=== PATIENT | female | born 1940 | race Caucasian/White ===

== ENCOUNTER → 2019-08-26 12:26 | Outpatient (BNVA) | payer MEDICARE, OTHER, SELFPAY | PROVIDERS: Family Provider Nurse Practitioner; Visit Provider Nurse Practitioner | DX: I10 Essential (primary) hypertension (principal); F42.9 Obsessive-compulsive disorder, unspecified; F41.9 Anxiety disorder, unspecified | CPT/HCPCS: 80053; 80061; 81000; 85025 ==

== ENCOUNTER → 2020-02-17 09:19 | Outpatient (BNVA) | payer OTHER, SELFPAY | PROVIDERS: Family Provider Nurse Practitioner; Visit Provider Nurse Practitioner | DX: I10 Essential (primary) hypertension (principal); E78.2 Mixed hyperlipidemia | CPT/HCPCS: 80053; 80061; 81000; 84443 ==

== ENCOUNTER → 2020-06-11 13:37 | Outpatient (BNVA) | payer OTHER, SELFPAY | PROVIDERS: Family Provider Nurse Practitioner; PCP Nurse Practitioner; Visit Provider Nurse Practitioner | DX: I10 Essential (primary) hypertension (principal); F42.9 Obsessive-compulsive disorder, unspecified; J44.9 Chronic obstructive pulmonary disease, unspecified; F41.9 Anxiety disorder, unspecified; E78.2 Mixed hyperlipidemia; K12.1 Other forms of stomatitis; E55.9 Vitamin D deficiency, unspecified | CPT/HCPCS: 80053; 80061; 82306; 82607; 85025 ==

== ENCOUNTER → 2020-07-09 09:34 | Outpatient (BNVA) | payer OTHER, SELFPAY | PROVIDERS: Family Provider Nurse Practitioner; PCP Nurse Practitioner; Visit Provider Specialist | DX: R22.1 Localized swelling, mass and lump, neck (principal) | CPT/HCPCS: 82565; 84520 ==

== ENCOUNTER 2020-07-24 08:58 | Outpatient (CLI) | payer OTHER, SELFPAY ==
--- NOTE | 2020-07-24 | CT_ITS ---
WS: [id number] CT scan of the neck. Additional two-dimensional coronal and sagittal reconstruction was performed. 12/2020 Clinical Data: LOCALIZED SWELLING, MASS AND LUMP Comparison: CT neck, 05/25/2018. DLP: 389.[address] scans at [facility] use at least one of these dose optimization techniques: automat ed exposure control; mA and/or kV adjustment per patient size (includes targeted exams where dose is matched to clinical indication); or iterative reconstruction. Findings: No lymphadenopathy is noted. The salivary glands are unremarkable. There is no prevertebral soft tiss ue swelling. The larynx is symmetric. The thyroid gland shows normal enhancement with bilateral areas of decreased density which are probably cysts. The largest area of decreased density in the right lo be of the thyroid is 0.9 cm.. The floor of the mouth and parapharyngeal spaces are normal. The oral c avity is unremarkable. The carotid arteries bifurcate normally. The vertebral arteries are normal. The cervical spine shows osteoarthritis from C4 through C7 with loss of normal lordotic curvature.. The lung apices show no ab normalities. The portions of the intracranial circulation which are seen demonstrate no abnormalities . No erosion of the skull or skull base is seen. There is mucoperiosteal thickening of the right maxi llary sinus with probable cysts. CT/CT neck w con* [id number] Impression: 1. Negative for lymphadenopathy. 2. Probable thyroid cysts. 3. Chronic right maxillary sinusitis.
[2020-07-24] MEDS: iohexol 300 mg/mL 100 mL Btl IV (09:28)
== END 2020-07-24 08:59 | disposition home or self-care (01) ==
LOC: RADWPI 09:05
PROVIDERS: PCP Nurse Practitioner; Visit Provider Specialist
DX: R22.1 Localized swelling, mass and lump, neck (principal); J32.0 Chronic maxillary sinusitis
CPT/HCPCS: 70491; Q9967

== ENCOUNTER 2020-08-19 14:54 | Outpatient (CLI) | payer MEDICARE, SELFPAY ==
--- NOTE | 2020-08-19 15:40 | ECG_ITS ---
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 Measurements Intervals [place] Rate: 88 P: 84 ME: 157 QRS: -5 QRSD: 75 T: 63 QT: 362 QTc: 440 Interpretive Statements SINUS RHYTHM WITH OCCASIONAL SUPRAVENTRICULAR PREMATURE COMPLEXES POSSIBLE LEFT ATRIAL ENLARGEMENT [-0.1mV P WAVE IN V1/V2] No previous ECG available for comparison Electronically Signed On 08-19-2020 23:03:09 CDT by Lin Orr M.D. [id number]
[2020-08-19 15:55] LABS: Basophils % 0.4 %; Eosinophils # 0.2 10^3/uL (0.0-0.8); Eosinophils % 2.2 %; Hematocrit 40.8 % (37.0-47.0); Hemoglobin 12.9 g/dL (11.5-15.3); Lymphocytes # 1.4 10^3/uL (0.8-4.8); Lymphocytes % 20.6 %; Mean Corpuscular HGB Conc 31.6 g/dL (30.0-36.0); Mean Corpuscular Hemoglobin 30.3 pg (28.0-34.0); Mean Corpuscular Volume 95.8 fL (81-99); Mean Platelet Volume 9.6 fL (7.4-10.4); Monocytes # 0.5 10^3/uL (0.2-0.9); Monocytes % 7.1 %; Neutrophils # 4.82 10^3/uL (1.8-7.7); Neutrophils % 69.4 %; Nucleated Red Blood Cells % 0 %; Platelet Count 271 10^3/cmm (130-400); Red Blood Count 4.26 10^6/uL (4.1-5.3); Red Cell Distribution Width 13.6 % (12.1-15.1); White Blood Count 6.9 10^3/uL (4.0-10.0)
[2020-08-19 16:47] LABS: Blood Urea Nitrogen 16 mg/dL (8-23); Calcium 9.5 mg/dL (8.5-10.5); Carbon Dioxide 27 mmol/L (22-29); Chloride 102 mmol/L (98-107); Glucose 98 mg/dL (65-115); Osmolality Calculated 293 mOsm/kg (285-295); Sodium 141 mmol/L (136-145)
== END 2020-08-19 14:55 | disposition home or self-care (01) ==
LOC: RT 15:01
PROVIDERS: PCP Nurse Practitioner; Visit Provider Specialist
DX: R22.1 Localized swelling, mass and lump, neck (principal)
CPT/HCPCS: 80048; 85025; 93005

== ENCOUNTER → 2020-08-26 10:15 | Outpatient (BNVA) | payer MEDICARE, SELFPAY | PROVIDERS: PCP Nurse Practitioner; Visit Provider Nurse Practitioner | DX: Z01.812 Encounter for preprocedural laboratory examination (principal); Z20.822 Contact with and (suspected) exposure to COVID-19; J44.9 Chronic obstructive pulmonary disease, unspecified | CPT/HCPCS: 71046; 87635 ==

== ENCOUNTER → 2020-12-18 10:20 | Outpatient (BNVA) | payer MEDICARE, SELFPAY | PROVIDERS: PCP Nurse Practitioner; Visit Provider Nurse Practitioner | DX: I10 Essential (primary) hypertension (principal); F42.9 Obsessive-compulsive disorder, unspecified; E78.2 Mixed hyperlipidemia; J44.9 Chronic obstructive pulmonary disease, unspecified; F41.9 Anxiety disorder, unspecified; K59.04 Chronic idiopathic constipation | CPT/HCPCS: 74018; 80053; 80061; 81000; 84443; 85025 ==

== ENCOUNTER 2021-02-24 13:29 | Outpatient (CLI) | payer MEDICARE, SELFPAY ==
--- NOTE | 2021-02-24 13:38 | MM_ITS ---
WS: [id number] BILATERAL DIGITAL SCREENING MAMMOGRAPHY WITH CAD CLINICAL INFORMATION: SCREENING HISTORY: Screening mammogram. No current complaints. COMPARISON: TECHNIQUE: Bilateral CC and MLO views. FINDINGS: The breasts are composed of heterogeneous fibroglandular density tissue, which can limit the detectio n of small underlying mass lesions. A few incidental benign calcifications. Vascular calcification. N o suspicious mass, asymmetry, calcifications, or architectural distortion. No evidence of malignancy. MM/[place] [id number] IMPRESSION: BI-RADS: 2-Benign FOLLOW UP: 1 Year Follow-up Recommend return to annual screening mammography.
== END 2021-02-24 13:30 | disposition home or self-care (01) ==
LOC: RADSHAW 13:34
PROVIDERS: PCP Nurse Practitioner; Visit Provider Nurse Practitioner
DX: Z12.31 Encounter for screening mammogram for malignant neoplasm of breast (principal)
CPT/HCPCS: 77067

== ENCOUNTER → 2021-06-04 10:45 | Outpatient (BNVA) | payer MEDICARE, SELFPAY | PROVIDERS: PCP Nurse Practitioner; Visit Provider Nurse Practitioner | DX: I10 Essential (primary) hypertension (principal) | CPT/HCPCS: 80053; 80061; 84443; 85025 ==

== ENCOUNTER → 2022-03-01 11:42 | Outpatient (BNVA) | payer MEDICARE, SELFPAY | PROVIDERS: PCP Nurse Practitioner; Visit Provider Nurse Practitioner | DX: I10 Essential (primary) hypertension (principal); E55.9 Vitamin D deficiency, unspecified | CPT/HCPCS: 80053; 80061; 82306; 82607; 84443; 85025 ==

== ENCOUNTER 2022-03-24 09:33 | Outpatient (CLI) | payer MEDICARE, SELFPAY ==
--- NOTE | 2022-03-24 09:44 | MM_ITS ---
WS: [id number] BILATERAL SCREENING DIGITAL TOMOSYNTHESIS MAMMOGRAM WITH CAD HISTORY: Screening. COMPARISON: 02/24/2021, 10/30/2018 Bilateral CC and MLO views with tomosynthesis and synthetic mammography submitted. Computer aided det ection analyzed. Breast composition: The breasts are extremely dense, which lowers the sensitivity of mammography. No suspicious masses, microcalcifications or architectural distortion. MM/[place] [id number] IMPRESSION: BI-RADS: 2-Benign FOLLOW UP: 1 Year Follow-up
== END 2022-03-24 09:34 | disposition home or self-care (01) ==
LOC: RAD 09:33
PROVIDERS: PCP Nurse Practitioner; Visit Provider Nurse Practitioner
DX: Z12.31 Encounter for screening mammogram for malignant neoplasm of breast (principal)
CPT/HCPCS: 77063; 77067

== ENCOUNTER → 2022-08-19 11:56 | Outpatient (BNVA) | payer MEDICARE, SELFPAY | PROVIDERS: PCP Nurse Practitioner; Visit Provider Nurse Practitioner | DX: I10 Essential (primary) hypertension (principal); E78.2 Mixed hyperlipidemia; M25.50 Pain in unspecified joint; J44.9 Chronic obstructive pulmonary disease, unspecified; F41.9 Anxiety disorder, unspecified; Z79.899 Other long term (current) drug therapy | CPT/HCPCS: 80053; 80061; 82306; 84443; 84550; 85025; 85651; 86140 ==

== ENCOUNTER → 2022-08-24 09:49 | Outpatient (BNVA) | payer MEDICARE, SELFPAY | PROVIDERS: PCP Nurse Practitioner; Visit Provider Nurse Practitioner | DX: M25.50 Pain in unspecified joint (principal); M54.50 Low back pain, unspecified; M47.896 Other spondylosis, lumbar region; M17.11 Unilateral primary osteoarthritis, right knee | CPT/HCPCS: 72100; 73562 ==

== ENCOUNTER → 2023-02-02 14:24 | Outpatient (BNVA) | payer MEDICARE, SELFPAY | PROVIDERS: PCP Nurse Practitioner; Visit Provider Nurse Practitioner | DX: K59.04 Chronic idiopathic constipation (principal); J44.9 Chronic obstructive pulmonary disease, unspecified; F42.9 Obsessive-compulsive disorder, unspecified; I10 Essential (primary) hypertension; E78.2 Mixed hyperlipidemia; M19.90 Unspecified osteoarthritis, unspecified site | CPT/HCPCS: 80053; 80061; 85025 ==

== ENCOUNTER → 2023-04-11 08:48 | Outpatient (BNVA) | payer MEDICARE, SELFPAY | PROVIDERS: PCP Nurse Practitioner; Visit Provider Nurse Practitioner Family | DX: R39.9 Unspecified symptoms and signs involving the genitourinary system (principal) | CPT/HCPCS: 81000 ==

== ENCOUNTER 2023-04-25 13:08 | Outpatient (CLI) | payer MEDICARE, SELFPAY ==
--- NOTE | 2023-04-25 13:30 | MM_ITS ---
WS: [id number] BILATERAL 3D TOMOSYNTHESIS DIGITAL SCREENING MAMMOGRAM WITH CAD CLINICAL INFORMATION: SCREENING HISTORY: Screening mammogram. No current complaints. COMPARISON: 2022 TECHNIQUE: Bilateral CC and MLO. FINDINGS: The breast are composed of extremely dense tissue, which can limit the detection of small underlying mass lesions. No suspicious focal mass, asymmetry, calcifications, or architectural distortion. No ev idence of malignancy. Incidental punctate calcifications. Vascular calcifications. IMPRESSION: MM/[place] [id number] BI-RADS: 2-Benign FOLLOW UP: 1 Year Follow-up Recommend return to annual screening mammography.
== END 2023-04-25 13:09 | disposition home or self-care (01) ==
LOC: MOBLMAM 13:36
PROVIDERS: PCP Nurse Practitioner; Visit Provider Nurse Practitioner
DX: Z12.31 Encounter for screening mammogram for malignant neoplasm of breast (principal)
CPT/HCPCS: 77063; 77067

== ENCOUNTER → 2023-07-12 11:27 | Outpatient (BNVA) | payer MEDICARE, SELFPAY | PROVIDERS: PCP Nurse Practitioner; Visit Provider Nurse Practitioner | DX: L29.9 Pruritus, unspecified (principal); E55.9 Vitamin D deficiency, unspecified; E78.2 Mixed hyperlipidemia; J44.9 Chronic obstructive pulmonary disease, unspecified; F42.9 Obsessive-compulsive disorder, unspecified; I10 Essential (primary) hypertension; K59.04 Chronic idiopathic constipation | CPT/HCPCS: 80053; 80061; 82306; 82607; 86038 ==

== ENCOUNTER → 2023-08-01 09:30 | Outpatient (BNVA) | payer MEDICARE, SELFPAY | PROVIDERS: PCP Nurse Practitioner; Visit Provider Podiatrist Foot & Ankle Surgery | DX: L84 Corns and callosities; Z85.828 Personal history of other malignant neoplasm of skin | CPT/HCPCS: 99203 ==

== ENCOUNTER → 2023-10-10 09:14 | Outpatient (BNVA) | payer MEDICARE, SELFPAY | PROVIDERS: PCP Nurse Practitioner; Visit Provider Nurse Practitioner | DX: I10 Essential (primary) hypertension (principal); E55.9 Vitamin D deficiency, unspecified; E78.2 Mixed hyperlipidemia; F41.9 Anxiety disorder, unspecified | CPT/HCPCS: 80053; 80061; 82306; 82607; 84443; 85025 ==

== ENCOUNTER → 2023-10-17 14:39 | Outpatient (BNVA) | payer MEDICARE, SELFPAY | PROVIDERS: PCP Nurse Practitioner; Visit Provider Nurse Practitioner | DX: I10 Essential (primary) hypertension (principal) | CPT/HCPCS: 81000 ==

== ENCOUNTER → 2023-11-13 09:59 | Outpatient (BNVA) | payer MEDICARE, SELFPAY | PROVIDERS: PCP Nurse Practitioner; Referring Provider Nurse Practitioner; Visit Provider Internal Medicine | DX: R00.2 Palpitations (principal); I49.1 Atrial premature depolarization; I49.3 Ventricular premature depolarization; I47.20 Ventricular tachycardia, unspecified; I49.8 Other specified cardiac arrhythmias | CPT/HCPCS: 93242 ==

== ENCOUNTER 2023-12-01 09:53 | Outpatient (CLI) | payer MEDICARE, SELFPAY ==
--- NOTE | 2023-12-01 10:30 | CT_ITS ---
WS: [id number] CT HEAD NONCONTRAST HISTORY: R51.9 - Headache, unspecified TECHNIQUE: Contiguous axial imaging performed through the brain. Bone and soft tissue windows. Sagitt al and coronal reformats reviewed. All CT scans at [facility] use at least one of these dose optimization techniques: automated exposure control; mA and/or kV adjustment per patient size (includ es targeted exams where dose is matched to clinical indication); or iterative reconstruction. DLP: 1042.79 mGy.cm COMPARISON: None available. No acute intracranial hemorrhage, midline shift or mass effect. Mild symmetric atrophy. There is extensive confluent low signal throughout the white matter from smal l vessel disease. No prior infarcts. Ventricles: Normal size with no hydrocephalus. No inferior displacement of the cerebellar tonsils. Paranasal sinuses: As visualized are clear. Mastoid air cells: Well pneumatized. Calvarium and scalp: Skull is intact with no soft tissue edema or swelling. CT/CT head wo con* [id number] IMPRESSION: 1. No acute intracranial hemorrhage or edema. 2. Mild cerebral atrophy with advanced small vessel ischemic disease. No prior infarcts.
--- NOTE | 2023-12-01 11:00 | CT_ITS ---
WS: [id number] CT CHEST, ABDOMEN AND PELVIS HISTORY: R63.4 - Abnormal weight loss, J44.9 - Chronic obstructive pulmonary disease TECHNIQUE: Contiguous 5 mm axial imaging performed through the chest, abdomen and pelvis without IV c ontrast, oral contrast has been provided. Coronal and sagittal reformats chest. Coronal and sagittal reformats through the abdomen and pelvis. All CT scans at [facility] use at least one of thes e dose optimization techniques: automated exposure control; mA and/or kV adjustment per patient size (includes targeted exams where dose is matched to clinical indication); or iterative reconstruction. CONTRAST: Omnipaque 350; 100 mL IV. DLP: 358.55 mGy.cm COMPARISON: CT neck 05/25/[address]: Lungs are hyperinflated with emphysema. Subpleural spiculated nodule periphery LEFT upper l obe measures 9 mm. This nodule was also present in [address] of the neck. No additional masses. Moderate atherosclerosis aorta. Coronary artery calcifications. Heart size is normal. No pericardial or pleural effusions. Hilar lymphadenopathy would be difficult to exclude. Indeterminate inferior RIG HT paratracheal lymph nodes measure up to 11 mm. No axillary adenopathy. Small hiatal hernia. Abdomen CT: Liver wraps around the anterior abdomen to the LEFT. This is a normal variant. Prior chol ecystectomy. Normal size spleen. Normal pancreas is visualized. The head of the pancreas is not well seen due to overlapping adjacent soft tissue structures. No adrenal mass. No renal obstructions. Athe rosclerosis aorta. No aneurysm. Stomach is normally distended. No small bowel obstruction. Marked diffuse constipation. No adenopathy , free fluid or ascites identified. Pelvic CT: Negative urinary bladder. Bladder is well distended. There is no free fluid or adenopathy in the pelvis. Mild anterior wedging of superior endplate of T12. 8 mm calcification in the central spinal canal at the T12 level. The location is difficult to determine but I suspect this is extradural. May be extend ing from the facet joint or vertebral body. [place] [id number] IMPRESSION: 1. Decreased sensitivity and specificity of the study due to lack of contrast. 2. Chronic emphysema with a stable subpleural nodule measuring 9 mm LEFT upper lobe. Nodule was present on a prior neck CT of 05/25/2018. 3. Extensive atherosclerotic calcifications in the thoracic and abdominal aort a and coronary arteries. 4. Prior cholecystectomy. 5. Marked diffuse fecal retention. No obstructive pattern. 6. No ascites or adenopathy. 7. Dense calcification measuring 8 mm at the T12 level. This is probably an ex tradural mass encroaching into the spinal canal. May be associated with the fac et joint or osteophyte. If this is symptomatic additional evaluation by MRI can be obtained with and without contrast.
[2023-12-01] MEDS: iohexol 350 mg/mL 500 mL Btl (per mL) PO (12:34)
== END 2023-12-01 09:54 | disposition home or self-care (01) ==
LOC: RAD 09:54
PROVIDERS: PCP Nurse Practitioner; Visit Provider Nurse Practitioner
DX: R63.4 Abnormal weight loss; R51.9 Headache, unspecified; F17.210 Nicotine dependence, cigarettes, uncomplicated; J43.9 Emphysema, unspecified; R91.1 Solitary pulmonary nodule; I70.0 Atherosclerosis of aorta; I25.84 Coronary atherosclerosis due to calcified coronary lesion; Z90.49 Acquired absence of other specified parts of digestive tract; K59.00 Constipation, unspecified; M25.78 Osteophyte, vertebrae
CPT/HCPCS: 70450; 71250; 74176

== ENCOUNTER → 2023-12-20 08:42 | Outpatient (BNVA) | payer MEDICARE, SELFPAY | PROVIDERS: PCP Nurse Practitioner; Visit Provider Podiatrist Foot & Ankle Surgery | DX: L84 Corns and callosities | CPT/HCPCS: 99213 ==

== ENCOUNTER → 2024-01-23 10:37 | Outpatient (BNVA) | payer MEDICARE, SELFPAY | PROVIDERS: PCP Nurse Practitioner; Visit Provider Podiatrist Foot & Ankle Surgery | DX: L84 Corns and callosities | CPT/HCPCS: 99213 ==

== ENCOUNTER → 2024-02-12 09:38 | Outpatient (BNVA) | payer MEDICARE, SELFPAY | PROVIDERS: PCP Nurse Practitioner; Visit Provider Clinical Nurse Specialist Adult Health | DX: N39.0 Urinary tract infection, site not specified (principal) | CPT/HCPCS: 81000; 87086 ==

== ENCOUNTER → 2024-04-23 13:47 | Outpatient (BNVA) | payer MEDICARE, SELFPAY | PROVIDERS: PCP Nurse Practitioner; Visit Provider Nurse Practitioner | DX: I10 Essential (primary) hypertension (principal); E78.2 Mixed hyperlipidemia; E55.9 Vitamin D deficiency, unspecified | CPT/HCPCS: 80053; 80061; 82306; 82607; 84443 ==

== ENCOUNTER 2024-09-19 10:30 | Inpatient (IN) | payer MEDICARE, SELFPAY ==
[2024-09-19] VITALS (10 sets, daily range): BP systolic 140–159; BP diastolic 66–103; PULSE 85–100; RESP 16–18; TEMP 36.3–36.9; O2SAT 90–97; BMI 18.6
--- OUTSIDE RECORDS SUMMARY | 2024-09-19 10:36 | XMS_ITS | Encounter Summary ---
Author Organization [facility] Address [address] [place] [address] Care Team Providers Care Lead Software Architect Name Role Phone Unavailable Primary Care Provider Unavailabl e Encounter Details Date Type Department Care Team (Latest Contact Info) Description 07/02/1997 Outpatient Historical [facility] [address] [place] [address] Chevy Kumar MD NO ADDRESS ON FILE Chronic cholecystitis (Primary Dx) Social History Tobacco Use Types Packs/Day Years Used Date Smoking Tobacco: Never Assessed Comments Unknown Sex and Gender Information Value Date Recorded Sex Assigned at Not on file 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
--- OUTSIDE RECORDS SUMMARY | 2024-09-19 10:36 | XMS_ITS | Clinical Summary ---
Author Organization [facility] Address [address] 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
--- NOTE | 2024-09-19 10:42 | XR_ITS ---
WS: [id number] XR hip LT 2-3V wo/w pel* [id number] REASON FOR EXAM: fall, left hip pain. with pelvis FINDINGS: Subcapital fracture of the left hip with mild displacement of the femoral neck and shaft. Superior inferior pubic rami intact. XR/XR hip LT 2-3V wo/w pel* [id number] IMPRESSION: Subcapital fracture as above.
--- NOTE | 2024-09-19 10:49 | ED_ITS ---
HPI - Extremity Problem 2 General: Chief complaint: Extremity Injury, Lower Stated complaint: left hip pain Time Seen by Provider: 09/19/24 10:31 History of Present Illness: 83-year-old female with a history of tob acco dependence, constipation, COPD, chronic kidney disease and hypertension who presents emergency room after having had a fall. She says she fell over a garden hose. She says she landed on her hip and had some pain but was able to stand up. She said she walked to the house but when she went to step up on the stairs she felt something pop and give way and she fell down and ended up having to drag herself into the house. She had no head injuries. She has no other notable injuries. No loss of consciousness. No altered mental status. No chest pain. No abdominal pain. No nausea or vomiting. Related Data Previous Rx's ?Medication ?Instructions ?Recorded clobetasol 0.05 % topical ointment 1 applic topical BI D 2 weeks #60 10/17/23 grams beclomethasone dipropionate 80 1 inh inhalation Q12H # 10.6 grams 04/23/24 mcg/actuation HFA breath activated aerosol (Qvar RediHaler) fenofibrate nanocrystallized 145 145 mg PO DAILY #90 t abs 04/23/24 mg tablet propranolol 60 mg capsule,24 60 mg PO DAILY #90 caps 0 04/23/24 hr,extended release (Inderal LA) clomipramine 75 mg capsule 75 mg PO DAILY #30 caps diclofenac sodium 1 % topical gel 2 g topical QID #100 grams 07/24/24 (Voltaren Arthritis Pain) Allergies Allergy/AdvReac Type Severity Reaction Status Date / Time atorvastatin (From Lipitor) Allergy Unknown Unknown Verified 09/12/24 16:01 azithromycin Allergy Unknown Unknown Verified 09/12/24 16:01 levofloxacin (From Levaquin) Allergy Unknown Unknown Verified 09/12/24 16:01 Penicillins Allergy Unknown Unknown Verified 09/12/24 16:01 phenobarbital Allergy Unknown Unknown Verified 09/12/24 16:01 macrobid AdvReac Severe Heart Uncoded 09/12/24 16:01 races, severe breathing, N & V Review of Systems 2 Narrative: Constitutional symptoms: Negative except as documented in HPI. Skin symptoms: Negative except as documented in HPI. Eye symptoms: Negative except as documented in HPI. ENMT symptoms: Negative except as documented in HPI. Respiratory symptoms: Negative except as documented in HPI. Cardiovascular symptoms: Negative except as documented in HPI. Gastrointestinal symptoms: Negative except as documented in HPI. Genitourinary symptoms: Negative except as documented in HPI. Musculoskeletal symptoms: Negative except as documented in HPI. Neurologic symptoms: Negative except as documented in HPI. Psychiatric symptoms: Negative except as documented in HPI. Endocrine symptoms: Negative except as documented in HPI. PFSH ED 2 PFSH: Medical History (Updated 09/19/24 @ 11:53 by Shabana Pacheco MD) Psychiatric care Cigarette smoker Chronic idiopathic constipation COPD (chronic obstructive pulmonary disease) OA (osteoarthritis) CKD (chronic kidney disease) Environmental and seasonal allergies Essential (primary) hypertension Surgical History History of hysterectomy Family History Other Nicotine dependence Social History Smoking and tobacco/nicotine status: current every day tobacco/nicotine user Second hand smoke exposure: Yes Alcohol intake: never Substance/Drug Use: never Adopted: No Caregiver/support person: No Lives independently: Yes Household members: spouse Housing: House Marital status: service: No Do you think of yourself as: Straight/Heterosexual Current gender identity: Female Physical Exam 2 Narrative: EXAM NARRATIVE: General: Alert, no acute distress. Skin: Warm, dry. Head: Normocephalic, atraumatic. Neck: Supple, trachea midline. Eye: Extraocular movements are intact. Ears, nose, mouth and throat: mucosa moist. Cardiovascular: Regular, Normal peripheral perfusion. Respiratory: Lungs are clear to auscultation, respirations are non-labored, breath sounds are equal, Symmetrical chest wall expansion. Gastrointestinal: Soft, Nontender, Non distended Musculoskeletal: No obvious shortening or rotation, but patient does have quite a bit of pain with movement of her leg and the left hip. Neurovascularly intact. Neurological: Alert and oriented, No focal neurological deficit observed. Psychiatric: Cooperative, appropriate mood & affect. Course 2 Vital Signs: Vital signs: Vital Signs Temperature 98.5 F 09/19/24 10:33 Pulse Rate 91 09/19/24 12:00 Respiratory Rate 16 09/19/24 11:10 Blood Pressure 145/74 09/19/24 12:00 Pulse Oximetry 90 09/19/24 12:00 Oxygen Delivery Me thod Room Air 09/19/24 12:00 MDM - Extremity (Nontraumatic) Medical Decision Making Medical decision making: Differential diagnosis for the patient with fall and hip pain includes but not limited to and based on the above HPI, review of systems and physical exam: Hip fracture, femur fracture, pelvic fractures including pubic rami and acetabular fractures, hip strain, hip contusion. After hip fracture was determined presurgical workup was ordered including lab work EKG and chest x-ray X-ray of the pelvis and hip: Subcapital/femoral neck fracture with mild displacement. No obvious pelvic fractures. This was reviewed and interpreted by myself the emergency room physician. I also reviewed the radiology report. Chest x-ray: Hyperexpansion, emphysematous changes but no acute process. No infiltrate. No pneumothorax. This was reviewed and interpreted by myself the emergency room physician. I also reviewed the radiology report. EKG: Time 11:20 AM. Rate 90. Normal sinus rhythm, No ST-T changes, no ectopy, normal TX & QRS intervals, This was reviewed and interpreted by myself the ER physician at 11:25 AM Lab review: I reviewed and interpreted all lab work personally. No leukocytosis. No anemia. No renal failure. Urinalysis is negative for infection. Liver enzymes are normal. Coags are normal. I reviewed the patient's chart: 83-year-old female with a history of tobacco dependence, constipation, COPD, chronic kidney disease and hypertension Reexamination: Patient remained stable. No increased work of breathing. No altered mental status. No focal motor deficits. Consultation: I spoke with Dr. Vasquez who is on-call for orthopedics who reviewed the films and is consulting on the patient and will most likely do surgery tomorrow. Consultation: I spoke with Dr. Guerrero who is on-call for the hospitalist service who agrees to admission. Assessment and plan: Hip fracture -I discussed the patient with the hospitalist on-call who is admitting the patient. - Discussed findings and plan with patient. Answered any questions. - All laboratory values were reviewed and interpreted personally by myself, the ER physician - All imaging was reviewed and interpreted personally by myself, the ER physician. - Evaluation and treatment of this problem were appropriate in the emergency setting Lab Data 09/19/24 10:41 09/19/24 11:46 Radiology Impressions Hip/Pelvis X-Ray 09/19/24 10:42 IMPRESSION: Subcapital fracture as above. Chest X-Ray 09/19/24 11:03 IMPRESSION: Mild cardiomegaly. Probable central lobar emphysema without lung hyperexpansion. Laboratory Results WBC 8.36 10^3/uL (3.29-11.43) 09/19/24 10:41 RBC 4.12 10^6/uL (3.85-5.65) 09/19/24 10:41 Hgb 12.60 g/dL (11.27-16.99) 09/19/24 10:41 Hct 38.4 % (36-47) 09/19/24 10:41 MCV 93.2 fl (85-98) 09/19/24 10:41 MCH 30.6 pg (27-33) 09/19/24 10:41 MCHC 32.8 g/dL (30-55) 09/19/24 10:41 RDW 13.6 % (12.1-15.1) 09/19/24 10:41 Plt Count 234 10^3/cmm (157-399) 09/19/24 10:41 MPV 10.3 fL (7.4-10.4) 09/19/24 10:41 Neut % (Auto) 83.5 % 09/19/24 10:41 Lymph % (Auto) 10.3 % 09/19/24 10:41 Ceiba % (Auto) 4.8 % 09/19/24 10:41 Eos % (Auto) 0.8 % 09/19/24 10:41 Baso % (Auto) 0.2 % 09/19/24 10:41 Neut # (Auto) 6.98 10^3/uL (1.8-7.7) 09/19/24 10:41 Lymph # (Auto) 0.9 10^3/uL (0.8-4.8) 09/19/24 10:41 Ceiba # (Auto) 0.4 10^3/uL (0.2-0.9) 09/19/24 10:41 Eos # (Auto) 0.1 10^3/uL (0.0-0.8) 09/19/24 10:41 Baso # (Auto) 0.0 10^3/uL (0.0-0.1) 09/19/24 10:41 Nucleated RBC % (auto) 0 % 09/19/24 10:41 Nucleated RBCs # 0.0 /100WBC 09/19/24 10:41 PT 12.90 SECONDS (12.1-14.9) 09/19/24 10:41 INR 0.90 (0.8-1.2) 09/19/24 10:41 APTT 29.2 SECONDS (23.9-36.7) 09/19/24 10:41 Sodium 137 mmol/L (136-145) 09/19/24 11:46 Potassium 3.7 mmol/L (3.5-5.1) 09/19/24 11:46 Chloride 101 mmol/L (98-107) 09/19/24 11:46 Carbon Dioxide 25 mmol/L (22-29) 09/19/24 11:46 Anion Gap 14.7 (5-19) 09/19/24 11:46 BUN 18 mg/dL (8-23) 09/19/24 11:46 Creatinine 0.7 mg/dL (0.5-0.9) 09/19/24 11:46 GFR Calculation Not Reportable 09/19/24 11:46 Glucose 90 mg/dL (65-115) 09/19/24 11:46 Calculated Osmolality 285 mOsm/kg (285-295) 09/19/24 11:46 Calcium 9.4 mg/dL (8.5-10.5) 09/19/24 11:46 Total Bilirubin 0.5 mg/dL (0.15-1.2) 09/19/24 11:46 AST 26 U/L (0-32) 09/19/24 11:46 ALT 21 U/L (0-33) 09/19/24 11:46 Alkaline Phosphatase 73 U/L (35-105) 09/19/24 11:46 Total Protein 7.0 g/dL (6.6-8.7) 09/19/24 11:46 Albumin 4.0 g/dL (3.5-5.2) 09/19/24 11:46 Globulin 3.0 g/dL (1.3-4.6) 09/19/24 11:46 Urine Color Yellow (Yellow) 09/19/24 11:55 Urine Appearance Clear (CLEAR) 09/19/24 11:55 Urine pH 8.0 (5-7) A 09/19/24 11:55 Ur Specific [place] 1.012 (1.005-1.030) 09/19/24 11:55 Urine Protein Negative (Negative) 09/19/24 11:55 Urine Glucose (UA) Negative (Normal) 09/19/24 11:55 Urine Ketones Negative (Negative) 09/19/24 11:55 Urine Blood Negative (Negative) 09/19/24 11:55 Urine Nitrate Negative (Negative) 09/19/24 11:55 Urine Bilirubin Negative (Negative) 09/19/24 11:55 Urine Urobilinogen 1.0 mg/dL (Negative) 09/19/24 11:55 Ur Leukocyte Esterase Negative (Negative) 09/19/24 11:55 Amorphous Sediment Not Reportable 09/19/24 11:55 All radiology interpretation(s) finalized by discharge Discharge Plan Discharge Patient Disposition: Admitted As Inpatient Clinical Impression: Fracture of hip Condition: Stable Coding Level of Care Code ED Financial Compliance Manager for Guera Valenzuela
--- NOTE | 2024-09-19 11:03 | XR_ITS ---
WS: [id number] XR chest 1V portable [id number] REASON FOR EXAM: presurgical work up FINDINGS: Mild calcification in the aortic arch with minimal tortuosity the thoracic aorta. The heart is mildly enlarged. Prominent interstitium with multiple small lucencies throughout the lung parenchyma compatible with central lobar emphysema. The lungs are not hyperexpanded. Calcified granulomatous disease bilaterally. No acute pulmonary parenchymal or pleural abnormality. Significant osteoarthritis in both shoulder joints. No significant compression deformities in the thoracic spine. XR/XR chest 1V portable [id number] IMPRESSION: Mild cardiomegaly. Probable central lobar emphysema without lung hyperexpansion.
[2024-09-19 11:12] LABS: Hematocrit 38.4 % (36-47); Hemoglobin 12.60 g/dL (11.27-16.99); Mean Corpuscular HGB Conc 32.8 g/dL (30-55); Mean Corpuscular Hemoglobin 30.6 pg (27-33); Mean Corpuscular Volume 93.2 fl (85-98); Nucleated Red Blood Cells % 0 %; Platelet Count 234 10^3/cmm (157-399); Red Blood Count 4.12 10^6/uL (3.85-5.65); White Blood Count 8.36 10^3/uL (3.29-11.43)
--- NOTE | 2024-09-19 11:20 | ECG_ITS ---
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 Measurements Intervals [place] Rate: 90 P: 83 [place]: 174 QRS: -16 QRSD: 92 T: 72 QT: 385 QTc: 472 Interpretive Statements SINUS RHYTHM NONSPECIFIC T-WAVE ABNORMALITY Compared to ECG 08/19/2020 15:27:27 T-wave abnormality now present Electronically Signed On 09-20-2024 13:52:39 CDT by Lin Orr M.D. [email or web address]
[2024-09-19 11:36] LABS: INR 0.90 (0.8-1.2); Partial Thromboplastin Time 29.2 SECONDS (23.9-36.7); Prothrombin Time 12.90 SECONDS (12.1-14.9)
[2024-09-19 12:08] LABS: Alanine Aminotransferase 21 U/L (0-33); Albumin Level 4.0 g/dL (3.5-5.2); Alkaline Phosphatase 73 U/L (35-105); Anion Gap 14.7 (5-19); Aspartate Amino Transferase 26 U/L (0-32); Blood Urea Nitrogen 18 mg/dL (8-23); Calcium 9.4 mg/dL (8.5-10.5); Carbon Dioxide 25 mmol/L (22-29); Chloride 101 mmol/L (98-107); Creatinine Clr Calc Pharmacy 40.2436; Globulin 3.0 g/dL (1.3-4.6); Glucose 90 mg/dL (65-115); Osmolality Calculated 285 mOsm/kg (285-295); Potassium 3.7 mmol/L (3.5-5.1); Sodium 137 mmol/L (136-145); Total Protein 7.0 g/dL (6.6-8.7)
[2024-09-19 12:17] LABS: Glucose Urine UA Negative (Normal); Nitrate Urine Negative (Negative); Specific Gravity, Urine 1.012 (1.005-1.030)
--- NOTE | 2024-09-19 12:49 | PC.NURSE ---
Pt states she is refusing pain medications states she has too many reactions to pain meds and pt has refused hoyt catheter states I do not want one .
--- NOTE | 2024-09-19 13:04 | PM.HP ---
Providers/Chief Complaint Admitting Physician: Kyle Guerrero Primary Care Provider: Carlos Mittal, NATHALIA-C Chief Complaint: left hip pain History of Present Illness Brielle Turpin is a 83 year old woman with chronic kidney disease, chronic obstructive pulmonary disease, osteoarthritis, hypertension, and active tobacco use who tripped on a garden hose earlier today, landed on her left side, and noted immediate hip pain. She was able to stand briefly but, while walking upstairs, felt and heard a ?pop,? experienced sudden left-leg give-way, and had to drag herself indoors. She denied head trauma. Emergency department evaluation revealed a subcapital fracture of the left hip. Current symptoms include left-hip pain and a three-week history of right-knee pain with intermittent swelling after the knee ?gave out.? She denies fever, chills, sore throat, cough, chest pain, dyspnea at rest, nausea, vomiting, diarrhea, melena, hematuria, dysuria, or new rashes. A recent diagnosis of systemic lupus erythematosus was made about one year ago; she is not on corticosteroids but uses topical moisturizers for pruritus of the left arm. She reports irritable bowel syndrome and chronic low-back pain from a compressed disc and spinal curvature, causing exertional leg pain and fatigue. Home functional capacity is high; she lives alone, performs household and outdoor chores, and was washing windows the morning of presentation. 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 Vital signs on arrival were blood pressure 140/66 mmHg, pulse 89 bpm, respiratory rate 16 breaths/min, temperature 98.5 ?F, and oxygen saturation 92 % on room air. She reports an unclear history of penicillin allergy dating back to childhood and multiple listed medication allergies. Smoking history is approximately one pack per day; she denies alcohol or recreational drug use. Review of Systems Const: Denies: fever(s), chills, body aches or malaise ENMT: Denies: throat pain Card: Denies: chest pain, edema, pre-syncope or dyspnea on exertion Resp: Denies: dyspnea, productive cough, change in phlegm color or hemoptysis GI: Denies: abdominal pain, nausea, vomiting, diarrhea, constipation, hematochezia or melena : Denies: flank pain, urinary frequency or hematuria Musc: Denies: back pain, joint swelling or joint redness Skin/Breast: Denies: rash or new lesions Neuro: Denies: headache(s) or confusion Medications/Allergies Home Medications ?Medication ?Instructions ?Recorded ?Confirmed ?Last Taken ?Type beclomethasone dipropionate 80 1 inh inhalation Q12H #10.6 grams 04/23/24 09/12/24 Unknown Rx mcg/actuation HFA breath activated aerosol (Qvar RediHaler) fenofibrate nanocrystallized 145 145 mg PO DAILY #90 tabs 04/23/24 09/12/24 Unknown Rx mg tablet propranolol 60 mg capsule,24 60 mg PO DAILY #90 caps 04/23/24 09/12/24 Unknown Rx hr,extended release (Inderal LA) clomipramine 75 mg capsule 75 mg PO DAILY #30 caps 05/29/24 09/12/24 Unknown Rx diclofenac sodium 1 % topical gel 2 g topical QID #100 grams 07/24/24 09/12/24 Unknown Rx (Voltaren Arthritis Pain) acetaminophen 325 mg tablet 650 mg PO QID PRN Fever Or Pain 09/19/24 09/19/24 Unknown History (Tylenol) aspirin 81 mg tablet,delayed 81 mg PO DAILY pain 09/19/24 09/19/24 Unknown History release (Lorenzo Low Dose Aspirin) multivitamin with minerals-folic 1 tab PO DAILY 09/19/24 09/19/24 09/18/24 History acid 0.4 mg tablet naproxen sodium 220 mg tablet 220 mg PO Q12H PRN Fever Or Pain 09/19/24 09/19/24 09/19/24 History (Aleve) Allergies Allergy/AdvReac Type Severity Reaction Status Date / Time atorvastatin (From Lipitor) Allergy Unknown Unknown Verified 09/12/24 16:01 azithromycin Allergy Unknown Unknown Verified 09/12/24 16:01 levofloxacin (From Levaquin) Allergy Unknown Unknown Verified 09/12/24 16:01 Penicillins Allergy Unknown Unknown Verified 09/12/24 16:01 phenobarbital Allergy Unknown Unknown Verified 09/12/24 16:01 macrobid AdvReac Severe Heart Uncoded 09/12/24 16:01 races, severe breathing, N & V PFSH Acute PFSH: Medical History Psychiatric care Cigarette smoker Chronic idiopathic constipation COPD (chronic obstructive pulmonary disease) OA (osteoarthritis) CKD (chronic kidney disease) Environmental and seasonal allergies Essential (primary) hypertension Surgical History History of hysterectomy Family History Other Nicotine dependence Social History Smoking and tobacco/nicotine status: current every day tobacco/nicotine user Second hand smoke exposure: Yes Alcohol intake: never Substance/Drug Use: never Adopted: No Caregiver/support person: No Lives independently: Yes Household members: spouse Housing: House Marital status: service: No Do you think of yourself as: Straight/Heterosexual Current gender identity: Female Vitals/I&O/Wt Last Vital Signs Temp 98.5 F 09/19/24 10:33 Pulse 89 09/19/24 12:30 Resp 16 09/19/24 11:10 BP 140/66 09/19/24 12:30 Pulse Ox 92 09/19/24 12:30 O2 Del Method Room Air 09/19/24 12:30 Weight last 48 hrs Weight 45.359 kg Physical Exam Const: COMMON NORMALS: patient oriented x3 and alert GENERAL APPEARANCE: cooperative ORIENTATION/CONSCIOUSNESS: Yes awake HENMT: COMMON NORMALS: oropharynx normal Neck/C-Spine: COMMON NORMALS: no JVD Resp: COMMON NORMALS: normal respiratory effort and clear to auscultation bilaterally AUSCULTATION: clear to auscultation bilaterally Cardio: COMMON NORMALS: no JVD, regular rhythm, S1 normal heart sound present, S2 normal heart sound present and No murmurs present (Cardio) RHYTHM: regular rhythm HEART SOUNDS: S1 normal heart sound present and S2 normal heart sound present OTHER: 2/4 aortic murmur GI: COMMON NORMALS: Normal to inspection, nondistended, normoactive bowel sounds present, Soft to palpation and non-tender PALPATION: Yes Soft to palpation Extremity: COMMON NORMALS: no joint enlargement and no pedal edema Neuro: COMMON NORMALS: patient oriented x3 and moves all extremities SENSORIUM/ORIENTATION: Yes alert Skin: COMMON NORMALS: no rashes or lesions noted GENERAL SKIN EXAM: no rashes or lesions noted Data 09/19/24 10:41 09/19/24 11:46 A&P Assessment and plan 1. Closed fracture of left hip, initial encounter: Mechanical fall resulted in subcapital fracture of the left hip; timely surgical repair advised to prevent deconditioning, pneumonia, pressure sores, and prolonged hospitalization. Discussed risks with anesthesia. With underlying CKD, COPD, advanced age, smoking, additional comorbidities. Risk of all complications, severe complications, morbidity and mortality, consideration of alternatives, currently at risk of delayed difficult recovery in case of delays of surgical intervention. She would like to pursue surgical repair to try to regain her quality of life as she has been quite active. She has not had chest pain or pressure with exertion, gets dyspneic with very long walking, but otherwise without shortness of breath. No syncopal or syncopal episodes. No history of coronary disease or stroke in herself. Reviewed EKG, noted some flattening of T waves in 1 and aVL. Otherwise unremarkable workup in ED reviewed vitals CBC INR CMP UA chest x-ray hip x-ray, ED provider note, discussed with ED provider. Discussed with orthopedic surgeon anesthesiology. As discussed she does have 2/4 aortic site murmur although has not appeared to be symptomatic from possible aortic valve disease. Will obtain TTE for informational purposes. Anesthesia planning to be mindful of possible aortic pathology. Recent diagnosis of lupus, however, reports symptoms only on the skin. Had not been requiring corticosteroids or any other immunosuppressants. Acetaminophen as needed for milder pain. IV morphine requested for severe breakthrough pain which she has required. - Keep NPO (nothing by mouth) after midnight. - Re-check blood counts pre-operatively to monitor for blood loss. - Administer cautious IV hydration because of age and size. - Initiate postoperative blood-thinner prophylaxis to reduce venous thromboembolism risk (to be ordered after surgery). For now VTE prophylaxis with Lovenox and SCD. - Arrange physical therapy assessment post-surgery to facilitate mobilization. Post DC planning depending on performance of the surgery. Plan: Right knee pain with effusion : Three-week history of right-knee pain and intermittent swelling after knee gave out; mild effusion noted on exam, concern for degenerative arthritis. - Discussed with orthopedics today with plan to obtain x-ray of the right knee after the surgery. Otherwise without erythema diffuse swelling, she does have some effusion, no signs of infection. - Advise patient to discuss knee complaint with orthopedic surgeon during hip consult. Chronic obstructive pulmonary disease : Long-standing COPD; active smoker increases perioperative pulmonary risk. Chronic kidney disease : Known CKD; baseline labs within normal limits. Hypertension : History of hypertension; current blood pressure 140/66 mmHg. Osteoarthritis : Generalized osteoarthritis contributing to right-knee symptoms. Systemic lupus erythematosus : Recent diagnosis; currently managed with topical agents for pruritus. Maintain VTE prophylaxis. Resume her home ointments once available. Requested to confirm home medications. Irritable bowel syndrome : Chronic gastrointestinal condition causing intermittent ?goosy stomach.? Nicotine dependence : Discussed smoking cessation for 4 minutes. She is aware of complications with smoking discussed risks. Encouraged cessation. She is agreeable to nicotine replacement in the hospital. Requested. Current [id number]-day smoker; cessation encouraged to improve lung and cardiovascular health and reduce surgical risk. - Initiate nicotine patch therapy with additional lozenges as needed for cravings. Systolic heart murmur : 2/4 systolic murmur over aortic area; etiology unclear. - Obtain transthoracic echocardiogram for informational purposes (discussed with anesthesiologist and orthopedic surgeon). Follow-up : Postoperative and rehabilitative course to be determined based on recovery. PDMP PDMP Reviewed: Not Reviewed Attestations Medical Necessity Statement*: Admission over 2 midnights anticipated for assessment and management of left hip fracture in a lady with additional underlying comorbidities, advanced age as above. and High MDM includes amount and/or complexity of data reviewed/ordered [ previous or external records, resulted lab(s)/test(s), ordered lab(s)/test(s) and other healthcare professional discussion] and described risk of complication, morbidity or mortality of management as documented Diagnoses Closed fracture of left hip, initial encounter S72.002A Encounter type: initial encounter Fracture type: closed Laterality: left
[2024-09-19] MEDS: morphine 4 mg/mL SDV 1 mL 2 MG IVP ×2 (14:48→20:23)
[2024-09-19] MEDS: ondansetron 2 mg/ML SDV 2 mL 4 MG IVP ×2 (14:51→19:11)
--- NOTE | 2024-09-19 16:34 | USCV_ITS ---
Brielle Turpin Age: 83 Gender: F : 1940 Exam Date: 09/19/2024 19:28 Ordering Phys: Kyle Guerrero MD Technologist: MARQUISE Exam Location: [facility] [place] Indication: systolic murmur, chronic renal failure, COPD, HTN, long-term smoker continues smoking, LEFT hip fx c/o GLF BP: 140 / 66 HR: 99 Rhythm: Sinus Technical Quality: technically difficult c/o acute LEFT hip fracture MEASUREMENTS (Male / Female) Normal Values 2D ECHO LV Diastolic Diameter PLAX 4.7 cm 4.2 - 5.9 / 3.9 - 5.3 cm IVS Diastolic Thickness 1.2 cm 0.6 - 1.0 / 0.6 - 0.9 cm IVS Systolic Thickness 1.6 cm LVPW Diastolic Thickness 1.2 cm 0.6 - 1.0 / 0.6 - 0.9 cm LVPW Systolic Thickness 1.2 cm LVOT Diameter 2.0 cm LV Ejection Fraction 2D Teich 27.9 % LV Ejection Fraction MOD 4C 31.8 % LV Ejection Fraction MOD 2C 23.4 % LV Ejection Fraction 2C AL 23.6 % LA Diameter 3.1 cm Aorta at Sinotubular Diameter 2.1 cm IVC Diameter 1.6 cm M-MODE LA Ao Ratio MM 1.3 AV Cusp Separation MM 1.8 cm DOPPLER AV Peak Velocity 91.0 cm/s LVOT Peak Velocity 57.0 cm/s AV Area Cont Eq vti 1.8 cm squared AV Area Cont Eq pk 2.0 cm squared MV Peak Velocity 97.0 cm/s MV Area PHT 2.3 cm squared Mitral E to A Ratio 0.8 TR Peak Velocity 345.0 cm/s TR Peak Gradient 47.6 mmHg TV Peak E Velocity 37.0 cm/s PV Peak Velocity 80.0 cm/s FINDINGS Left Ventricle Mild to moderate concentric left-ventricular hypertrophy. Diffuse hypokinesis left ventricular ejection fraction of 30%. Mildly dilated left 200 ventricule Right Ventricle The right ventricle is normal in size and function. Right Atrium The right atrium is normal in size. Left Atrium Mildly increased left atrial size. Mitral Valve Mild-moderate mitral valve regurgitation. Mild mitral annular calcification. Aortic Valve Thickened aortic valve. Tricuspid Valve Mild tricuspid valve regurgitation. Estimated pulmonary artery peak systolic pressure of 56 millimeters of Hg. Pulmonic Valve Pulmonic valve not well visualized. Pericardium Normal pericardium without effusion. Aorta Normal aortic annulus size. IVC Normal IVC dimension with <50% respiratory change of the inferior vena cava. CONCLUSIONS Mild to moderate concentric left-ventricular hypertrophy. Diffuse hypokinesis left ventricular ejection fraction of 30%. Mildly dilated left 200 ventricule. Mildly increased left atrial size. The right ventricle is normal in size and function. Thickened aortic valve. Mild tricuspid valve regurgitation. Estimated pulmonary artery peak systolic pressure of 56 millimeters of Hg. There is no pericardial effusion. There are no intracardiac masses. No similar previous studies are available for comparison Dr Lin Orr MD FAC (Electronically Signed) Final Date: 19 September 2024 21:58 S
--- NOTE | 2024-09-19 16:50 | PM.CONSULT ---
Providers/Reason For Consult Consulting Physician/Specialty*: Hospitalist Reason for Consult*: Left hip fracture Attending Physician: Kyle Guerrero Primary Care Provider: ESTELA Alicia History of Present Illness History of Present Illness Brielle Turpin is a 83 year old female with a history of tobacco dependence, constipation, COPD, chronic kidney disease and hypertension who presents emergency room after having had a fall. She says she fell over a garden hose. She says she landed on her hip and had some pain but was able to stand up. She said she walked to the house but when she went to step up on the stairs she felt something pop and give way and she fell down and ended up having to drag herself into the house. She had no head injuries. Review of Systems Const: Denies: fever(s), change in appetite or change in sleep pattern Eyes: Denies: change in vision ENMT: Denies: odynophagia, hoarseness, mouth pain, oral sores, nasal congestion or post nasal drip Card: Reports: palpitations, dyspnea on exertion and other (Hypertension and hyperlipid); Denies: chest pain or swelling of feet/ankles Resp: Reports: other (COPD); Denies: non-productive cough GI: Reports: constipation; Denies: dysphagia, heartburn, change in bowel habits or hematochezia : Denies: difficulty voiding or hematuria Musc: Reports: extremity pain and joint pain (both knee pain ); Denies: neck pain, back pain or joint stiffness Skin/Breast: Denies: rash, pruritus (Rough on face, arms, torso and legs) or erythema Neuro: Denies: headache(s) (some), difficulty walking or dizziness Psych: Reports: depression and other (obsessive compulsive); Denies: anxiety, panic attacks, irritability or suicidal ideation Endo: Denies: hot flashes Cecilio/Lymph: Denies: easy bruising or enlarged lymph nodes All/Imm: Denies: seasonal rhinorrhea Medications/Allergies Home Medications ?Medication ?Instructions ?Recorded ?Confirmed ?Last Taken ?Type beclomethasone dipropionate 80 1 inh inhalation Q12H #10.6 grams 04/23/24 09/19/24 Unknown Rx mcg/actuation HFA breath activated aerosol (Qvar RediHaler) fenofibrate nanocrystallized 145 145 mg PO DAILY #90 tabs 04/23/24 09/19/24 09/18/24 Rx mg tablet propranolol 60 mg capsule,24 60 mg PO DAILY #90 caps 04/23/24 09/19/24 09/19/24 Rx hr,extended release (Inderal LA) clomipramine 75 mg capsule 75 mg PO DAILY #30 caps 05/29/24 09/19/24 09/18/24 Rx diclofenac sodium 1 % topical gel 2 g topical QID #100 grams 07/24/24 09/19/24 Unknown Rx (Voltaren Arthritis Pain) acetaminophen 325 mg tablet 650 mg PO QID PRN Fever Or Pain 09/19/24 09/19/24 Unknown History (Tylenol) aspirin 81 mg tablet,delayed 81 mg PO DAILY pain 09/19/24 09/19/24 Unknown History release (Lorenzo Low Dose Aspirin) multivitamin with minerals-folic 1 tab PO DAILY 09/19/24 09/19/24 09/18/24 History acid 0.4 mg tablet naproxen sodium 220 mg tablet 220 mg PO Q12H PRN Fever Or Pain 09/19/24 09/19/24 09/19/24 History (Aleve) Allergies Allergy/AdvReac Type Severity Reaction Status Date / Time atorvastatin (From Lipitor) Allergy Unknown Unknown Verified 09/12/24 16:01 azithromycin Allergy Unknown Unknown Verified 09/12/24 16:01 levofloxacin (From Levaquin) Allergy Unknown Unknown Verified 09/12/24 16:01 Penicillins Allergy Unknown Unknown Verified 09/12/24 16:01 phenobarbital Allergy Unknown Unknown Verified 09/12/24 16:01 macrobid AdvReac Severe Heart Uncoded 09/12/24 16:01 races, severe breathing, N & V Current Medications Generic Name Dose Route Start Last Admin Trade Name Freq PRN Reason Stop Dose Admin Morphine Sulfate 2 mg 09/19/24 13:27 09/19/24 14:48 Morphine 4 Mg/Ml Sdv 1 Ml IVP 2 mg Q4H PRN Administration SEVERE PAIN Ondansetron HCl 4 mg 09/19/24 13:27 09/19/24 14:51 Ondansetron 2 Mg/Ml Sdv 2 Ml IVP 4 mg Q4H PRN Administration NAUSEA AND VOMITING PFSH Acute PFSH: Medical History (Updated 09/19/24 @ 16:51 by Ever Vasquez DO) Psychiatric care Cigarette smoker Chronic idiopathic constipation COPD (chronic obstructive pulmonary disease) OA (osteoarthritis) CKD (chronic kidney disease) Environmental and seasonal allergies Essential (primary) hypertension Surgical History History of hysterectomy Family History Other Nicotine dependence Social History Smoking and tobacco/nicotine status: current every day tobacco/nicotine user Second hand smoke exposure: Yes Alcohol intake: never Substance/Drug Use: never Adopted: No Caregiver/support person: No Lives independently: Yes Household members: spouse Housing: House Marital status: service: No Do you think of yourself as: Straight/Heterosexual Current gender identity: Female Vitals/I&O/Wt Last Vital Signs Temp 98.5 F 09/19/24 10:33 Pulse 91 09/19/24 13:00 Resp 16 09/19/24 14:48 BP 140/66 09/19/24 13:00 Pulse Ox 92 09/19/24 13:00 O2 Del Method Room Air 09/19/24 14:26 Weight last 48 hrs Weight 102 lb 2 oz Weight 100 lb Physical Exam Narrative: Alert and oriented x 3 Head is normocephalic atraumatic Respirations are intact No evidence of any rashes or infection Left leg shortened and externally rotated Data 09/19/24 10:41 09/19/24 11:46 A&P Assessment and plan 1. Closed fracture of left hip, initial encounter: Patient has a left femoral neck fracture. At this point my plan is to do a left hip hemiarthroplasty tomorrow. PDMP PDMP Reviewed: Not Reviewed Coding Level of Care Code Acute Code for Chg Fwd Diagnoses Closed fracture of left hip, initial encounter S72.002A Encounter type: initial encounter Fracture type: closed Laterality: left
[2024-09-19 17:33] LABS: Magnesium 1.9 mg/dL (1.7-2.3)
[2024-09-20] VITALS (23 sets, daily range): BP systolic 121–172; BP diastolic 62–106; PULSE 79–115; RESP 15–19; TEMP 36.3–36.9; O2SAT 90–100
[2024-09-20] MEDS: morphine 4 mg/mL SDV 1 mL 2 MG IVP ×2 (01:39→13:11)
[2024-09-20] MEDS: ondansetron 2 mg/ML SDV 2 mL 4 MG IVP (01:41)
[2024-09-20 05:40] LABS: Hematocrit 39.1 % (36-47); Hemoglobin 13.10 g/dL (11.27-16.99); Mean Corpuscular HGB Conc 33.5 g/dL (30-55); Mean Corpuscular Hemoglobin 30.8 pg (27-33); Mean Corpuscular Volume 92.0 fl (85-98); Nucleated Red Blood Cells % 0 %; Platelet Count 222 10^3/cmm (157-399); Red Blood Count 4.25 10^6/uL (3.85-5.65); White Blood Count 10.14 10^3/uL (3.29-11.43)
[2024-09-20 06:01] LABS: Anion Gap 12.6 (5-19); Blood Urea Nitrogen 15 mg/dL (8-23); Calcium 9.1 mg/dL (8.5-10.5); Carbon Dioxide 27 mmol/L (22-29); Chloride 97 mmol/L (98-107); Creatinine Clr Calc Pharmacy 38.8291; Glucose 117 mg/dL (65-115); Osmolality Calculated 278 mOsm/kg (285-295); Potassium 3.6 mmol/L (3.5-5.1); Sodium 133 mmol/L (136-145)
--- NOTE | 2024-09-20 07:20 | ANES.PREANE2 ---
Pre-Anesthetic Assessment Height/Weight: Height 5 ft 2 in Weight 98 lb Temp Pulse Resp BP Pulse Ox O2 Del Method O2 Flow Rate 97.7 F 79 17 136/62 92 Nasal Cannula 2 09/20/24 04:00 09/20/24 04:00 09/20/24 04:00 09/20/24 04:00 09/20/24 04:00 09/20/24 04:00 09/20/24 04:00 Preop Diagnosis: Hip fracture Operation Date: 09/20/24 09:10 Proposed Procedures p Left hip hemiarthroplasty(Left) - Ever Vasquez, DO Was Beta Giancarlo taken within 24 hours: Yes Was Clonidine taken within 24 hours: N/A Social Tobacco and No alcohol Exam alert, oriented x 3 and regular rate & rhythm Airway Submandibular: within normal limits Cervical ROM: within normal limits Mallampati: Class III Dentition: full Anesthetic Plan ASA status: 4 Anesthesia: General Other: Patient admitted yesterday for left hip fracture No prior issues with anesthesia History of COPD, active tobacco user Hypertension on propranolol Patient has lupus, not on chronic steroids EKG showing sinus rhythm with T wave flattening Echo performed yesterday showing diffuse hypokinesis with a EF of 30%. Pulmonary hypertension with PA pressure of 56 labs reviewed and acceptable for surgery, type and screen performed Plan for general anesthesia with A line Medications/Allergies Home Medications ?Medication ?Instructions ?Recorded ?Confirmed ?Last Taken ?Type beclomethasone dipropionate 80 1 inh inhalation Q12H #10.6 grams 04/23/24 09/19/24 Unknown Rx mcg/actuation HFA breath activated aerosol (Qvar RediHaler) fenofibrate nanocrystallized 145 145 mg PO DAILY #90 tabs 04/23/24 09/19/24 09/18/24 Rx mg tablet propranolol 60 mg capsule,24 60 mg PO DAILY #90 caps 04/23/24 09/19/24 09/19/24 Rx hr,extended release (Inderal LA) clomipramine 75 mg capsule 75 mg PO DAILY #30 caps 05/29/24 09/19/24 09/18/24 Rx diclofenac sodium 1 % topical gel 2 g topical QID #100 grams 07/24/24 09/19/24 Unknown Rx (Voltaren Arthritis Pain) acetaminophen 325 mg tablet 650 mg PO QID PRN Fever Or Pain 09/19/24 09/19/24 Unknown History (Tylenol) aspirin 81 mg tablet,delayed 81 mg PO DAILY pain 09/19/24 09/19/24 Unknown History release (Lorenzo Low Dose Aspirin) multivitamin with minerals-folic 1 tab PO DAILY 09/19/24 09/19/24 09/18/24 History acid 0.4 mg tablet naproxen sodium 220 mg tablet 220 mg PO Q12H PRN Fever Or Pain 09/19/24 09/19/24 09/19/24 History (Aleve) Allergies Allergy/AdvReac Type Severity Reaction Status Date / Time atorvastatin (From Lipitor) Allergy Unknown Unknown Verified 09/12/24 16:01 azithromycin Allergy Unknown Unknown Verified 09/12/24 16:01 levofloxacin (From Levaquin) Allergy Unknown Unknown Verified 09/12/24 16:01 Penicillins Allergy Unknown Unknown Verified 09/12/24 16:01 phenobarbital Allergy Unknown Unknown Verified 09/12/24 16:01 macrobid AdvReac Severe Heart Uncoded 09/12/24 16:01 races, severe breathing, N & V Current Medications Generic Name Dose Route Start Last Admin Trade Name Freq PRN Reason Stop Dose Admin Enoxaparin Sodium 40 mg 09/19/24 16:30 09/19/24 16:56 Enoxaparin 40 Mg/0.4 Ml Syringe SUBCUT 40 mg Q24H LAUREN Administration Lactated Ringer's 1,000 mls @ 30 mls/hr 09/19/24 16:30 09/19/24 16:57 Lactated Ringers IV 30 mls/hr .Q24H LAUERN Administration Morphine Sulfate 2 mg 09/19/24 13:27 09/20/24 01:39 Morphine 4 Mg/Ml Sdv 1 Ml IVP 2 mg Q4H PRN Administration SEVERE PAIN Nicotine 1 patch 09/19/24 16:55 09/19/24 17:29 Nicotine 21 Mg Patch TRANSDERMA 1 patch DAILY LAUREN Administration Ondansetron HCl 4 mg 09/19/24 13:27 09/20/24 01:41 Ondansetron 2 Mg/Ml Sdv 2 Ml IVP 4 mg Q4H PRN Administration NAUSEA AND VOMITING PFSH Anesthesia Medical History (Updated 09/19/24 @ 16:51 by Ever Vasquez DO) Psychiatric care Cigarette smoker Chronic idiopathic constipation COPD (chronic obstructive pulmonary disease) OA (osteoarthritis) CKD (chronic kidney disease) Environmental and seasonal allergies Essential (primary) hypertension Surgical History History of hysterectomy Family History Other Nicotine dependence Social History Smoking and tobacco/nicotine status: current every day tobacco/nicotine user Second hand smoke exposure: Yes Alcohol intake: never Substance/Drug Use: never Adopted: No Caregiver/support person: No Lives independently: Yes Household members: spouse Housing: House Marital status: service: No Do you think of yourself as: Straight/Heterosexual Current gender identity: Female Data Anesthesia 09/20/24 05:06 09/20/24 05:06 Short CBC 09/19/24 09/20/24 Range/Units 10:41 05:06 WBC 8.36 10.14 (3.29-11.43) 10^3/uL Hgb 12.60 13.10 (11.27-16.99) g/dL Hct 38.4 39.1 (36-47) % MCV 93.2 92.0 (85-98) fl Plt Count 234 222 (157-399) 10^3/cmm Neut % (Auto) 83.5 84.5 % Neut # (Auto) 6.98 8.57 H (1.8-7.7) 10^3/uL BMP 09/19/24 09/19/24 09/20/24 10:41 11:46 05:06 Sodium Cancelled 137 133 L Potassium Cancelled 3.7 3.6 Chloride Cancelled 101 97 L Carbon Dioxide Cancelled 25 27 BUN Cancelled 18 15 Creatinine Cancelled 0.7 0.7 Glucose Cancelled 90 117 H Calcium Cancelled 9.4 9.1 Liver Function 09/19/24 09/19/24 Range/Units 10:41 11:46 Total Bilirubin Cancelled 0.5 AST Cancelled 26 ALT Cancelled 21 Alkaline Phosphatase Cancelled 73 Albumin Cancelled 4.0 Urine 09/19/24 Range/Units 11:55 Urine Color Yellow (Yellow) Urine Appearance Clear (CLEAR) Urine pH 8.0 A (5-7) Ur Specific Lotus 1.012 (1.005-1.030) Urine Protein Negative (Negative) Urine Glucose (UA) Negative (Normal) Urine Ketones Negative (Negative) Urine Nitrate Negative (Negative) Urine Bilirubin Negative (Negative) Ur Leukocyte Esterase Negative (Negative) Urine RBC 0-2 (0-2) /hpf Urine WBC 0-5 (0-5) /hpf Coags 09/19/24 10:41 PT 12.90 INR 0.90 APTT 29.2 Cardiac Studies: Echocardiogram 09/19/24 Holter Monitor 11/13/23
--- NOTE | 2024-09-20 07:43 | W.PM.OPSUD ---
Surgery/Procedure H&P Update DATE OF PROCEDURE: September 20, 2024 DATE H&P PERFORMED: 09/19/24 H&P UPDATE INFORMATION: I have reviewed H&P completed within last 30 days, I have examined patient prior to procedure and No changes to prior documentation PLANNED PROCEDURE: Operation Date: 09/20/24 09:10 Proposed Procedures p Left hip hemiarthroplasty(Left) - Ever Vasquez DO
--- NOTE | 2024-09-20 09:17 | XR_ITS ---
WS: [id number] XR knee RT 1-2V [id number] REASON FOR EXAM: Pain in right knee FINDINGS: Joint effusion. There is significant narrowing (near [id number] posteriorly) of the medial knee joint space with irregular contour of the articular medial femoral condyle and tibial plateau with significant subchondral sclerosis and osteophytosis. Deformity of the medial tibial plateau could be due to previous old healed tibial plateau fracture no acute abnormality identified. Mild narrowing of the lateral knee joint space with mild subchondral sclerosis. Mild narrowing of the patellofemoral joint space with mild to moderate subchondral sclerosis and osteophytosis. Moderate opposing osteophytosis of the femoral condyles. XR/XR knee RT 1-2V [id number] IMPRESSION: Significant osteoarthritis as above. No acute abnormality identified.
--- NOTE | 2024-09-20 09:17 | XR_ITS ---
WS: [id number] XR pelvis 1-2V* [id number] REASON FOR EXAM: POST OP LT HEMIARTHROPLASTY; LOW AP PELVIS PER DR. MORE FINDINGS: Total left hip arthroplasty. Components of the arthroplasty are intact and in proper position and alignment. No focal bony abnormality. XR/XR pelvis 1-2V* [id number] IMPRESSION: Total left hip arthroplasty without abnormality.
--- NOTE | 2024-09-20 09:21 | PM.OP ---
Operative Report Date of procedure: September 20, 2024 Pre-op diagnosis: Left femoral neck fracture Post-op diagnosis: same Procedure done: Left hip hemiarthroplasty Surgeon: Ever Vasquez DO Estimated blood loss (mL): 25 Procedure: Left hip hemiarthroplasty Patient is brought to the operative suite after undergoing anesthesia was placed in the lateral decubitus position. All areas of impingement were well-padded. Patient's prepped and draped normal sterile fashion. Skin incision was made over the left lateral hip. IT band split. Modified Wallace approach was used. The abductors and capsule were taken anteriorly. The femoral neck fracture was identified saw was used to cut the femoral neck approximately 1 fingerbreadth above the lesser trochanter. The head was then removed and was measured to be 45 mm. Next tension was brought to the femur. The box sealing inspector was used followed by the canal finder followed by the lateralizer. Canal was broached to 4. Quin[place] Accolade stem was inserted. A 45 mm head with a -4 neck length was inserted onto this Alves taper and plane position. Hip was reduced once hip was reduced was felt to be stable in all positions. The capsule and abductors were repaired anteriorly. And then the IT band was closed with 0 Vicryl skin closed with 2-0 Vicryl and lucio. Sterile dressings were applied and patient is transferred to the PACU in stable condition.
--- NOTE | 2024-09-20 09:23 | PC.OT ---
Hold OT evaluation today due to patient having surgery; will attempt again another time.
[2024-09-20] MEDS: metoprolol tartrate 1 mg/1 mL SDV 5 mL 2.5 MG IVP (09:52)
--- NOTE | 2024-09-20 09:56 | ANE.PACU2 ---
Inpatient post-anesthesia follow up: Airway intact: Yes Vital signs: Temperature 97.9 F Pulse Rate 90 Respiratory Rate 16 Blood Pressure 138/74 Pulse Oximetry 91 Oxygen Delivery Me thod Nasal Cannula Oxygen Flow Rate 2 Fraction of Inspir ed Oxygen Hydration adequate: Yes Nausea and vomiting: No Pain level: 1 Mental status: Baseline
--- NOTE | 2024-09-20 09:56 | PC.NURSE ---
Art line removed at 0940. Pressure held 5 minutes.
--- NOTE | 2024-09-20 13:48 | PC.SOCIAL ---
IMM Update pg 2 of IMM updated and reviewed w/ patient and copy provided and copy dated, initialed and placed in chart.
--- NOTE | 2024-09-20 15:31 | P.PN_ITS ---
Subjective 2 Subjective: Seen postoperatively, she does not know yet exactly how she is doing, but denies any complaints at this time. So far recovering well. Vitals/I&O/Wt Last Vital Signs Temp 98.0 F 09/20/24 13:15 Pulse 83 09/20/24 13:15 Resp 16 09/20/24 13:15 BP 128/63 09/20/24 13:15 Pulse Ox 94 09/20/24 13:15 O2 Del Method Nasal Cannula 09/20/24 13:15 O2 Flow Rate 2 09/20/24 09:56 09/20/24 09/20/24 09/20/24 06:59 14:59 22:59 Intake Total 50 / 50 Output Total Balance Weight last 48 hrs Weight 44.452 kg Weight 46.323 kg Weight 45.359 kg Physical Exam 2 Narrative: Accompanied by her daughter. Const: COMMON NORMALS: patient oriented x3 and alert GENERAL APPEARANCE: c ooperative ORIENTATION/CONSCIOUSNESS: Yes awake HENMT: COMMON NORMALS: oropharynx normal Neck/C-Spine: COMMON NORMALS: no JVD Resp: COMMON NORMALS: normal respiratory effort and clear to auscultation bilaterally AUSCULTATION: clear to auscultation bilaterally Cardio: COMMON NORMALS: no JVD, regular rhythm, S1 normal heart sound present, S2 normal heart sound present and No murmurs present (Cardio) RHYTHM: regular rhythm HEART SOUNDS: S1 normal heart sound present and S2 normal heart sound present GI: COMMON NORMALS: Normal to inspection, nondistended, normoactive bowel sounds present, Soft to palpation and non-tender PALPATION: Yes Soft to palpation Extremity: COMMON NORMALS: no joint enlargement and no pedal edema OTHER: Mild to moderate moderate joint fusion of the right knee Neuro: COMMON NORMALS: patient oriented x3 and moves all extremities S ENSORIUM/ORIENTATION: Yes alert Skin: COMMON NORMALS: no rashes or lesions noted GENERAL SKIN EXAM: no rashes or lesions noted Urinary Catheter Management: Martin: Cath Placed During This Visit: yes Reason for Continuing Indwelling Catheter: Required Immobilization for Trauma or Surgery or Anesthesia Urinary Catheter Date of Insertion: 09/19/24 Urinary Catheter Time of Insertion: 21:21 Data 09/20/24 05:06 09/20/24 05:06 A&P Assessment and plan 1. Closed fracture of left hip, initial encounter: Doing well postoperatively. This morning discussed with anesthesia findings of cardiomyopathy low ejection fraction on echocardiogram, concentric LVH, with noted mild to moderate MVR, Reviewed vitals, CBC, BMP, surgery note, anesthesia note, echocardiogram. Continue postoperative care. Requested incentive spirometer. Lovenox for VTE prophylaxis. PT evaluation, consideration of discharge disposition. Tentatively plan for return home. Repeat blood counts with risk of acute blood loss anemia. Recent diagnosis of lupus, however, reports symptoms only on the skin. Had not been requiring corticosteroids or any other immunosuppressants. Acetaminophen as needed for milder pain. IV morphine requested for severe breakthrough pain which she has required. Hydrocodone as needed for moderate pain. DC IV fluid, monitor for risk of acute CHF. Discussed with Ortho surgery, case management, nursing. 2. Cardiomyopathy: After accidental murmur noted on exam yesterday mild to moderate mitral regurgitation noted on review of echocardiogram, incidentally noted cardiomyopathy ejection fraction 30% with diffuse hypokinesis of left ventricle, mild to moderate concentric LVH, without signs of CHF exacerbation, discussed early this morning with anesthesia. Underwent uneventful procedure. No signs of CHF postprocedure. Discussed caution with patient and daughter with risk of CHF. Will benefit from follow-up with cardiology after discharge. DC IV fluid. Resume home propranolol. Would discontinue and avoid NSAIDs. Consider Lasix as needed. If blood pressure holding consider Entresto. Plan: Right knee pain with effusion : Discussed with Ortho, obtaining knee x- ray. Will be following up outpatient. Three-week history of right-knee pain and intermittent swelling after knee gave out; mild effusion noted on exam, concern for degenerative arthritis. - Discussed with orthopedics today with plan to obtain x-ray of the right knee after the surgery. Otherwise without erythema diffuse swelling, she does have some effusion, no signs of infection. Chronic obstructive pulmonary disease : Long-standing COPD; active smoker increases perioperative pulmonary risk. Chronic kidney disease : Known CKD; baseline labs within normal limits. Hypertension : History of hypertension; current blood pressure 140/66 mmHg. Osteoarthritis : Generalized osteoarthritis contributing to right-knee symptoms. Systemic lupus erythematosus : Recent diagnosis; currently managed with topical agents for pruritus. Maintain VTE prophylaxis. Resume her home ointments once available. Requested to confirm home medications. Irritable bowel syndrome : Chronic gastrointestinal condition causing intermittent ?goosy stomach.? Nicotine dependence : Further encouraged cessation. Consider nicotine replacement at discharge. Follow-up with primary provider for consideration of other options. She is aware of complications with smoking discussed risks. Encouraged cessation. She is agreeable to nicotine replacement in the hospital. Requested. Current ous-snmc-hlu-day smoker; cessation encouraged to improve lung and cardiovascular health and reduce surgical risk. - Initiate nicotine patch therapy with additional lozenges as needed for cravings. Systolic heart murmur : Today without murmur noted. Follow-up : Postoperative and rehabilitative course to be determined based on recovery. PDMP PDMP Reviewed: Not Reviewed Attestations 2 Medical Necessity Statement*: Continue postoperative care after left hip fracture and repair LAD with finding of cardiomyopathy with low ejection fraction, underlying COPD, current smoking, CKD, additional comorbidities as above. and High MDM includes amount and/or complexity of data reviewed/ordered [ resulted lab(s)/test(s), ordered lab(s)/test(s) and other healthcare professional discussion] and described risk of complication, morbidity or mortality of management as documented Diagnoses Closed fracture of left hip, initial encounter S72.002A Encounter type: initial encounter Fracture type: closed Laterality: left Cardiomyopathy I42.9
[2024-09-20] MEDS: HYDROcodone-acetaminophen 5-325 mg Tablet 1 TAB PO (16:50)
[2024-09-21 00:58] VITALS: RESP 16
[2024-09-21] MEDS: morphine 4 mg/mL SDV 1 mL 2 MG IVP (00:58)
[2024-09-21 03:59] VITALS: BP 130/62; PULSE 98; RESP 16; TEMP 36.9; O2SAT 97
[2024-09-21 04:02] LABS: Hematocrit 32.4 % (36-47); Hemoglobin 10.80 g/dL (11.27-16.99); Mean Corpuscular HGB Conc 33.3 g/dL (30-55); Mean Corpuscular Hemoglobin 30.6 pg (27-33); Mean Corpuscular Volume 91.8 fl (85-98); Nucleated Red Blood Cells % 0 %; Platelet Count 171 10^3/cmm (157-399); Red Blood Count 3.53 10^6/uL (3.85-5.65); White Blood Count 7.79 10^3/uL (3.29-11.43)
[2024-09-21 04:26] LABS: Anion Gap 11.9 (5-19); Blood Urea Nitrogen 21 mg/dL (8-23); Calcium 8.7 mg/dL (8.5-10.5); Carbon Dioxide 26 mmol/L (22-29); Chloride 101 mmol/L (98-107); Creatinine Clr Calc Pharmacy 39.7420; Glucose 113 mg/dL (65-115); Osmolality Calculated 284 mOsm/kg (285-295); Potassium 3.9 mmol/L (3.5-5.1); Sodium 135 mmol/L (136-145)
[2024-09-21 07:39] VITALS: BP 147/74; PULSE 111; RESP 17; TEMP 37.3; O2SAT 98
[2024-09-21 09:17] LABS: Estmated Average Glucose 103; Hemoglobin A1C 5.2 % (4.0-6.0)
[2024-09-21 09:35] LABS: Iron 20 ug/dL (37-145); Thyroid Stimulating Hormone 0.71 uIU/mL (0.27-4.20); Total Iron Binding Capacity 282 mcg/dl; Unsaturated Iron Binding 262 ug/dL (112-347); Vitamin B12 422 pg/mL (232-1245)
[2024-09-21] MEDS: metoprolol succinate ER (24 HR) 25 mg Tablet 12.5 MG PO (10:33)
[2024-09-21 11:21] VITALS: BP 117/68; PULSE 108; RESP 17; TEMP 36.8; O2SAT 90
[2024-09-21] MEDS: HYDROcodone-acetaminophen 5-325 mg Tablet 1 TAB PO ×3 (11:31→21:49)
--- NOTE | 2024-09-21 12:16 | P.PN_ITS ---
Subjective 2 Subjective: Patient is doing well sitting up in bed eating lunch. Patient was ambulating yesterday postoperatively and sat in the chair for a while. Vitals/I&O/Wt Last Vital Signs Temp 98.2 F 09/21/24 11:21 Pulse 108 H 09/21/24 11:21 Resp 17 09/21/24 11:21 BP 117/68 09/21/24 11:21 Pulse Ox 90 09/21/24 11:21 O2 Del Method Room Air 09/21/24 11:21 O2 Flow Rate 2 09/20/24 09:56 09/20/24 09/21/24 09/21/24 22:59 06:59 14:59 Intake Total 1050 / 1100 530 / 1630 50 / 50 Output Total 850 / 875 Balance 1050 / 1075 -320 / 755 50 / 50 Weight last 48 hrs Weight 104 lb 3.2 oz Weight 98 lb Weight 102 lb 2 oz Physical Exam 2 Narrative: Dressings clean dry and intact Urinary Catheter Management: Martin: Cath Placed During This Visit: yes Reason for Continuing Indwelling Catheter: Perioperative Use in Selected Surgeries Urinary Catheter Date of Insertion: 09/19/24 Urinary Catheter Time of Insertion: 21:21 Data 09/21/24 03:36 09/21/24 03:36 A&P Assessment and plan 1. Closed fracture of left hip, initial encounter: Postop day 1 left hip hemiarthroplasty Up with physical therapy PDMP PDMP Reviewed: Not Reviewed Attestations 2 Medical Necessity Statement*: Per primary service Coding Level of Care Code Acute Code for [facility] Fwd Diagnoses Closed fracture of left hip, initial encounter S72.002A Encounter type: initial encounter Fracture type: closed Laterality: left
--- NOTE | 2024-09-21 12:35 | P.PN_ITS ---
Subjective 2 Subjective: Hospital course, labs appreciated. Seen with family at bedside. Patient denies any nausea, vomiting, headache. Vitals/I&O/Wt Last Vital Signs Temp 98.2 F 09/21/24 11:21 Pulse 108 H 09/21/24 11:21 Resp 17 09/21/24 11:21 BP 117/68 09/21/24 11:21 Pulse Ox 90 09/21/24 11:21 O2 Del Method Room Air 09/21/24 11:21 O2 Flow Rate 2 09/20/24 09:56 09/20/24 09/21/24 09/21/24 22:59 06:59 14:59 Intake Total 1050 / 1100 530 / 1630 50 / 50 Output Total 850 / 875 Balance 1050 / 1075 -320 / 755 50 / 50 Weight last 48 hrs Weight 47.264 kg Weight 44.452 kg Weight 46.323 kg Physical Exam 2 Narrative: Accompanied by her daughter. Const: COMMON NORMALS: patient oriented x3 and alert GENERAL APPEARANCE: c ooperative ORIENTATION/CONSCIOUSNESS: Yes awake HENMT: COMMON NORMALS: oropharynx normal Neck/C-Spine: COMMON NORMALS: no JVD Resp: COMMON NORMALS: normal respiratory effort and clear to auscultation bilaterally AUSCULTATION: clear to auscultation bilaterally Cardio: COMMON NORMALS: no JVD, regular rhythm, S1 normal heart sound present, S2 normal heart sound present and No murmurs present (Cardio) RHYTHM: regular rhythm HEART SOUNDS: S1 normal heart sound present and S2 normal heart sound present OTHER: 2/4 aortic murmur GI: COMMON NORMALS: Normal to inspection, nondistended, normoactive bowel sounds present, Soft to palpation and non-tender PALPATION: Yes Soft to palpation Extremity: COMMON NORMALS: no joint enlargement and no pedal edema OTHER: Mild to moderate moderate joint fusion of the right knee Neuro: COMMON NORMALS: patient oriented x3 and moves all extremities S ENSORIUM/ORIENTATION: Yes alert Skin: COMMON NORMALS: no rashes or lesions noted GENERAL SKIN EXAM: no rashes or lesions noted Urinary Catheter Management: Martin: Cath Placed During This Visit: yes Reason for Continuing Indwelling Catheter: Perioperative Use in Selected Surgeries Urinary Catheter Date of Insertion: 09/19/24 Urinary Catheter Time of Insertion: 21:21 Data 09/21/24 03:36 09/21/24 03:36 A&P Assessment and plan 1. Closed fracture of left hip, initial encounter: Post-ORIF. Continue physical therapy. Anticoagulation with Lovenox. [place] every 4 hours as needed for pain control. DC Martin catheter. Monitor hemoglobin. 2. Cardiomyopathy: New finding. Echocardiogram showed EF of 30% with diffuse hypokinesis of left ventricle, mild to moderate concentric LVH, PASP of 56 mmHg. Will start patient on guideline directed medical therapy. Start on Entresto 0.5 mg twice daily, metoprolol succinate 12.5 mg daily. Will plan for further ACS workup with cardiac stress test. Will consult cardiology for possible need of life vest. Currently euvolemic. Check A1c, lipid panel. 3. Essential (primary) hypertension: 4. COPD (chronic obstructive pulmonary disease): Plan: Right knee pain with effusion : Discussed with Ortho, obtaining knee x- ray. Will be following up outpatient. Three-week history of right-knee pain and intermittent swelling after knee gave out; mild effusion noted on exam, concern for degenerative arthritis. - Discussed with orthopedics today with plan to obtain x-ray of the right knee after the surgery. Otherwise without erythema diffuse swelling, she does have some effusion, no signs of infection. Chronic obstructive pulmonary disease : Long-standing COPD; active smoker increases perioperative pulmonary risk. Chronic kidney disease : Known CKD; baseline labs within normal limits. Hypertension : History of hypertension; current blood pressure 140/66 mmHg. Osteoarthritis : Generalized osteoarthritis contributing to right-knee symptoms. Systemic lupus erythematosus : Recent diagnosis; currently managed with topical agents for pruritus. Maintain VTE prophylaxis. Resume her home ointments once available. Requested to confirm home medications. Irritable bowel syndrome : Chronic gastrointestinal condition causing intermittent ?goosy stomach.? Nicotine dependence : Further encouraged cessation. Consider nicotine replacement at discharge. Follow-up with primary provider for consideration of other options. She is aware of complications with smoking discussed risks. Encouraged cessation. She is agreeable to nicotine replacement in the hospital. Requested. Current dcs-eeaa-lyy-day smoker; cessation encouraged to improve lung and cardiovascular health and reduce surgical risk. - Initiate nicotine patch therapy with additional lozenges as needed for cravings. Full code Cardiac diet. Lovenox for DVT prophylaxis Famotidine for PUD prophylaxis PDMP PDMP Reviewed: Not Reviewed Attestations 2 Medical Necessity Statement*: Requires further hospitalization for management of postarrest care for hip fracture, new onset CHF Diagnoses Closed fracture of left hip, initial encounter S72.002A Encounter type: initial encounter Fracture type: closed Laterality: left Cardiomyopathy I42.9 Essential (primary) hypertension I10 COPD (chronic obstructive pulmonary disease) J44.9
--- NOTE | 2024-09-21 15:14 | PM.CONSULT ---
Providers/Reason For Consult Consulting Physician/Specialty*: Yevgeniy Grewal MD Reason for Consult*: New onset of heart failure with severely depressed LV function 30% Severe pulmonary hypertension Requesting Physician: Dr. Tang Attending Physician: Tony Reveles MD Primary Care Provider: WILMAR AliciaP-C History of Present Illness History of Present Illness Brielle Turpin is a 83 year old female presented with left hip closed fracture status post ORIF noted to have severely depressed left ventricle ejection fraction on echocardiogram which is new however she appeared to be in compensated state of heart failure. Patient denies any prior history of coronary artery disease ischemic cardiomyopathy or heart failure. She has been a regular smoker with COPD. She was also noted to have moderate to severe pulmonary hypertension on the echocardiogram. Patient denies chest pain PND and orthopnea. Review of Systems Narrative: Constitutional symptoms: Negative except as documented in HPI. Skin symptoms: Negative except as documented in HPI. Eye symptoms: Negative except as documented in HPI. ENMT symptoms: Negative except as documented in HPI. Respiratory symptoms: Negative except as documented in HPI. Cardiovascular symptoms: Negative except as documented in HPI. Gastrointestinal symptoms: Negative except as documented in HPI. Genitourinary symptoms: Negative except as documented in HPI. Musculoskeletal symptoms: Negative except as documented in HPI. Neurologic symptoms: Negative except as documented in HPI. Psychiatric symptoms: Negative except as documented in HPI. Endocrine symptoms: Negative except as documented in HPI. Const: Denies: fever(s), chills, body aches, change in appetite, malaise or change in sleep pattern Eyes: Denies: change in vision ENMT: Denies: throat pain, odynophagia, hoarseness, mouth pain, oral sores, nasal congestion or post nasal drip Card: Reports: palpitations and other (Hypertension and hyperlipid); Denies: chest pain, edema, swelling of feet/ankles, pre-syncope or dyspnea on exertion Resp: Reports: other (COPD); Denies: dyspnea, productive cough, non-productive cough, change in phlegm color or hemoptysis GI: Denies: abdominal pain, nausea, vomiting, dysphagia, heartburn, diarrhea, constipation, change in bowel habits, hematochezia or melena : Denies: flank pain, difficulty voiding, urinary frequency or hematuria Musc: Reports: extremity pain and joint pain (both knee pain ); Denies: neck pain, back pain, joint swelling, joint redness, joint warmth or joint stiffness Skin/Breast: Denies: rash, pruritus (Rough on face, arms, torso and legs), erythema or new lesions Neuro: Denies: headache(s), difficulty walking, dizziness or confusion Psych: Reports: depression and other (obsessive compulsive); Denies: anxiety, panic attacks, irritability or suicidal ideation Endo: Denies: hot flashes Cecilio/Lymph: Denies: easy bruising or enlarged lymph nodes All/Imm: Denies: seasonal rhinorrhea Medications/Allergies Home Medications ?Medication ?Instructions ?Recorded ?Confirmed ?Last Taken ?Type beclomethasone dipropionate 80 1 inh inhalation Q12H #10.6 grams 04/23/24 09/19/24 Unknown Rx mcg/actuation HFA breath activated aerosol (Qvar RediHaler) fenofibrate nanocrystallized 145 145 mg PO DAILY #90 tabs 04/23/24 09/19/24 09/18/24 Rx mg tablet propranolol 60 mg capsule,24 60 mg PO DAILY #90 caps 04/23/24 09/19/24 09/19/24 Rx hr,extended release (Inderal LA) clomipramine 75 mg capsule 75 mg PO DAILY #30 caps 05/29/24 09/19/24 09/18/24 Rx diclofenac sodium 1 % topical gel 2 g topical QID #100 grams 07/24/24 09/19/24 Unknown Rx (Voltaren Arthritis Pain) acetaminophen 325 mg tablet 650 mg PO QID PRN Fever Or Pain 09/19/24 09/19/24 Unknown History (Tylenol) aspirin 81 mg tablet,delayed 81 mg PO DAILY pain 09/19/24 09/19/24 Unknown History release (Lorenzo Low Dose Aspirin) multivitamin with minerals-folic 1 tab PO DAILY 09/19/24 09/19/24 09/18/24 History acid 0.4 mg tablet naproxen sodium 220 mg tablet 220 mg PO Q12H PRN Fever Or Pain 09/19/24 09/19/24 09/19/24 History (Aleve) Allergies Allergy/AdvReac Type Severity Reaction Status Date / Time atorvastatin (From Lipitor) Allergy Unknown Unknown Verified 09/12/24 16:01 azithromycin Allergy Unknown Unknown Verified 09/12/24 16:01 levofloxacin (From Levaquin) Allergy Unknown Unknown Verified 09/12/24 16:01 Penicillins Allergy Unknown Unknown Verified 09/12/24 16:01 phenobarbital Allergy Unknown Unknown Verified 09/12/24 16:01 macrobid AdvReac Severe Heart Uncoded 09/12/24 16:01 races, severe breathing, N & V Current Medications Generic Name Dose Route Start Last Admin Trade Name Freq PRN Reason Stop Dose Admin Acetaminophen 650 mg 09/19/24 16:20 09/21/24 08:21 Acetaminophen 325 Mg Tablet PO 650 mg Q6H PRN Administration Mild/Mod Pain Or Temp >/= 101 Hydrocodone Bitart/Acetaminophen 1 tab 09/20/24 15:52 09/21/24 11:31 Hydrocodone-Acetaminophen 5-325 Mg Tablet PO 1 tab Q4H PRN Administration MODERATE PAIN Aspirin 81 mg 09/21/24 09:00 09/21/24 08:21 Aspirin 81 Mg Ec Tablet PO 81 mg DAILY LAUREN Administration Enoxaparin Sodium 40 mg 09/19/24 16:30 09/20/24 16:49 Enoxaparin 40 Mg/0.4 Ml Syringe SUBCUT 40 mg Q24H LAUREN Administration Fenofibrate 145 mg 09/21/24 09:00 09/21/24 08:21 Fenofibrate 145 Mg Tablet PO 145 mg DAILY LAUREN Administration Metoprolol Succinate 12.5 mg 09/21/24 09:00 09/21/24 10:33 Metoprolol Succinate Er (24 Hr) 25 Mg Tablet PO 12.5 mg DAILY LAUREN Administration Morphine Sulfate 2 mg 09/19/24 13:27 09/21/24 00:58 Morphine 4 Mg/Ml Sdv 1 Ml IVP 2 mg Q4H PRN Administration SEVERE PAIN Nicotine 1 patch 09/19/24 16:55 09/21/24 08:21 Nicotine 21 Mg Patch TRANSDERMA 1 patch DAILY LAUREN Administration Sacubitril/Valsartan 0.5 each 09/21/24 09:00 09/21/24 10:33 Sacubitril/Valsartan 24-26 Mg Tablet PO 0.5 each BID LAUREN Administration PFSH Acute PFSH: Medical History (Updated 09/21/24 @ 20:20 by Yevgeniy Grewal MD) Psychiatric care Cigarette smoker Chronic idiopathic constipation COPD (chronic obstructive pulmonary disease) OA (osteoarthritis) CKD (chronic kidney disease) Environmental and seasonal allergies Essential (primary) hypertension Surgical History History of hysterectomy Family History Other Nicotine dependence Social History Smoking and tobacco/nicotine status: current every day tobacco/nicotine user Second hand smoke exposure: Yes Alcohol intake: never Substance/Drug Use: never Adopted: No Caregiver/support person: No Lives independently: Yes Household members: spouse Housing: House Marital status: service: No Do you think of yourself as: Straight/Heterosexual Current gender identity: Female Dietary Habits: Current diet type/program: regular Caffeine: Yes Safety: Seatbelt use: always Helmet use: No Drive intoxicated or ride with intoxicated 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 HEART: Regular S1 and S2. No murmur, rub or gallop. LUNGS: Clear to auscultate bilaterally. CENTRAL NERVOUS SYSTEM: Grossly nonfocal. EXTREMITIES: Lower extremities with out edema bilaterally. Urinary Catheter Management: Martin: Cath Placed During This Visit: yes Reason for Continuing Indwelling Catheter: Perioperative Use in Selected Surgeries Urinary Catheter Date of Insertion: 09/19/24 Urinary Catheter Time of Insertion: 21:21 Data 09/21/24 03:36 09/21/24 03:36 A&P Assessment and plan 1. Cardiomyopathy: 2. LV dysfunction: 3. COPD (chronic obstructive pulmonary disease): 4. Pulmonary hypertension: Plan: New onset of heart failure may need to be differentiated between ischemic versus nonischemic cannot rule out stress-induced cardiomyopathy in this time of stress of surgery and fracture, we therefore agree with our medicine colleague for stress test before discharge Lexiscan MIBI Patient appeared to be in well compensated state of heart failure agree with starting patient on Entresto Continue beta-nadeen Patient will benefit with oxygen for pulmonary hypertension if she agrees which is secondary to COPD and partly due to heart failure could be a mixed picture of pre and postcapillary. PDMP PDMP Reviewed: Not Reviewed Consult Attestations Medical Necessity Statement: Patient require continued hospitalization for above defined care. Coding Level of Care Code Acute Code for [facility] Diagnoses Cardiomyopathy I42.9 LV dysfunction I51.9 COPD (chronic obstructive pulmonary disease) J44.9 Pulmonary hypertension I27.20
[2024-09-21 15:42] VITALS: BP 135/71; PULSE 95; RESP 17; TEMP 36.8; O2SAT 90
[2024-09-21 20:00] VITALS: BP 138/70; PULSE 97; RESP 18; TEMP 36.3; O2SAT 95
--- NOTE | 2024-09-21 20:53 | PC.NURSE ---
I was rounding with nursing staff when Alex Rodríguez RN had stated that patient's [id number] had a complaint regarding patient not receiving her tray at dinner. Upon review, patient's [id number]-[id number] was not listed as a contact on patient's PHI. Patient gave verbal consent to speak with Fabiola Turpin regarding her care. Her cell is . I called and spoke with Fabiola and addressed her concerns, including patient not being informed of getting her pain medications timely, not receiving a tray at dinner, and also feeling like staff didn't address the issue with getting a tray quickly. Arnav is aware of the issues with pain control and states that he and patient have developed a plan to address her pain, including setting an alarm on her phone as a reminder. I asked that if there were any issues moving forward with her trays, to please inform nursing and provided the dye house supervisor number. She verbalized appreciation for the call.
[2024-09-22] VITALS (7 sets, daily range): BP systolic 123–165; BP diastolic 65–86; PULSE 74–110; RESP 16–19; TEMP 36.4–36.9; O2SAT 90–96
[2024-09-22 04:22] LABS: Hematocrit 33.9 % (36-47); Hemoglobin 11.20 g/dL (11.27-16.99); Mean Corpuscular HGB Conc 33.0 g/dL (30-55); Mean Corpuscular Hemoglobin 30.0 pg (27-33); Mean Corpuscular Volume 90.9 fl (85-98); Nucleated Red Blood Cells % 0 %; Platelet Count 211 10^3/cmm (157-399); Red Blood Count 3.73 10^6/uL (3.85-5.65); White Blood Count 8.22 10^3/uL (3.29-11.43)
[2024-09-22 04:39] LABS: Alanine Aminotransferase 18 U/L (0-33); Albumin Level 3.3 g/dL (3.5-5.2); Alkaline Phosphatase 70 U/L (35-105); Anion Gap 13.0 (5-19); Aspartate Amino Transferase 27 U/L (0-32); Blood Urea Nitrogen 17 mg/dL (8-23); Calcium 8.6 mg/dL (8.5-10.5); Carbon Dioxide 26 mmol/L (22-29); Chloride 97 mmol/L (98-107); Creatinine Clr Calc Pharmacy 40.7436; Globulin 3.1 g/dL (1.3-4.6); Glucose 121 mg/dL (65-115); Magnesium 1.8 mg/dL (1.7-2.3); Osmolality Calculated 277 mOsm/kg (285-295); Potassium 4.0 mmol/L (3.5-5.1); Sodium 132 mmol/L (136-145); Total Protein 6.4 g/dL (6.6-8.7)
[2024-09-22 04:41] LABS: Cholesterol 154 mg/dL (0-200); HDL Cholesterol 55 mg/dL (60-100); Triglycerides 95 mg/dL (0-150); VLDL Cholestrol Calculation 19 mg/dL (0-30)
[2024-09-22] MEDS: metoprolol succinate ER (24 HR) 25 mg Tablet 12.5 MG PO ×2 (09:35→13:43)
[2024-09-22] MEDS: HYDROcodone-acetaminophen 5-325 mg Tablet 1 TAB PO ×3 (09:35→17:59)
--- NOTE | 2024-09-22 10:43 | ECG_ITS ---
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 Interpretive Statements LEXISCAN: Procedure: At the baseline, the blood pressure was 125/61 mmHg with a heart rate of 102 bpm. The electrocardiogram showed sinus tachycardia with sinus arrhythmia, normal axis with normal ST and T's. The Lexiscan was infused over a period of 20 seconds. A total of 0.4 mg of Lexiscan was infused. The stress phase was continued for a total of 5 minutes. Heart rate was at the end of stress phase was 107 bpm and a blood pressure of 106/42 mmHg. The EKG at the peak infusion revealed normal sinus rhythm with no significant ST-T wave changes. Sestamibi was injected 20 seconds after the Lexiscan infusion. Blood pressure at the end of recovery phase was 105/48 mmHg with a heart rate of 108 bpm. Conclusion: 1. Normal EKG response to Lexiscan infusion 2. No Lexiscan induced chest pain or cardiac arrhythmia. 3. Normal blood pressure and heart rate response. 4. Sestamibi/sestamibi perfusion scan pending; see separate report. Electronically Signed On 09-29-2024 22:33:28 CDT by Alejandro Keller M.D. [email or web address]
[2024-09-22] MEDS: metoprolol succinate ER (24 HR) 25 mg Tablet PO (11:50)
[2024-09-22] MEDS: pantoprazole 40 mg SDV IVP (11:51)
--- NOTE | 2024-09-22 13:13 | P.PN_ITS ---
Subjective 2 Subjective: No acute events overnight. Today morning patient seen sitting up in chair. Denies any nausea, vomiting, headache. Seen with family at bedside. Unhappy for not getting her dinner last night. Patient states overall her appetite is poor currently. Family unhappy that she did not get her pain medications on time. Vitals/I&O/Wt Last Vital Signs Temp 97.5 F L 09/22/24 07:59 Pulse 110 H 09/22/24 07:59 Resp 16 09/22/24 07:59 BP 165/80 09/22/24 07:59 Pulse Ox 92 09/22/24 07:59 O2 Del Method Room Air 09/22/24 07:59 O2 Flow Rate 2 09/20/24 09:56 09/21/24 09/22/24 09/22/24 22:59 06:59 14:59 Intake Total 1000 / 1050 Output Total 800 / 800 300 / 1100 Balance 200 / 250 -300 / -50 Weight last 48 hrs Weight 50.349 kg Weight 47.264 kg Physical Exam 2 Narrative: Accompanied by her daughter. Const: COMMON NORMALS: patient oriented x3 and alert GENERAL APPEARANCE: c ooperative ORIENTATION/CONSCIOUSNESS: Yes awake HENMT: COMMON NORMALS: oropharynx normal Neck/C-Spine: COMMON NORMALS: no JVD Resp: COMMON NORMALS: normal respiratory effort and clear to auscultation bilaterally AUSCULTATION: clear to auscultation bilaterally Cardio: COMMON NORMALS: no JVD, regular rhythm, S1 normal heart sound present, S2 normal heart sound present and No murmurs present (Cardio) RHYTHM: regular rhythm HEART SOUNDS: S1 normal heart sound present and S2 normal heart sound present OTHER: 2/4 aortic murmur GI: COMMON NORMALS: Normal to inspection, nondistended, normoactive bowel sounds present, Soft to palpation and non-tender PALPATION: Yes Soft to palpation Extremity: COMMON NORMALS: no joint enlargement and no pedal edema OTHER: Mild to moderate moderate joint fusion of the right knee Neuro: COMMON NORMALS: patient oriented x3 and moves all extremities S ENSORIUM/ORIENTATION: Yes alert Skin: COMMON NORMALS: no rashes or lesions noted GENERAL SKIN EXAM: no rashes or lesions noted Urinary Catheter Management: Martin: Cath Placed During This Visit: yes, but has since been removed by the nurse Reason for Continuing Indwelling Catheter: Decision to DC Catheter Urinary Catheter Date of Insertion: 09/19/24 Urinary Catheter Time of Insertion: 21:21 Date Urinary Catheter Removed: 09/21/24 Time Urinary Catheter Discontinued: 17:00 Data 09/22/24 03:56 09/22/24 03:56 A&P Assessment and plan 1. Closed fracture of left hip, initial encounter: Post-ORIF. Continue physical therapy. Anticoagulation with Lovenox. [place] every 4 hours as needed for pain control. DC Martin catheter. Monitor hemoglobin. 2. Cardiomyopathy: New finding. Echocardiogram showed EF of 30% with diffuse hypokinesis of left ventricle, mild to moderate concentric LVH, PASP of 56 mmHg. Will start patient on guideline directed medical therapy. Start on Entresto 0.5 mg twice daily, metoprolol succinate 12.5 mg daily. Will plan for further ACS workup with cardiac stress test. Will consult cardiology for possible need of life vest. Currently euvolemic. Check A1c, lipid panel. 3. Essential (primary) hypertension: 4. COPD (chronic obstructive pulmonary disease): Plan: Right knee pain with effusion : Discussed with Ortho, obtaining knee x- ray. Will be following up outpatient. Three-week history of right-knee pain and intermittent swelling after knee gave out; mild effusion noted on exam, concern for degenerative arthritis. - Discussed with orthopedics today with plan to obtain x-ray of the right knee after the surgery. Otherwise without erythema diffuse swelling, she does have some effusion, no signs of infection. Chronic obstructive pulmonary disease : Long-standing COPD; active smoker increases perioperative pulmonary risk. Chronic kidney disease : Known CKD; baseline labs within normal limits. Hypertension : History of hypertension; current blood pressure 140/66 mmHg. Osteoarthritis : Generalized osteoarthritis contributing to right-knee symptoms. Systemic lupus erythematosus : Recent diagnosis; currently managed with topical agents for pruritus. Maintain VTE prophylaxis. Resume her home ointments once available. Requested to confirm home medications. Irritable bowel syndrome : Chronic gastrointestinal condition causing intermittent ?goosy stomach.? Nicotine dependence : Further encouraged cessation. Consider nicotine replacement at discharge. Follow-up with primary provider for consideration of other options. She is aware of complications with smoking discussed risks. Encouraged cessation. She is agreeable to nicotine replacement in the hospital. Requested. Current bkd-dkvr-hun-day smoker; cessation encouraged to improve lung and cardiovascular health and reduce surgical risk. - Initiate nicotine patch therapy with additional lozenges as needed for cravings. Full code Cardiac diet. Lovenox for DVT prophylaxis Famotidine for PUD prophylaxis Plan for the day: Goal blood pressure less than 140/90 mmHg with heart rate below 100. Uptitrate metoprolol to 25 mg daily, Entresto to 1 tablet twice daily. Will uptitrate further as per blood pressure and heart rate tolerance. Poor appetite could be in setting of postoperative status versus mild congestive heart failure. Does have worsening hyponatremia with sodium down to 132. Oral Lasix 20 mg one-time. Start on iron supplementation. N.p.o. after midnight for Lexiscan stress test. Appreciate cardiology recommendations. PDMP PDMP Reviewed: Not Reviewed Attestations 2 Medical Necessity Statement*: Requires further hospitalization for management of post-ORIF care, new congestive heart failure while guideline directed medical therapy is uptitrated, ACS is ruled out with a stress test Diagnoses Closed fracture of left hip, initial encounter S72.002A Encounter type: initial encounter Fracture type: closed Laterality: left Cardiomyopathy I42.9 Essential (primary) hypertension I10 COPD (chronic obstructive pulmonary disease) J44.9
--- NOTE | 2024-09-22 13:34 | P.PN_ITS ---
Subjective 2 Subjective: Patient is sitting up to chair she is pain is controlled. States the pain seems to be a little better every day. Vitals/I&O/Wt Last Vital Signs Temp 97.6 F 09/22/24 12:00 Pulse 90 09/22/24 12:00 Resp 16 09/22/24 12:00 BP 137/86 09/22/24 12:00 Pulse Ox 96 09/22/24 12:00 O2 Del Method Room Air 09/22/24 12:00 O2 Flow Rate 2 09/20/24 09:56 09/21/24 09/22/24 09/22/24 22:59 06:59 14:59 Intake Total 1000 / 1050 Output Total 800 / 800 300 / 1100 Balance 200 / 250 -300 / -50 Weight last 48 hrs Weight 111 lb Weight 104 lb 3.2 oz Physical Exam 2 Narrative: Dressing clean dry and intact Urinary Catheter Management: Martin: Cath Placed During This Visit: yes, but has since been removed by the nurse Reason for Continuing Indwelling Catheter: Decision to DC Catheter Urinary Catheter Date of Insertion: 09/19/24 Urinary Catheter Time of Insertion: 21:21 Date Urinary Catheter Removed: 09/21/24 Time Urinary Catheter Discontinued: 17:00 Data 09/22/24 03:56 09/22/24 03:56 A&P Assessment and plan 1. Closed fracture of left hip, initial encounter: Patient is postop day #2 left hip hemiarthroplasty Up with physical therapy She is get evaluated by cardiology Okay to discharge from orthopedic standpoint after this. PDMP PDMP Reviewed: Not Reviewed Attestations 2 Medical Necessity Statement*: Per primary service Coding Level of Care Code Acute Code for [facility] Diagnoses Closed fracture of left hip, initial encounter S72.002A Encounter type: initial encounter Fracture type: closed Laterality: left
--- NOTE | 2024-09-22 20:11 | P.PN_ITS ---
Subjective 2 Subjective: Sitting in the chair overall doing fine and stable. Vitals/I&O/Wt Last Vital Signs Temp 98.2 F 09/22/24 19:26 Pulse 74 09/22/24 19:26 Resp 17 09/22/24 19:26 BP 127/68 09/22/24 19:26 Pulse Ox 96 09/22/24 19:26 O2 Del Method Room Air 09/22/24 19:26 O2 Flow Rate 2 09/20/24 09:56 09/22/24 09/22/24 09/22/24 06:59 14:59 22:59 Intake Total 240 / 240 Output Total 300 / 1100 200 / 200 500 / 700 Balance -300 / -50 40 / 40 -500 / -460 Weight last 48 hrs Weight 111 lb Weight 104 lb 3.2 oz Physical Exam 2 Const: OTHER: GENERAL: Patient is alert, awake and oriented x3. HEART: Regular S1 and S2. No murmur, rub or gallop. LUNGS: Clear to auscultate bilaterally. CENTRAL NERVOUS SYSTEM: Grossly nonfocal. EXTREMITIES: Lower extremities with out edema bilaterally. Urinary Catheter Management: Martin: Cath Placed During This Visit: yes, but has since been removed by the nurse Reason for Continuing Indwelling Catheter: Decision to DC Catheter Urinary Catheter Date of Insertion: 09/19/24 Urinary Catheter Time of Insertion: 21:21 Date Urinary Catheter Removed: 09/21/24 Time Urinary Catheter Discontinued: 17:00 Data 09/22/24 03:56 09/22/24 03:56 A&P Assessment and plan 1. Cardiomyopathy: 2. LV dysfunction: 3. COPD (chronic obstructive pulmonary disease): 4. Pulmonary hypertension: Plan: New onset of heart failure may need to be differentiated between ischemic versus nonischemic cannot rule out stress-induced cardiomyopathy in this time of stress of surgery and fracture, we therefore agree with our medicine colleague for stress test before discharge Lexiscan MIBI Patient appeared to be in well compensated state of heart failure agree with starting patient on Entresto Continue beta-nadeen Patient will benefit with oxygen for pulmonary hypertension if she agrees which is secondary to COPD and partly due to heart failure could be a mixed picture of pre and postcapillary. On today's visit dated 09/22/2024 patient is feeling better she is sitting in the chair. Continue current management Plan for stress test before discharge PDMP PDMP Reviewed: Not Reviewed Attestations 2 Medical Necessity Statement*: Patient require continuation hospitalization for above defined care Coding Level of Care Code Acute Code for [facility] Diagnoses Cardiomyopathy I42.9 LV dysfunction I51.9 COPD (chronic obstructive pulmonary disease) J44.9 Pulmonary hypertension I27.20
[2024-09-23] VITALS (7 sets, daily range): BP systolic 105–149; BP diastolic 48–77; PULSE 81–108; RESP 15–20; TEMP 36.6–36.8; O2SAT 93–98
[2024-09-23 03:33] LABS: Hematocrit 31.1 % (36-47); Hemoglobin 10.40 g/dL (11.27-16.99); Mean Corpuscular HGB Conc 33.4 g/dL (30-55); Mean Corpuscular Hemoglobin 30.6 pg (27-33); Mean Corpuscular Volume 91.5 fl (85-98); Nucleated Red Blood Cells % 0 %; Platelet Count 236 10^3/cmm (157-399); Red Blood Count 3.40 10^6/uL (3.85-5.65); White Blood Count 5.99 10^3/uL (3.29-11.43)
[2024-09-23 03:48] LABS: Magnesium 1.8 mg/dL (1.7-2.3)
[2024-09-23 03:51] LABS: Alanine Aminotransferase 17 U/L (0-33); Albumin Level 3.3 g/dL (3.5-5.2); Alkaline Phosphatase 70 U/L (35-105); Aspartate Amino Transferase 26 U/L (0-32); Blood Urea Nitrogen 21 mg/dL (8-23); Calcium 8.7 mg/dL (8.5-10.5); Carbon Dioxide 27 mmol/L (22-29); Chloride 98 mmol/L (98-107); Creatinine Clr Calc Pharmacy 40.7436; Globulin 2.6 g/dL (1.3-4.6); Glucose 113 mg/dL (65-115); Osmolality Calculated 284 mOsm/kg (285-295); Sodium 135 mmol/L (136-145); Total Protein 5.9 g/dL (6.6-8.7)
[2024-09-23 03:56] LABS: Anion Gap 14.0 (5-19); Potassium 4.0 mmol/L (3.5-5.1)
--- NOTE | 2024-09-23 05:28 | PC.NURSE ---
At 0526, offered patient pain medication prior to getting up for scheduled stress test. Patient declined, stating she does not want to take anything on an empty stomach due to being NPO at midnight last night. Reports experiencing only slight pain when getting up and states she can handle it at this time. Patient is AAOx4, resting in bed, no distress noted. Encouraged patient to request pain medication if pain increases with ambulation. Call light, belongings in reach, bed locked lowest position, SR up x2.
[2024-09-23] MEDS: pantoprazole 40 mg SDV IVP (08:54)
[2024-09-23] MEDS: metoprolol succinate ER (24 HR) 25 mg Tablet PO (08:54)
[2024-09-23] MEDS: HYDROcodone-acetaminophen 5-325 mg Tablet 1 TAB PO ×3 (09:07→18:21)
--- NOTE | 2024-09-23 10:43 | NMCV_ITS ---
NM cecily perf SPECT r/s* [id number] Brielle Turpin Age: 83 Gender: F : 1940 Exam Date: 09/23/2024 06:53 Ordering Phys: Tony Reveles MD Technologist: ANDREE Brown Exam Location: [facility] Indications: cp STRESS TEST Please see separate stress test report [facility] for full findings IMAGE PROTOCOL Rest/Stress 1 Lexiscan Day Radiopharmaceutical Dose (mCi) Administration Site Administered by Rest: Tc-99m 10.8 IV Kristie Frank, [employer] Sestamibi Stress:Tc-99m 32.7 IV Kristie Yanesgle, [employer] Sestamibi Rest: 23-Sep-2024 60 Discovery 630 Stress: 23-Sep-2024 30 Discovery 630 0.4mg Lexiscan. Supine position only as patient was unable to lay prone. SPECT RESULTS Technical Quality: Good Raw Data Analysis: Normal Image Corrections: No attenuation or motion correction applied Summed Stress Score: 4 Summed Rest Score: 0 Summed Difference Score: 4 PERFUSION FINDINGS There is a medium sized area of reversible perfusion defect seen in the lateral and inferolateral wilcox. This is consistent with medium sized area of ischemia seen in the left circumflex artery territory. Prone imaging not performed that reduces the specificity of the stress test. Clinical correlation is required. FUNCTIONAL RESULTS (calculated via Gated SPECT) Stress Image LV EF (%): 40 Stress EDV (mL):99 TID: 1.06 Stress ESV (mL):59 FUNCTIONAL FINDINGS: LV systolic function is mildly reduced with EF of 40% IMPRESSIONS 1. Abnormal myocardial perfusion imaging with medium sized area of ischemia noted in the left circumflex artery territory. However prone imaging not performed that reduces specificity of this test. Clinical correlation is required. 2. LV systolic function is mildly reduced with EF of 40% Alejandro Keller MD (Electronically Signed) Final Date: 23 September 2024 09:36 S
--- NOTE | 2024-09-23 11:02 | P.PN_ITS ---
<Statement entered by Yevgeniy Grewal MD - 09/23/24 19:49> Patient was evaluated and cared for in conjunction with an advanced practice practitioner. I personally examined the patient and reviewed the chart and all pertinent data including imaging, telemetry, and laboratory results. I discussed the patient in detail with the advanced practice practitioner. Please see their note for complete H&P testing result and agreed upon plan of care for the patient. Subjective 2 Subjective: No events noted overnight. She is feeling well today. Completed stress test this morning, pending read. Vitals/I&O/Wt Last Vital Signs Temp 97.9 F 09/23/24 08:00 Pulse 108 H 09/23/24 08:11 Resp 17 09/23/24 08:00 BP 105/48 09/23/24 08:11 Pulse Ox 96 09/23/24 08:00 O2 Del Method Room Air 09/23/24 08:00 O2 Flow Rate 2 09/20/24 09:56 09/22/24 09/23/24 09/23/24 22:59 06:59 14:59 Output Total 500 / 1050 350 / 1050 Balance -500 / -810 -350 / -810 Weight last 48 hrs Weight 104 lb 14.4 oz Weight 111 lb Physical Exam 2 Const: COMMON NORMALS: no acute distress and patient oriented x3 GENERAL APPEARANCE: cooperative and comfortable ORIENTATION/CONSCIOUSNESS: Yes awake, Yes oriented to person, Yes oriented to place and Yes oriented to time Chest: COMMONS NORMALS: normal inspection of the chest and normal palpation of entire chest wall CHEST: Yes Symmetrical chest wall rise Resp: COMMON NORMALS: normal respiratory effort, No retractions, No use of accessory muscles and clear to auscultation bilaterally EFFORT & INSPECTION: Yes symmetric chest movement AUSCULTATION: clear to auscultation bilaterally Cardio: COMMON NORMALS: regular rate, regular rhythm, S1 normal heart sound present, S2 normal heart sound present, No gallops present (Cardio), No clicks present (Cardio), No murmurs present (Cardio) and No rub (Cardio) RATE: r egular rate RHYTHM: regular rhythm HEART SOUNDS: S1 normal heart sound present and S2 normal heart sound present PERIPHERAL PULSES: radial pulses present Extremity: COMMON NORMALS: no pedal edema Neuro: COMMON NORMALS: patient oriented x3 and moves all extremities S ENSORIUM/ORIENTATION: Yes oriented to person, Yes oriented to place and Yes oriented to time Urinary Catheter Management: Martin: Cath Placed During This Visit: yes, but has since been removed by the nurse Reason for Continuing Indwelling Catheter: Decision to DC Catheter Urinary Catheter Date of Insertion: 09/19/24 Urinary Catheter Time of Insertion: 21:21 Date Urinary Catheter Removed: 09/21/24 Time Urinary Catheter Discontinued: 17:00 Data 09/23/24 02:43 09/23/24 02:43 A&P Assessment and plan 1. Cardiomyopathy: 2. LV dysfunction: 3. COPD (chronic obstructive pulmonary disease): 4. Pulmonary hypertension: Plan: Stress test is pending read, no chest pain or shortness of breath. She appears euvolemic, continue GDMT with Entresto and metoprolol succinate. PDMP PDMP Reviewed: Not Reviewed Attestations 2 Medical Necessity Statement*: Ischemic workup for new onset LV dysfunction Coding Level of Care Code Acute Code for [facility] Diagnoses Cardiomyopathy I42.9 LV dysfunction I51.9 COPD (chronic obstructive pulmonary disease) J44.9 Pulmonary hypertension I27.20
--- NOTE | 2024-09-23 12:20 | PM.DCS ---
Discharge Providers Date of Admission: 09/19/24 12:59 Date of Discharge: September 23, 2024 Attending Provider at Admission: Kyle Guerrero Attending Provider at Discharge: Harris Zhou MD Primary Care Provider: ESTELA Alicia Diagnoses at Discharge Discharge Diagnosis 1. Cardiomyopathy: 2. LV dysfunction: 3. COPD (chronic obstructive pulmonary disease): 4. Pulmonary hypertension: Reason for Visit Reason for Visit: left hip pain Physical Exam Urinary Catheter Management: Martin: Cath Placed During This Visit: yes, but has since been removed by the nurse Reason for Continuing Indwelling Catheter: Decision to DC Catheter Urinary Catheter Date of Insertion: 09/19/24 Urinary Catheter Time of Insertion: 21:21 Date Urinary Catheter Removed: 09/21/24 Time Urinary Catheter Discontinued: 17:00 Discharge Data Studies Completed and Pending Completed Studies During Hospitalization Category Date Time Status Sestamibi Stress Test Request Routine Exams 09/22/24 10:43 Draft XR chest 1V portable [id number] Stat Exams 09/19/24 11:03 Completed XR hip LT 2-3V wo/w pel* [id number] Stat Exams 09/19/24 10:42 Completed XR knee RT 1-2V [id number] Routine Exams 09/20/24 09:17 Completed XR pelvis 1-2V* [id number] Routine Exams 09/20/24 09:17 Completed NM cecily perf SPECT r/s* [id number] Routine Nuc Med 09/23/24 10:43 Completed CV. echo complete* [id number] Routine Ultrasound 09/19/24 16:34 Completed Pending at discharge Category Date Time Status MAG [Magnesium] AM LABS Lab 09/24/24 04:00 Ordered Radiology Impressions Hip/Pelvis X-Ray 09/19/24 10:42 IMPRESSION: Subcapital fracture as above. Chest X-Ray 09/19/24 11:03 IMPRESSION: Mild cardiomegaly. Probable central lobar emphysema without lung hyperexpansion. Knee X-Ray 09/20/24 09:17 IMPRESSION: Significant osteoarthritis as above. No acute abnormality identified. Pelvis X-Ray 09/20/24 09:17 IMPRESSION: Total left hip arthroplasty without abnormality. Laboratory Results WBC 5.99 10^3/uL (3.29-11.43) 09/23/24 02:43 RBC 3.40 10^6/uL (3.85-5.65) L 09/23/24 02:43 Hgb 10.40 g/dL (11.27-16.99) L 09/23/24 02:43 Hct 31.1 % (36-47) L 09/23/24 02:43 MCV 91.5 fl (85-98) 09/23/24 02:43 MCH 30.6 pg (27-33) 09/23/24 02:43 MCHC 33.4 g/dL (30-55) 09/23/24 02:43 RDW 13.7 % (12.1-15.1) 09/23/24 02:43 Plt Count 236 10^3/cmm (157-399) 09/23/24 02:43 MPV 10.4 fL (7.4-10.4) 09/23/24 02:43 Neut % (Auto) 70.2 % 09/23/24 02:43 Lymph % (Auto) 16.2 % 09/23/24 02:43 [place] % (Auto) 10.2 % 09/23/24 02:43 Eos % (Auto) 2.8 % 09/23/24 02:43 Baso % (Auto) 0.3 % 09/23/24 02:43 Neut # (Auto) 4.20 10^3/uL (1.8-7.7) 09/23/24 02:43 Lymph # (Auto) 1.0 10^3/uL (0.8-4.8) 09/23/24 02:43 [place] # (Auto) 0.6 10^3/uL (0.2-0.9) 09/23/24 02:43 Eos # (Auto) 0.2 10^3/uL (0.0-0.8) 09/23/24 02:43 Baso # (Auto) 0.0 10^3/uL (0.0-0.1) 09/23/24 02:43 Nucleated RBC % (auto) 0 % 09/23/24 02:43 Nucleated RBCs # 0.0 /100WBC 09/23/24 02:43 PT 12.90 SECONDS (12.1-14.9) 09/19/24 10:41 INR 0.90 (0.8-1.2) 09/19/24 10:41 APTT 29.2 SECONDS (23.9-36.7) 09/19/24 10:41 Sodium 135 mmol/L (136-145) L 09/23/24 02:43 Potassium 4.0 mmol/L (3.5-5.1) 09/23/24 02:43 Chloride 98 mmol/L (98-107) 09/23/24 02:43 Carbon Dioxide 27 mmol/L (22-29) 09/23/24 02:43 Anion Gap 14.0 (5-19) 09/23/24 02:43 BUN 21 mg/dL (8-23) 09/23/24 02:43 Creatinine 0.6 mg/dL (0.5-0.9) 09/23/24 02:43 GFR Calculation Not Reportable 09/23/24 02:43 Glucose 113 mg/dL (65-115) 09/23/24 02:43 Estimat Average Glucose 103 09/21/24 03:36 Hemoglobin A1c 5.2 % (4.0-6.0) 09/21/24 03:36 Calculated Osmolality 284 mOsm/kg (285-295) L 09/23/24 02:43 Calcium 8.7 mg/dL (8.5-10.5) 09/23/24 02:43 Magnesium 1.8 mg/dL (1.7-2.3) 09/23/24 02:43 Iron 20 ug/dL (37-145) L 09/21/24 03:36 TIBC 282 mcg/dl 09/21/24 03:36 % Saturation 7.0 % (20-50) L 09/21/24 03:36 Unsat Iron Binding 262 ug/dL (112-347) 09/21/24 03:36 Total Bilirubin 0.5 mg/dL (0.15-1.2) 09/23/24 02:43 AST 26 U/L (0-32) 09/23/24 02:43 ALT 17 U/L (0-33) 09/23/24 02:43 Alkaline Phosphatase 70 U/L (35-105) 09/23/24 02:43 Total Protein 5.9 g/dL (6.6-8.7) L 09/23/24 02:43 Albumin 3.3 g/dL (3.5-5.2) L 09/23/24 02:43 Globulin 2.6 g/dL (1.3-4.6) 09/23/24 02:43 Triglycerides 95 mg/dL (0-150) 09/22/24 03:56 Cholesterol 154 mg/dL (0-200) 09/22/24 03:56 LDL Cholesterol, Calc 80 mg/dL (50-129) 09/22/24 03:56 Total VLDL Cholesterol 19 mg/dL (0-30) 09/22/24 03:56 HDL Cholesterol 55 mg/dL (60-100) L 09/22/24 03:56 Cholesterol/HDL Ratio 2.80 mg/dL (0.0-4.40) 09/22/24 03:56 Vitamin B12 422 pg/mL (232-1245) 09/21/24 03:36 Folate > 20.0 ng/mL (4.8-37.3) 09/22/24 03:56 TSH 0.71 uIU/mL (0.27-4.20) 09/21/24 03:36 Urine Color Yellow (Yellow) 09/19/24 11:55 Urine Appearance Clear (CLEAR) 09/19/24 11:55 Urine pH 8.0 (5-7) A 09/19/24 11:55 Ur Specific [place] 1.012 (1.005-1.030) 09/19/24 11:55 Urine Protein Negative (Negative) 09/19/24 11:55 Urine Glucose (UA) Negative (Normal) 09/19/24 11:55 Urine Ketones Negative (Negative) 09/19/24 11:55 Urine Blood Negative (Negative) 09/19/24 11:55 Urine Nitrate Negative (Negative) 09/19/24 11:55 Urine Bilirubin Negative (Negative) 09/19/24 11:55 Urine Urobilinogen 1.0 mg/dL (Negative) 09/19/24 11:55 Ur Leukocyte Esterase Negative (Negative) 09/19/24 11:55 Urine RBC 0-2 /hpf (0-2) 09/19/24 11:55 Urine WBC 0-5 /hpf (0-5) 09/19/24 11:55 Ur Squamous Epith Cells 0-5 /hpf (0-5) 09/19/24 11:55 Amorphous Sediment Not Reportable 09/19/24 11:55 Urine Bacteria None seen /hpf (NONE) 09/19/24 11:55 Hyaline Casts 0-4 /lpf H 09/19/24 11:55 Vitals Last Vital Signs Temp 98.1 F 09/23/24 11:14 Pulse 105 H 09/23/24 11:14 Resp 17 09/23/24 11:14 BP 118/65 09/23/24 11:14 Pulse Ox 95 09/23/24 11:14 O2 Del Method Room Air 09/23/24 11:14 O2 Flow Rate 2 09/20/24 09:56 Discharge Plan Discharge Patient Disposition: Home Health Service Condition: Stable Prescriptions: New hydrocodone-acetaminophen 5-325 mg Tablet 1 tab PO Q4H PRN (Reason: Moderate Pain) 5 Days Qty: 30 0RF metoprolol succinate 25 mg Tablet Extended Release 24 Hr 25 mg PO DAILY 30 Days Qty: 30 0RF Entresto 24-26 mg Tablet 1 tab PO BID 30 Days Qty: 60 0RF nitroglycerin 0.4 mg Tablet, Sublingual 0.4 mg sublingual Q5M PRN (Reason: Chest Pain) 30 Days Qty: 30 0RF Continued diclofenac sodium [Voltaren Arthritis Pain] 1 % gel 2 g topical QID Qty: 100 0RF Rx Instructions: apply to single elbow, wrist or hand; for hand includes palm/fingers/back of hand Qvar RediHaler 80 mcg/actuation HFA aerosol breath activated 1 inh inhalation Q12H Qty: 10.6 5RF Rx Instructions: administer with spacer fenofibrate nanocrystallized 145 mg tablet 145 mg PO DAILY Qty: 90 1RF propranolol [Inderal LA] 60 mg capsule,extended release 24 hr 60 mg PO DAILY Qty: 90 1RF clomipramine 75 mg capsule 75 mg PO DAILY Qty: 30 11RF acetaminophen [Tylenol] 325 mg Tablet 650 mg PO QID PRN (Reason: Fever Or Pain) aspirin [Lorenzo Low Dose Aspirin] 81 mg Tablet,Delayed Release (Dr/Ec) 81 mg PO DAILY multivit with min-folic acid [Daily Multiple For Women 50+] 0.4 mg Tablet 1 tab PO DAILY Discontinued naproxen sodium [Aleve] 220 mg Tablet 220 mg PO Q12H PRN (Reason: Fever Or Pain) Proof Tester OK for DC: Cardiology Other Ambulatory Orders: DME: [facility] (Order) Location: None Selected Ordered By: Kyle Guerrero Referrals: [facility] [place] [Outside] Ever Vasquez DO [Physician, Orthopedics] - 10/08/24 8:30 am Carlos Mittal FNP-C [Primary Care Provider, Family Practice] Patient Instructions: Acute Wound Care (DC), Opioid Safety, Post Anesthesia Care, Patient Portal & Dequan Instructions Activity Restrictions/Additional Instructions: You are being discharged from the hospital today during which time you have been under the care of Dr. Vasquez. You had a left hip fracture. You were treated for this injury with left hip hemiarthroplasty. You may resume you normal diet (including any special diets as directed by your primary doctor) as well as your home medications. You should follow up with you primary doctor if you have any questions regarding medication you took prior to your stay in the hospital. You may take your pain medication as prescribed. After the first few days, take your pain medication as needed. Do not drive or drink alcohol while taking your pain medication. Your injury may increase your risk of developing a blood clot,or DVT, in your arm or leg. This could potentially dislodge and travel to your lungs and become a life threatening condition called apulmonary embolus,or PE. You have been prescribed aspirin to be taken to prevent this. Frequent movement of the legs will also help prevent this from occurring. If you develop any new or worsening cough, chestpain, bloody sputum or shortness of breath, call 911 or go to the EmergencyRoom. Always keep your surgical incision/dressing clean and dry. If you experience increasing pain at your incision site, redness, swelling, increasing discharge, foul odors, or fevers (greater than 100.4), night sweats or chills you should call the office at the above number. If you feel this is an emergency you should be evaluated in the Emergency Department of a nearby hospital. Orthopedic Patient Instructions Summary: Weight Bearing: Weight-bear as tolerated Activity: As tolerated. Diet: Regular. Wound Care: Keep dressing clean and dry. Anticoagulation: Aspirin Pain Medication: Take only as needed. Ice, rest and elevation will be of great benefit. Please plan to follow-up [facility] Dr Vasquez in 2 weeks. You will need to call the clinic [phone] to schedule this visit. Thank you far allowing me to participate in your care. Do not hesitate to call the office with any questions or concerns. Coding Level of Care Code Acute Code for Chg Fwd Diagnoses Cardiomyopathy I42.9 LV dysfunction I51.9 COPD (chronic obstructive pulmonary disease) J44.9 Pulmonary hypertension I27.20
[2024-09-23] MEDS: polyethylene glycol 3350 Pkt 17 gm PO (14:01)
--- NOTE | 2024-09-23 14:35 | PC.SOCIAL ---
*IMM Update. Signed and dated , placed in chart. Copy gave to patient.
--- NOTE | 2024-09-23 14:59 | PC.NURSE ---
Patient discussed with this nurse that at home when she needs to have a bowel movement she puts a glove on and puts my finger up there (her rectum) to move the hemorrhoids out of the way and digs out the balls so she can have a bowel movement. She states she does this often or she can not have bowel movement. This nurse instructed that she should not have to do that to have a bowel movement and she should talk to her primary care provider to follow up with them about how to help with her hemorrhoids or her bowel habits. Explained to her the risk of perf.
--- NOTE | 2024-09-23 16:37 | P.PN_ITS ---
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, she does not want to slow down, she also has not had a bowel movement since surgery but is passing gas Vitals/I&O/Wt Last Vital Signs Temp 97.8 F 09/23/24 15:22 Pulse 87 09/23/24 15:22 Resp 16 09/23/24 15:22 BP 123/77 09/23/24 15:22 Pulse Ox 96 09/23/24 15:22 O2 Del Method Room Air 09/23/24 15:22 O2 Flow Rate 2 09/20/24 09:56 09/23/24 09/23/24 09/23/24 06:59 14:59 22:59 Output Total 350 / 1050 Balance -350 / -810 Weight last 48 hrs Weight 47.582 kg Weight 50.349 kg Physical Exam 2 Const: COMMON NORMALS: no acute distress and patient oriented x3 Resp: COMMON NORMALS: normal respiratory effort, No retractions, No use of accessory muscles and clear to auscultation bilaterally AUSCULTATION: clear to auscultation bilaterally Cardio: COMMON NORMALS: regular rate, regular rhythm, S1 normal heart sound present and S2 normal heart sound present RATE: regular rate RHYTHM: r egular rhythm HEART SOUNDS: S1 normal heart sound present and S2 normal heart sound present GI: COMMON NORMALS: Normal to inspection, nondistended, normoactive bowel sounds present and non-tender Extremity: COMMON NORMALS: no pedal edema Neuro: COMMON NORMALS: patient oriented x3 Psych: COMMON NORMALS: mental status grossly normal Urinary Catheter Management: Martin: Cath Placed During This Visit: yes, but has since been removed by the nurse Reason for Continuing Indwelling Catheter: Decision to DC Catheter Urinary Catheter Date of Insertion: 09/19/24 Urinary Catheter Time of Insertion: 21:21 Date Urinary Catheter Removed: 09/21/24 Time Urinary Catheter Discontinued: 17:00 Data 09/23/24 02:43 09/23/24 02:43 A&P Assessment and plan 1. Closed fracture of left hip, initial encounter: Status post ORIF Continue physical therapy. Anticoagulation with Lovenox. Continue hydrocodone 2. Cardiomyopathy: Echocardiogram showed EF of 30% with diffuse hypokinesis of left ventricle, mild to moderate concentric LVH, PASP of 56 mmHg. Continue start on Entresto 0.5 mg twice daily, metoprolol succinate 12.5 mg daily. Plan on cardiac stress test today Cardiology consulted 3. Essential (primary) hypertension: 4. COPD (chronic obstructive pulmonary disease): Plan: Right knee pain with effusion : X-ray Joint effusion. There is significant narrowing (near [id number] posteriorly) of the medial knee joint space with irregular contour of the articular medial femoral condyle and tibial plateau with significant subchondral sclerosis and osteophytosis. Deformity of the medial tibial plateau could be due to previous old healed tibial plateau fracture no acute abnormality identified. Mild narrowing of the lateral knee joint space with mild subchondral sclerosis. Mild narrowing of the patellofemoral joint space with mild to moderate subchondral sclerosis and osteophytosis. Moderate opposing osteophytosis of the femoral condyles - Continue medical management Chronic obstructive pulmonary disease : Long-standing COPD; active smoker Chronic kidney disease : Monitor Hypertension : Monitor Osteoarthritis : Generalized osteoarthritis contributing to right-knee symptoms. Systemic lupus erythematosus : Recent diagnosis; currently managed with topical agents for pruritus. Maintain VTE prophylaxis. Irritable bowel syndrome : Chronic gastrointestinal condition causing intermittent ?goosy stomach.? Nicotine dependence : Smoking cessation counseling. Full code Cardiac diet. Lovenox for DVT prophylaxis Famotidine for PUD prophylaxis Plan for the day: PT OT, pain control, follow stress testing, bowel regimen PDMP PDMP Reviewed: Last Reviewed 09/23/24 13:08 EDT by Harris Zhou MD Attestations 2 Medical Necessity Statement*: Patient requires hospitalization for cardiomyopathy, requiring stress testing Diagnoses Closed fracture of left hip, initial encounter S72.002A Encounter type: initial encounter Fracture type: closed Laterality: left Cardiomyopathy I42.9 Essential (primary) hypertension I10 COPD (chronic obstructive pulmonary disease) J44.9
[2024-09-24] VITALS: BP 126/77; PULSE 98; RESP 16; TEMP 36.8; O2SAT 98
[2024-09-24 03:13] LABS: Hematocrit 32.8 % (36-47); Hemoglobin 11.00 g/dL (11.27-16.99); Mean Corpuscular HGB Conc 33.5 g/dL (30-55); Mean Corpuscular Hemoglobin 30.1 pg (27-33); Mean Corpuscular Volume 89.6 fl (85-98); Nucleated Red Blood Cells % 0 %; Platelet Count 281 10^3/cmm (157-399); Red Blood Count 3.66 10^6/uL (3.85-5.65); White Blood Count 5.56 10^3/uL (3.29-11.43)
[2024-09-24 03:26] VITALS: BP 153/69; PULSE 101; RESP 20; TEMP 36.6; O2SAT 95
[2024-09-24 03:47] LABS: Anion Gap 13.0 (5-19); Blood Urea Nitrogen 23 mg/dL (8-23); Calcium 8.9 mg/dL (8.5-10.5); Carbon Dioxide 26 mmol/L (22-29); Chloride 98 mmol/L (98-107); Creatinine Clr Calc Pharmacy 39.9631; Glucose 126 mg/dL (65-115); Magnesium 1.8 mg/dL (1.7-2.3); Osmolality Calculated 281 mOsm/kg (285-295); Potassium 4.0 mmol/L (3.5-5.1); Sodium 133 mmol/L (136-145)
[2024-09-24 08:00] VITALS: BP 113/63; PULSE 109; RESP 24; TEMP 36.3; O2SAT 96
[2024-09-24] MEDS: polyethylene glycol 3350 Pkt 17 gm PO (08:14)
[2024-09-24] MEDS: metoprolol succinate ER (24 HR) 25 mg Tablet PO (08:14)
[2024-09-24] MEDS: pantoprazole 40 mg SDV IVP (08:14)
[2024-09-24] MEDS: ondansetron 2 mg/ML SDV 2 mL 4 MG IVP (08:24)
[2024-09-24] MEDS: HYDROcodone-acetaminophen 5-325 mg Tablet 1 TAB PO (08:24)
--- NOTE | 2024-09-24 10:19 | P.PN_ITS ---
<Statement entered by Yevgeniy Grewal MD - 09/24/24 18:38> Patient was evaluated and cared for in conjunction with an advanced practice practitioner. I personally examined the patient and reviewed the chart and all pertinent data including imaging, telemetry, and laboratory results. I discussed the patient in detail with the advanced practice practitioner. Please see their note for complete H&P testing result and agreed upon plan of care for the patient. Subjective 2 Subjective: She has done well overnight, moved to [facility] from [facility]. No chest pain or shortness of breath. She is ambulated with PT this morning. Plan is for left heart cath at 0600 tomorrow. Vitals/I&O/Wt Last Vital Signs Temp 97.3 F L 09/24/24 08:00 Pulse 109 H 09/24/24 08:00 Resp 24 H 09/24/24 08:00 BP 113/63 09/24/24 08:00 Pulse Ox 96 09/24/24 08:00 O2 Del Method Room Air 09/24/24 08:00 O2 Flow Rate 2 09/20/24 09:56 09/23/24 09/24/24 09/24/24 22:59 06:59 14:59 Intake Total 240 / 240 Balance 240 / 240 Weight last 48 hrs Weight 105 lb 11.2 oz Weight 104 lb 14.4 oz Physical Exam 2 Const: COMMON NORMALS: no acute distress and patient oriented x3 GENERAL APPEARANCE: cooperative and comfortable ORIENTATION/CONSCIOUSNESS: Yes awake, Yes oriented to person, Yes oriented to place and Yes oriented to time Chest: COMMONS NORMALS: normal inspection of the chest and normal palpation of entire chest wall CHEST: Yes Symmetrical chest wall rise Resp: COMMON NORMALS: normal respiratory effort, No retractions, No use of accessory muscles and clear to auscultation bilaterally EFFORT & INSPECTION: Yes symmetric chest movement AUSCULTATION: clear to auscultation bilaterally Cardio: COMMON NORMALS: regular rate, regular rhythm, S1 normal heart sound present, S2 normal heart sound present, No gallops present (Cardio), No clicks present (Cardio), No murmurs present (Cardio) and No rub (Cardio) RATE: r egular rate RHYTHM: regular rhythm HEART SOUNDS: S1 normal heart sound present and S2 normal heart sound present PERIPHERAL PULSES: radial pulses present Extremity: COMMON NORMALS: no pedal edema Neuro: COMMON NORMALS: patient oriented x3 and moves all extremities S ENSORIUM/ORIENTATION: Yes oriented to person, Yes oriented to place and Yes oriented to time Urinary Catheter Management: Martin: Cath Placed During This Visit: yes, but has since been removed by the nurse Reason for Continuing Indwelling Catheter: Decision to DC Catheter Urinary Catheter Date of Insertion: 09/19/24 Urinary Catheter Time of Insertion: 21:21 Date Urinary Catheter Removed: 09/21/24 Time Urinary Catheter Discontinued: 17:00 Data 09/24/24 03:05 09/24/24 03:05 A&P Assessment and plan 1. Abnormal stress test: 2. Cigarette smoker: 3. LV dysfunction: 4. Mixed hyperlipidemia: 5. Essential (primary) hypertension: Plan: Continue aspirin, Entresto, metoprolol succinate. Creatinine 0.6. Plan for [facility] tomorrow morning. N.p.o. after midnight tonight. She appears euvolemic, hemoglobin 11. PDMP PDMP Reviewed: Not Reviewed Attestations 2 Medical Necessity Statement*: Ischemic workup for new onset LV dysfunction Coding Level of Care Code Acute Code for Chg Fwd Diagnoses Abnormal stress test R94.39 Cigarette smoker F17.210 LV dysfunction I51.9 Mixed hyperlipidemia E78.2 Essential (primary) hypertension I10
[2024-09-24 11:12] VITALS: BP 124/59; PULSE 92; RESP 20; TEMP 36.4; O2SAT 94
[2024-09-24 18:10] VITALS: BP 131/66; PULSE 90; RESP 21; O2SAT 92
[2024-09-24 19:39] VITALS: BP 131/72; PULSE 94; RESP 21; TEMP 36.6; O2SAT 95
[2024-09-25] VITALS (7 sets, daily range): BP systolic 99–156; BP diastolic 51–86; PULSE 96–117; RESP 18–28; TEMP 36.5–37.1; O2SAT 93–98
[2024-09-25 04:06] LABS: Hematocrit 31.1 % (36-47); Hemoglobin 10.30 g/dL (11.27-16.99); Mean Corpuscular HGB Conc 33.1 g/dL (30-55); Mean Corpuscular Hemoglobin 30.1 pg (27-33); Mean Corpuscular Volume 90.9 fl (85-98); Nucleated Red Blood Cells % 0 %; Platelet Count 295 10^3/cmm (157-399); Red Blood Count 3.42 10^6/uL (3.85-5.65); White Blood Count 4.86 10^3/uL (3.29-11.43)
[2024-09-25 04:28] LABS: Anion Gap 13.0 (5-19); Blood Urea Nitrogen 23 mg/dL (8-23); Calcium 8.8 mg/dL (8.5-10.5); Carbon Dioxide 26 mmol/L (22-29); Chloride 101 mmol/L (98-107); Creatinine Clr Calc Pharmacy 39.6096; Glucose 109 mg/dL (65-115); Osmolality Calculated 286 mOsm/kg (285-295); Potassium 4.0 mmol/L (3.5-5.1); Sodium 136 mmol/L (136-145)
--- NOTE | 2024-09-25 06:27 | W.PM.OPSUD ---
Surgery/Procedure H&P Update DATE OF PROCEDURE: September 25, 2024 DATE H&P PERFORMED: 09/21/24 H&P UPDATE INFORMATION: I have reviewed H&P completed within last 30 days, I have examined patient prior to procedure and No changes to prior documentation PREOP DIAGNOSIS: Abnormal stress, new onset of heart failure PRIMARY INDICATION FOR PROCEDURE: New onset of heart failure Abnormal stress test PLANNED PROCEDURE: Operation Date: 09/20/24 09:10 Proposed Procedures p Left hip hemiarthroplasty(Left) - Ever Vasquez DO PATIENT REASSESSED PRIOR TO SEDATION, WITH NO CHANGE NOTED: Yes PHYSICAL EXAM: alert, oriented x 3, clear to auscultation bilaterally, regular rate & rhythm and operative site marked OTHER PERTINENT EXAM FINDINGS: All risk-benefit and alternative for the procedure has been explained to the patient patient understand 2% risk of stroke major bleed, patient understand 5% risk of minor bleeding oozing infection hematoma urgent emergent vascular surgery contrast-induced nephropathy pseudoaneurysm. She agrees to it and would like to proceed with it AIRWAY EVAL/ANESTHESIA PLAN: ASA II, Risks, benefits & alternatives of sedation and/or procedure discussed and Patient agrees to continue as planned
--- NOTE | 2024-09-25 07:56 | PM.PROC ---
Procedure Note: Date of procedure: 09/25/24 Pre-procedure diagnosis: Severe LV dysfunction abnormal stress test Post-procedure diagnosis: same Procedure: Left heart catheter was performed Left main: Normal Left circumflex large caliber dominant vessel without significant stenosis LAD large-caliber long vessel with high-grade mid 90% calcified stenosis which is the culprit vessel RCA nondominant but moderate-sized and caliber vessel with 70% stenosis PCI to mid LAD using GuideLiner, lesion with predilated with noncompliant balloon followed by drug-eluting stent 3.0 x 22 mmHg [place], it was postdilated with 3.5 x 12 mm noncompliant balloon. Excellent angiographic result with FREDY-3 flow noted at the end of the case, no complication noted. Plan: Patient was loaded with 600 mg Plavix and aspirin 325 mg Continue dual antiplatelet therapy for 1 year Patient is allergic to statin and refused to take Staged PCI to RCA as patient was not cooperative on the table and LAD was a difficult intervention due to calcified vessel therefore we are reaching upper limit of contrast and radiation. IV fluid 100 mL per per hour for [address] band in place Full note to be dictated Coding Level of Care Code Acute Code for [facility]
[2024-09-25] MEDS: metoprolol succinate ER (24 HR) 25 mg Tablet PO (08:23)
[2024-09-25] MEDS: pantoprazole 40 mg SDV IVP (08:23)
[2024-09-25] MEDS: FUROsemide 10 mg/mL SDV 4mL 40 MG IVP (09:33)
--- NOTE | 2024-09-25 09:58 | XR_ITS ---
WS: [id number] Portable AP semiupright chest, 09/25/2024 Clinical Data: sob Comparison: Portable chest, 09/19/2024 Findings: No nodules, masses or effusions are seen. The heart is normal. The pulmonary vascularity is not increased. No pneumonia or pneumothorax is seen. The aortic arch and descending thoracic aorta show tortuosity. The diaphragms are flattened. There are monitor leads on the chest wall. There are ch olecystectomy clips in the right upper quadrant. XR/XR chest 1V portable [id number] Impression: 1. Atherosclerosis. 2. Hyperinflation.
--- NOTE | 2024-09-25 10:12 | P.PN_ITS ---
<Statement entered by Yevgeniy Grewal MD - 09/27/24 15:53> Patient was evaluated and cared for in conjunction with an advanced practice practitioner. I personally examined the patient and reviewed the chart and all pertinent data including imaging, telemetry, and laboratory results. I discussed the patient in detail with the advanced practice practitioner. Please see their note for complete H&P testing result and agreed upon plan of care for the patient. Subjective 2 Subjective: She had coronary angiogram this morning: Normal left main, no significant stenosis of the left circumflex, significant mid LAD stenosis treated with balloon otoplasty and AMNA x 1. Nondominant RCA 70% stenosis plan for staged PCI. Vitals/I&O/Wt Last Vital Signs Temp 98.4 F 09/25/24 07:53 Pulse 113 H 09/25/24 08:38 Resp 25 H 09/25/24 08:38 BP 108/84 09/25/24 08:38 Pulse Ox 95 09/25/24 07:53 O2 Del Method Room Air 09/25/24 07:53 O2 Flow Rate 2 09/20/24 09:56 Weight last 48 hrs Weight 103 lb 4.8 oz Weight 105 lb 11.2 oz Physical Exam 2 Const: COMMON NORMALS: no acute distress and patient oriented x3 GENERAL APPEARANCE: cooperative ORIENTATION/CONSCIOUSNESS: Yes awake, Yes oriented to person, Yes oriented to place and Yes oriented to time Chest: COMMONS NORMALS: normal inspection of the chest and normal palpation of entire chest wall CHEST: Yes Symmetrical chest wall rise Resp: COMMON NORMALS: normal respiratory effort, No retractions and No use of accessory muscles EFFORT & INSPECTION: No labored AUSCULTATION: crackles Cardio: COMMON NORMALS: regular rate, regular rhythm, S1 normal heart sound present, S2 normal heart sound present, No gallops present (Cardio), No clicks present (Cardio), No murmurs present (Cardio) and No rub (Cardio) RATE: r egular rate RHYTHM: regular rhythm HEART SOUNDS: S1 normal heart sound present and S2 normal heart sound present PERIPHERAL PULSES: radial pulses present positive right 2+ and femoral pulses present positive right 2+ Neuro: COMMON NORMALS: patient oriented x3 and moves all extremities S ENSORIUM/ORIENTATION: Yes oriented to person, Yes oriented to place and Yes oriented to time Skin: WOUNDS: Yes surgical site (no hematoma palpable) Details: no odor Urinary Catheter Management: Martin: Cath Placed During This Visit: yes, but has since been removed by the nurse Reason for Continuing Indwelling Catheter: Decision to DC Catheter Urinary Catheter Date of Insertion: 09/19/24 Urinary Catheter Time of Insertion: 21:21 Date Urinary Catheter Removed: 09/21/24 Time Urinary Catheter Discontinued: 17:00 Data 09/25/24 03:48 09/25/24 03:48 A&P Assessment and plan 1. Coronary artery disease: 2. Mixed hyperlipidemia: 3. Cigarette smoker: 4. LV dysfunction: 5. Essential (primary) hypertension: Plan: I examined her after the procedure was completed and she was in C[facility]. She reported some subjective shortness of breath was not labored and oxygen saturation was normal. Order placed for Lasix 40 mg IV x 1, will discontinue IV fluids. Continue aspirin, Plavix. Declined statin. TR band in place. PDMP PDMP Reviewed: Not Reviewed Attestations 2 Medical Necessity Statement*: s/p PCI of the LAD Coding Level of Care Code Acute Code for [facility] Fwd Diagnoses Coronary artery disease I25.10 Mixed hyperlipidemia E78.2 Cigarette smoker F17.210 LV dysfunction I51.9 Essential (primary) hypertension I10
[2024-09-25 10:42] LABS: NT Pro B Type Natriuretic Pept 1379 pg/mL (0-450)
--- NOTE | 2024-09-25 12:32 | PC.SOCIAL ---
IMM Update Updated pt's daughter on IMM. No questions voiced. Provided pt a copy. Initialed, dated, & timed copy in chart.
[2024-09-25] MEDS: HYDROcodone-acetaminophen 5-325 mg Tablet 1 TAB PO ×2 (13:26→17:52)
--- NOTE | 2024-09-25 14:21 | PC.OT ---
Attempted skilled OT treatment. Pt declined at this time due to drowsiness from this morning procedure.
--- NOTE | 2024-09-25 15:10 | P.PN_ITS ---
Subjective 2 Subjective: Patient was seen this morning, after cardiac angiogram procedure, she had 1 stent placed to her LAD, currently she complains of shortness of breath, she has received Lasix, chest x-ray, BnP ordered, family members at bedside, discussed monitoring renal function, respiratory status closely Vitals/I&O/Wt Last Vital Signs Temp 98.2 F 09/25/24 12:00 Pulse 117 H 09/25/24 12:00 Resp 18 09/25/24 12:00 BP 120/73 09/25/24 12:00 Pulse Ox 93 09/25/24 12:00 O2 Del Method Nasal Cannula 09/25/24 12:00 O2 Flow Rate 2 09/25/24 12:00 09/25/24 09/25/24 09/25/24 06:59 14:59 22:59 Intake Total 240 / 240 Output Total 350 / 350 Balance -110 / -110 Weight last 48 hrs Weight 46.856 kg Weight 47.945 kg Physical Exam 2 Const: COMMON NORMALS: no acute distress and patient oriented x3 Resp: COMMON NORMALS: normal respiratory effort, No retractions and No use of accessory muscles AUSCULTATION: crackles Cardio: COMMON NORMALS: regular rate, regular rhythm, S1 normal heart sound present and S2 normal heart sound present RATE: regular rate RHYTHM: r egular rhythm HEART SOUNDS: S1 normal heart sound present and S2 normal heart sound present GI: COMMON NORMALS: Normal to inspection, nondistended, normoactive bowel sounds present and non-tender Extremity: COMMON NORMALS: no pedal edema Neuro: COMMON NORMALS: patient oriented x3 Psych: COMMON NORMALS: mental status grossly normal Urinary Catheter Management: Martin: Cath Placed During This Visit: yes, but has since been removed by the nurse Reason for Continuing Indwelling Catheter: Decision to DC Catheter Urinary Catheter Date of Insertion: 09/19/24 Urinary Catheter Time of Insertion: 21:21 Date Urinary Catheter Removed: 09/21/24 Time Urinary Catheter Discontinued: 17:00 Data 09/25/24 03:48 09/25/24 03:48 A&P Assessment and plan 1. Closed fracture of left hip, initial encounter: Status post ORIF Continue physical therapy. DVT prophylaxis Lovenox Continue hydrocodone 2. Cardiomyopathy: Echocardiogram showed EF of 30% with diffuse hypokinesis of left ventricle, mild to moderate concentric LVH, PASP of 56 mmHg. Continue start on Entresto 0.5 mg twice daily, metoprolol succinate 12.5 mg daily. Status post coronary angiography, PCI to mid LAD with AMNA, with plan staged PCI to RCA in the near future Aspirin, Plavix Intolerant to statin Cardiology consulted 3. Essential (primary) hypertension: 4. COPD (chronic obstructive pulmonary disease): Plan: Shortness of breath -Systolic CHF exacerbation - Concern for fluid overload, with underlying systolic CHF - Fluid therapy after coronary angiogram has been stopped - Has received Lasix therapy - Monitor urine output, monitor respiratory status Right knee pain with effusion : X-ray Joint effusion. There is significant narrowing (near [id number] posteriorly) of the medial knee joint space with irregular contour of the articular medial femoral condyle and tibial plateau with significant subchondral sclerosis and osteophytosis. Deformity of the medial tibial plateau could be due to previous old healed tibial plateau fracture no acute abnormality identified. Mild narrowing of the lateral knee joint space with mild subchondral sclerosis. Mild narrowing of the patellofemoral joint space with mild to moderate subchondral sclerosis and osteophytosis. Moderate opposing osteophytosis of the femoral condyles - Continue medical management Chronic obstructive pulmonary disease : Long-standing COPD; active smoker Chronic kidney disease : Monitor Hypertension : Monitor Osteoarthritis : Generalized osteoarthritis contributing to right-knee symptoms. Systemic lupus erythematosus : Recent diagnosis; currently managed with topical agents for pruritus. Maintain VTE prophylaxis. Irritable bowel syndrome : Chronic gastrointestinal condition causing intermittent ?goosy stomach.? Nicotine dependence : Smoking cessation counseling. Full code Cardiac diet. Lovenox for DVT prophylaxis Famotidine for PUD prophylaxis Plan for the day: Status post coronary angiography, status post stenting, IV diuresis PDMP PDMP Reviewed: Last Reviewed 09/23/24 13:08 EDT by Harris Zhou MD Attestations 2 Medical Necessity Statement*: Patient requires hospitalization for systolic CHF exacerbation, status post LAD stenting Diagnoses Closed fracture of left hip, initial encounter S72.002A Encounter type: initial encounter Fracture type: closed Laterality: left Cardiomyopathy I42.9 Essential (primary) hypertension I10 COPD (chronic obstructive pulmonary disease) J44.9
[2024-09-26] VITALS (7 sets, daily range): BP systolic 99–124; BP diastolic 48–64; PULSE 78–110; RESP 14–22; TEMP 36.1–36.8; O2SAT 87–99
[2024-09-26] MEDS: HYDROcodone-acetaminophen 5-325 mg Tablet 1 TAB PO (03:03)
[2024-09-26 03:09] LABS: Hematocrit 31.2 % (36-47); Hemoglobin 10.40 g/dL (11.27-16.99); Mean Corpuscular HGB Conc 33.3 g/dL (30-55); Mean Corpuscular Hemoglobin 30.7 pg (27-33); Mean Corpuscular Volume 92.0 fl (85-98); Nucleated Red Blood Cells % 0 %; Platelet Count 352 10^3/cmm (157-399); Red Blood Count 3.39 10^6/uL (3.85-5.65); White Blood Count 5.38 10^3/uL (3.29-11.43)
[2024-09-26 03:34] LABS: Anion Gap 13.9 (5-19); Blood Urea Nitrogen 32 mg/dL (8-23); Calcium 9.3 mg/dL (8.5-10.5); Carbon Dioxide 28 mmol/L (22-29); Chloride 98 mmol/L (98-107); Creatinine Clr Calc Pharmacy 39.6096; Glucose 112 mg/dL (65-115); Osmolality Calculated 290 mOsm/kg (285-295); Potassium 3.9 mmol/L (3.5-5.1); Sodium 136 mmol/L (136-145)
[2024-09-26 03:42] LABS: NT Pro B Type Natriuretic Pept 1470 pg/mL (0-450)
[2024-09-26] MEDS: metoprolol succinate ER (24 HR) 25 mg Tablet PO (08:38)
[2024-09-26] MEDS: pantoprazole 40 mg SDV IVP (08:38)
--- NOTE | 2024-09-26 09:20 | P.PN_ITS ---
<Statement entered by Yevgeniy Grewal MD - 09/27/24 15:50> Patient was evaluated and cared for in conjunction with an advanced practice practitioner. I personally examined the patient and reviewed the chart and all pertinent data including imaging, telemetry, and laboratory results. I discussed the patient in detail with the advanced practice practitioner. Please see their note for complete H&P testing result and agreed upon plan of care for the patient. Subjective 2 Subjective: She has done well overnight, s/p PCI of the LAD. She appears euvolemic today. No complications with right radial cath site. No chest pain or shortness of breath. Vitals/I&O/Wt Last Vital Signs Temp 97.7 F 09/26/24 07:54 Pulse 110 H 09/26/24 08:00 Resp 19 H 09/26/24 07:54 BP 124/60 09/26/24 07:54 Pulse Ox 92 09/26/24 08:00 O2 Del Method Nasal Cannula 09/26/24 08:00 O2 Flow Rate 1 09/26/24 08:00 09/25/24 09/26/24 09/26/24 22:59 06:59 14:59 Intake Total 2028.167 / 2269.167 Balance 2028.167 / 1919.167 Weight last 48 hrs Weight 100 lb 12.8 oz Weight 103 lb 4.8 oz Physical Exam 2 Const: COMMON NORMALS: no acute distress and patient oriented x3 GENERAL APPEARANCE: cooperative ORIENTATION/CONSCIOUSNESS: Yes awake, Yes oriented to person, Yes oriented to place and Yes oriented to time Chest: COMMONS NORMALS: normal inspection of the chest and normal palpation of entire chest wall CHEST: Yes Symmetrical chest wall rise Resp: COMMON NORMALS: normal respiratory effort, No retractions, No use of accessory muscles and clear to auscultation bilaterally AUSCULTATION: clear to auscultation bilaterally Cardio: COMMON NORMALS: regular rate, regular rhythm, S1 normal heart sound present, S2 normal heart sound present, No gallops present (Cardio), No clicks present (Cardio), No murmurs present (Cardio) and No rub (Cardio) RATE: r egular rate RHYTHM: regular rhythm HEART SOUNDS: S1 normal heart sound present and S2 normal heart sound present PERIPHERAL PULSES: radial pulses present positive right 2+ and femoral pulses present positive right 2+ Neuro: COMMON NORMALS: patient oriented x3 and moves all extremities S ENSORIUM/ORIENTATION: Yes oriented to person, Yes oriented to place and Yes oriented to time Skin: WOUNDS: Yes surgical site (no hematoma palpable) Details: no odor Urinary Catheter Management: Martin: Cath Placed During This Visit: yes, but has since been removed by the nurse Reason for Continuing Indwelling Catheter: Decision to DC Catheter Urinary Catheter Date of Insertion: 09/19/24 Urinary Catheter Time of Insertion: 21:21 Date Urinary Catheter Removed: 09/21/24 Time Urinary Catheter Discontinued: 17:00 Data 09/26/24 02:35 09/26/24 02:35 A&P Assessment and plan 1. Coronary artery disease: 2. Mixed hyperlipidemia: 3. Cigarette smoker: 4. LV dysfunction: 5. Essential (primary) hypertension: Plan: No chest pain post LAD intervention. Shortness of breath has resolved and she appears euvolemic today. She is able to discharge home, will bring her back in about 1 month for intervention on the RCA, once she has recovered from her hip fracture and corresponding surgery. In the meantime we will utilize Entresto 24/26 mg 1 tablet twice a day and metoprolol succinate, uptitrating to 37.5 mg daily as she is on the tachycardic side. Continue aspirin Plavix. She declines statin therapy. Follow-up in cardiology clinic in 7 to 10 days. PDMP PDMP Reviewed: Not Reviewed Attestations 2 Medical Necessity Statement*: Probable discharge home Coding Level of Care Code Acute Code for g Fwd Diagnoses Coronary artery disease I25.10 Mixed hyperlipidemia E78.2 Cigarette smoker F17.210 LV dysfunction I51.9 Essential (primary) hypertension I10
--- NOTE | 2024-09-26 09:54 | PC.CHAP ---
Pastoral Care Encounter/Spiritual Assessment Type of Contact [] Declined admissions manager rn visit [] Patient/Family/Request visit [] Outpatient visit [] Follow-up visit [] Physician referral [] Code/Alert [x] Routine visit [] Staff referral [] Actively dying [] Patient sleeping [] Family support [] [] Out of room [] Palliative care [] [] Receiving care in room [] Pre-surgical visit [] Trauma [] Long length of stay [] ICU visit [] Other: Relational/Emotional Strength [x] Patient feels connected with others/family/visitors/staff [x] Distress [] Loneliness/isolation [] Abandonment Spirituality of Patient [x] Person of Mayte [] Attends [employer] of their [place]te [x] Believes in Prayer [] Reads Bible or Tenriism materials [] There are Spiritual issues to be addressed Skill Training Program Coordinator Interventions [x] Prayer [x] Active listening [x] Non-anxious presence [x] Spiritual/emotional support [] Crisis/trauma care [] Spiritual counseling [] Bereavement support [] Provided bereavement packet [] Provided Bible/devotional materials [] Provided toy/stuffed animal, coloring book to patient or family member [] Provided Communion [] Anointing/Gable [] Salvation [x] Completed spiritual assessment [] Other: Impact on Illness or Injury [] Angry [] Fearful [] Anxious [] Often cries [] Exhaustion [] Unable to work [] Unable to attend restorationist [] Unable to walk/stand [] Unable to read [] Unable to drive [] Unable to eat/drink [] Unable to sleep [] Unable to be with family [] Patient intubated [] Other: Summary Time spent with patient 5 min
--- NOTE | 2024-09-26 10:54 | P.DS_ITS ---
Discharge Providers Date of Admission: 09/19/24 12:59 Date of Discharge: September 26, 2024 Attending Provider at Admission: Kyle Guerrero Attending Provider at Discharge: Harris Zhou MD Primary Care Provider: ESTELA Alicia Diagnoses at Discharge Discharge Diagnosis 1. Closed fracture of left hip, initial encounter: 2. Cardiomyopathy: 3. Essential (primary) hypertension: 4. COPD (chronic obstructive pulmonary disease): Reason for Visit Reason for Visit: left hip pain Hospital Course Hospital Course This is a 83-year-old female with a past medical history of CKD, COPD osteoarthritis, hypertension who presents to [facility] for a fall and left hip pain Patient was admitted to [facility] for left hip fracture, status post ORIF, tolerated surgery well, will be discharged on aspirin for DVT prophylaxis, follow-up with Dr. Vasquez as outpatient Patient was found to have cardiomyopathy EF of 30% with diffuse hypokinesis of the left ventricle, mild to moderate LVH, underwent coronary angiography with PCI with drug-eluting stent to mid LAD with planned PCI to RCA in the near future. Patient will be discharged on aspirin, Plavix, beta-nadeen with close follow-up with primary care provider as outpatient. Patient is intolerant to statin, and declines statin use. If recurrent chest pain please go to emergency room, follow-up with cardiology as outpatient Right knee pain with effusion, X-ray Joint effusion. There is significant narrowing (near [id number] posteriorly) of the medial knee joint space with irregular contour of the articular medial femoral condyle and tibial plateau with significant subchondral sclerosis and osteophytosis. Deformity of the medial tibial plateau could be due to previous old healed tibial plateau fracture no acute abnormality identified. Mild narrowing of the lateral knee joint space with mild subchondral sclerosis. Mild narrowing of the patellofemoral joint space with mild to moderate subchondral sclerosis and osteophytosis. Moderate opposing osteophytosis of the femoral condyles - Follow-up with orthopedic service Physical Exam Const: COMMON NORMALS: no acute distress and patient oriented x3 Resp: COMMON NORMALS: normal respiratory effort, No retractions, No use of accessory muscles and clear to auscultation bilaterally AUSCULTATION: clear to auscultation bilaterally Cardio: COMMON NORMALS: regular rate, regular rhythm, S1 normal heart sound present and S2 normal heart sound present RATE: regular rate RHYTHM: regular rhythm HEART SOUNDS: S1 normal heart sound present and S2 normal heart sound present GI: COMMON NORMALS: Normal to inspection, nondistended, normoactive bowel sounds present and non-tender Extremity: COMMON NORMALS: no pedal edema Neuro: COMMON NORMALS: patient oriented x3 Psych: COMMON NORMALS: mental status grossly normal Urinary Catheter Management: Martin: Cath Placed During This Visit: yes, but has since been removed by the nurse Reason for Continuing Indwelling Catheter: Decision to DC Catheter Urinary Catheter Date of Insertion: 09/19/24 Urinary Catheter Time of Insertion: 21:21 Date Urinary Catheter Removed: 09/21/24 Time Urinary Catheter Discontinued: 17:00 Discharge Data Studies Completed and Pending Completed Studies During Hospitalization Category Date Time Status Sestamibi Stress Test Request Routine Exams 09/22/24 10:43 Draft XR chest 1V portable [id number] Routine Exams 09/25/24 09:58 Completed XR chest 1V portable [id number] Stat Exams 09/19/24 11:03 Completed XR hip LT 2-3V wo/w pel* [id number] Stat Exams 09/19/24 10:42 Completed XR knee RT 1-2V [id number] Routine Exams 09/20/24 09:17 Completed XR pelvis 1-2V* [id number] Routine Exams 09/20/24 09:17 Completed NM cecily perf SPECT r/s* [id number] Routine Nuc Med 09/23/24 10:43 Completed CV. echo complete* [id number] Routine Ultrasound 09/19/24 16:34 Completed Pending at discharge Category Date Time Status FIRST AID NURSE request for service Routine Exams 09/25/24 05:00 Taken NT Pro B Type Natriuretic Pept QAM Lab 09/27/24 06:00 Ordered NT Pro B Type Natriuretic Pept QAM Lab 09/28/24 06:00 Ordered Radiology Impressions Hip/Pelvis X-Ray 09/19/24 10:42 IMPRESSION: Subcapital fracture as above. Knee X-Ray 09/20/24 09:17 IMPRESSION: Significant osteoarthritis as above. No acute abnormality identified. Pelvis X-Ray 09/20/24 09:17 IMPRESSION: Total left hip arthroplasty without abnormality. Chest X-Ray 09/25/24 09:58 Impression: 1. Atherosclerosis. 2. Hyperinflation. Laboratory Results WBC 5.38 10^3/uL (3.29-11.43) 09/26/24 02:35 RBC 3.39 10^6/uL (3.85-5.65) L 09/26/24 02:35 Hgb 10.40 g/dL (11.27-16.99) L 09/26/24 02:35 Hct 31.2 % (36-47) L 09/26/24 02:35 MCV 92.0 fl (85-98) 09/26/24 02:35 MCH 30.7 pg (27-33) 09/26/24 02:35 MCHC 33.3 g/dL (30-55) 09/26/24 02:35 RDW 13.9 % (12.1-15.1) 09/26/24 02:35 Plt Count 352 10^3/cmm (157-399) 09/26/24 02:35 MPV 9.0 fL (7.4-10.4) 09/26/24 02:35 Neut % (Auto) 59.6 % 09/26/24 02:35 Lymph % (Auto) 22.3 % 09/26/24 02:35 Banks % (Auto) 12.1 % 09/26/24 02:35 Eos % (Auto) 4.5 % 09/26/24 02:35 Baso % (Auto) 0.6 % 09/26/24 02:35 Neut # (Auto) 3.21 10^3/uL (1.8-7.7) 09/26/24 02:35 Lymph # (Auto) 1.2 10^3/uL (0.8-4.8) 09/26/24 02:35 Banks # (Auto) 0.7 10^3/uL (0.2-0.9) 09/26/24 02:35 Eos # (Auto) 0.2 10^3/uL (0.0-0.8) 09/26/24 02:35 Baso # (Auto) 0.0 10^3/uL (0.0-0.1) 09/26/24 02:35 Nucleated RBC % (auto) 0 % 09/26/24 02:35 Nucleated RBCs # 0.0 /100WBC 09/26/24 02:35 PT 12.90 SECONDS (12.1-14.9) 09/19/24 10:41 INR 0.90 (0.8-1.2) 09/19/24 10:41 APTT 29.2 SECONDS (23.9-36.7) 09/19/24 10:41 Sodium 136 mmol/L (136-145) 09/26/24 02:35 Potassium 3.9 mmol/L (3.5-5.1) 09/26/24 02:35 Chloride 98 mmol/L (98-107) 09/26/24 02:35 Carbon Dioxide 28 mmol/L (22-29) 09/26/24 02:35 Anion Gap 13.9 (5-19) 09/26/24 02:35 BUN 32 mg/dL (8-23) H 09/26/24 02:35 Creatinine 0.8 mg/dL (0.5-0.9) 09/26/24 02:35 GFR Calculation Not Reportable 09/26/24 02:35 Glucose 112 mg/dL (65-115) 09/26/24 02:35 Estimat Average Glucose 103 09/21/24 03:36 Hemoglobin A1c 5.2 % (4.0-6.0) 09/21/24 03:36 Calculated Osmolality 290 mOsm/kg (285-295) 09/26/24 02:35 Calcium 9.3 mg/dL (8.5-10.5) 09/26/24 02:35 Magnesium 1.8 mg/dL (1.7-2.3) 09/24/24 03:05 Iron 20 ug/dL (37-145) L 09/21/24 03:36 TIBC 282 mcg/dl 09/21/24 03:36 % Saturation 7.0 % (20-50) L 09/21/24 03:36 Unsat Iron Binding 262 ug/dL (112-347) 09/21/24 03:36 Total Bilirubin 0.5 mg/dL (0.15-1.2) 09/23/24 02:43 AST 26 U/L (0-32) 09/23/24 02:43 ALT 17 U/L (0-33) 09/23/24 02:43 Alkaline Phosphatase 70 U/L (35-105) 09/23/24 02:43 NT-Pro-B Natriuret Pep 1470 pg/mL (0-450) H 09/26/24 02:35 Total Protein 5.9 g/dL (6.6-8.7) L 09/23/24 02:43 Albumin 3.3 g/dL (3.5-5.2) L 09/23/24 02:43 Globulin 2.6 g/dL (1.3-4.6) 09/23/24 02:43 Triglycerides 95 mg/dL (0-150) 09/22/24 03:56 Cholesterol 154 mg/dL (0-200) 09/22/24 03:56 LDL Cholesterol, Calc 80 mg/dL (50-129) 09/22/24 03:56 Total VLDL Cholesterol 19 mg/dL (0-30) 09/22/24 03:56 HDL Cholesterol 55 mg/dL (60-100) L 09/22/24 03:56 Cholesterol/HDL Ratio 2.80 mg/dL (0.0-4.40) 09/22/24 03:56 Vitamin B12 422 pg/mL (232-1245) 09/21/24 03:36 Folate > 20.0 ng/mL (4.8-37.3) 09/22/24 03:56 TSH 0.71 uIU/mL (0.27-4.20) 09/21/24 03:36 Urine Color Yellow (Yellow) 09/19/24 11:55 Urine Appearance Clear (CLEAR) 09/19/24 11:55 Urine pH 8.0 (5-7) A 09/19/24 11:55 Ur Specific Homer 1.012 (1.005-1.030) 09/19/24 11:55 Urine Protein Negative (Negative) 09/19/24 11:55 Urine Glucose (UA) Negative (Normal) 09/19/24 11:55 Urine Ketones Negative (Negative) 09/19/24 11:55 Urine Blood Negative (Negative) 09/19/24 11:55 Urine Nitrate Negative (Negative) 09/19/24 11:55 Urine Bilirubin Negative (Negative) 09/19/24 11:55 Urine Urobilinogen 1.0 mg/dL (Negative) 09/19/24 11:55 Ur Leukocyte Esterase Negative (Negative) 09/19/24 11:55 Urine RBC 0-2 /hpf (0-2) 09/19/24 11:55 Urine WBC 0-5 /hpf (0-5) 09/19/24 11:55 Ur Squamous Epith Cells 0-5 /hpf (0-5) 09/19/24 11:55 Amorphous Sediment Not Reportable 09/19/24 11:55 Urine Bacteria None seen /hpf (NONE) 09/19/24 11:55 Hyaline Casts 0-4 /lpf H 09/19/24 11:55 Vitals Last Vital Signs Temp 97.7 F 09/26/24 07:54 Pulse 110 H 09/26/24 08:00 Resp 19 H 09/26/24 07:54 BP 124/60 09/26/24 07:54 Pulse Ox 92 09/26/24 08:00 O2 Del Method Nasal Cannula 09/26/24 08:00 O2 Flow Rate 1 09/26/24 08:00 Discharge Plan Discharge Patient Disposition: Home Health Service Condition: Stable Prescriptions: New nitroglycerin 0.4 mg Tablet, Sublingual 0.4 mg sublingual Q5M PRN (Reason: Chest Pain) 30 Days Qty: 30 0RF metoprolol succinate 25 mg Tablet Extended Release 24 Hr 37.5 mg PO DAILY 30 Days Qty: 90 0RF Entresto 24-26 mg Tablet 1 tab PO BID 30 Days Qty: 60 0RF clopidogrel 75 mg Tablet 75 mg PO DAILY 30 Days Qty: 30 0RF hydrocodone-acetaminophen 5-325 mg tablet 1 tab PO Q6H PRN (Reason: pain) 5 Days Qty: 20 0RF Continued diclofenac sodium [Voltaren Arthritis Pain] 1 % gel 2 g topical QID Qty: 100 0RF Rx Instructions: apply to single elbow, wrist or hand; for hand includes palm/fingers/back of hand Qvar RediHaler 80 mcg/actuation HFA aerosol breath activated 1 inh inhalation Q12H Qty: 10.6 5RF Rx Instructions: administer with spacer fenofibrate nanocrystallized 145 mg tablet 145 mg PO DAILY Qty: 90 1RF acetaminophen [Tylenol] 325 mg Tablet 650 mg PO QID PRN (Reason: Fever Or Pain) multivit with min-folic acid 0.4 mg Tablet 1 tab PO DAILY aspirin [Lorenzo Low Dose Aspirin] 81 mg Tablet,Delayed Release (Dr/Ec) 81 mg PO DAILY 30 Days Qty: 30 0RF Discontinued propranolol [Inderal LA] 60 mg capsule,extended release 24 hr 60 mg PO DAILY Qty: 90 1RF clomipramine 75 mg capsule 75 mg PO DAILY Qty: 30 11RF naproxen sodium [Aleve] 220 mg Tablet 220 mg PO Q12H PRN (Reason: Fever Or Pain) Dry Room Attendant OK for DC: Cardiology Other Ambulatory Orders: DME: Shower Chair (Order) Location: None Selected Ordered By: Harris Zhou DME: Miscellaneous (Order) Location: None Selected Ordered By: Harris Zhou DME: Walker (Order) Location: None Selected Ordered By: Kyle Guerrero Referrals: [facility] [Outside] [facility] [Outside] Felisa Matta NP [Nurse Practitioner, Cardiology] - 10/03/24 8:30 am Ever Vasquez DO [Physician, Orthopedics] - 10/08/24 8:30 am Carlos Mittal FNP-C [Primary Care Provider, Family Practice] - 10/02/24 1:40 pm Yevgeniy Godinez MD [Physician, Cardiology] - 2 weeks Referral Note: After your appointment your appointment with Felisa SLOAN, you will be scheduled with Dr. godinez. Discharge Diet: Cardiac Discharge Activity: Resume usual activity Patient Instructions: Metoprolol (By mouth) (Lopressor, Toprol XL), Nitroglycerin (By mouth), Hydrocodone/Acetaminophen (By mouth), Sacubitril/Valsartan (By mouth) (Entresto, Entresto Sprinkle), Coronary Angioplasty (DC), Acute Wound Care (DC), Opioid Safety, Post Anesthesia Care, Post Angiogram Home Care Instructions, Patient Portal & Dequan Instructions Activity Restrictions/Additional Instructions: - Please take aspirin, Plavix as prescribed, as they are keeping your heart stent open -If you have any significant fall, head trauma, or bloody black stools these are emergencies please go to the emergency room -Please follow-up with cardiology -If any chest pain please go to the emergency room -Follow-up with Dr. Vasquez You are being discharged from the hospital today during which time you have been under the care of Dr. Vasquez. You had a left hip fracture. You were treated for this injury with left hip hemiarthroplasty. You may resume you normal diet (including any special diets as directed by your primary doctor) as well as your home medications. You should follow up with you primary doctor if you have any questions regarding medication you took prior to your stay in the hospital. You may take your pain medication as prescribed. After the first few days, take your pain medication as needed. Do not drive or drink alcohol while taking your pain medication. Your injury may increase your risk of developing a blood clot,or DVT, in your arm or leg. This could potentially dislodge and travel to your lungs and become a life threatening condition called apulmonary embolus,or PE. You have been prescribed aspirin to be taken to prevent this. Frequent movement of the legs will also help prevent this from occurring. If you develop any new or worsening cough, chestpain, bloody sputum or shortness of breath, call 911 or go to the Em [facility]. Always keep your surgical incision/dressing clean and dry. If you experience increasing pain at your incision site, redness, swelling, increasing discharge, foul odors, or fevers (greater than 100.4), night sweats or chills you should call the office at the above number. If you feel this is an emergency you should be evaluated in the Emergency Department of a nearby hospital. Orthopedic Patient Instructions Summary: Weight Bearing: Weight-bear as tolerated Activity: As tolerated. Diet: Regular. Wound Care: Keep dressing clean and dry. Anticoagulation: Aspirin Pain Medication: Take only as needed. Ice, rest and elevation will be of great benefit. Please plan to follow-up delmer Vasquez in 2 weeks. You will need to call the clinic [phone] to schedule this visit. Thank you far allowing me to participate in your care. Do not hesitate to call the office with any questions or concerns. Discharge Attestations Time Spent in Discharge Care*: greater than 30 min Quality Metrics Clinical Quality Measures [ No reported AMI, CVA or VTE this stay] Coding Level of Care Code 13459 Total time (in minutes) for Discharge: 45 Diagnoses Closed fracture of left hip, initial encounter S72.002A Encounter type: initial encounter Fracture type: closed Laterality: left Cardiomyopathy I42.9 Essential (primary) hypertension I10 COPD (chronic obstructive pulmonary disease) J44.9
[2024-09-26] MEDS: metoprolol succinate ER (24 HR) 25 mg Tablet 12.5 MG PO (11:29)
== END 2024-09-26 15:29 | disposition home health service (06) | DRG 521 ==
LOC: ER 11:53 → MEDSURG 12:59 → CSU 09-23 19:08
PROVIDERS: Internal Medicine Cardiovascular Disease; Orthopaedic Surgery; Student in an Organized Health Care Education/Training Program; Admitting Provider Internal Medicine; Emergency Provider Emergency Medicine; PCP Nurse Practitioner; Visit Provider Family Medicine
PROC: 0SRR0JZ Replacement of Right Hip Joint, Femoral Surface with Synthetic Substitute, Open Approach (ICD-10-PCS; principal; 2024-09-20 08:40)
PROC: 027034Z Dilation of Coronary Artery, One Artery with Drug-eluting Intraluminal Device, Percutaneous Approach (ICD-10-PCS; principal; 2024-09-25 06:00)
PROC: 027034Z Dilation of Coronary Artery, One Artery with Drug-eluting Intraluminal Device, Percutaneous Approach (ICD-10-PCS; 2024-09-25 06:00)
DX: S72.012A Unspecified intracapsular fracture of left femur, initial encounter for closed fracture (principal); I50.23 Acute on chronic systolic (congestive) heart failure; I42.9 Cardiomyopathy, unspecified; I13.0 Hypertensive heart and chronic kidney disease with heart failure and stage 1 through stage 4 chronic kidney disease, or unspecified chronic kidney disease; E87.1 Hypo-osmolality and hyponatremia; W01.0XXA Fall on same level from slipping, tripping and stumbling without subsequent striking against object, initial encounter; Y92.096 Garden or yard of other non-institutional residence as the place of occurrence of the external cause; N18.9 Chronic kidney disease, unspecified; J44.9 Chronic obstructive pulmonary disease, unspecified; M32.9 Systemic lupus erythematosus, unspecified; M17.11 Unilateral primary osteoarthritis, right knee; K58.9 Irritable bowel syndrome, unspecified; F17.210 Nicotine dependence, cigarettes, uncomplicated; I34.0 Nonrheumatic mitral (valve) insufficiency; I27.20 Pulmonary hypertension, unspecified; Z79.82 Long term (current) use of aspirin; I25.10 Atherosclerotic heart disease of native coronary artery without angina pectoris
CPT/HCPCS: 36415; 51702; 71045; 72170; 73501; 73502; 73560; 78452; 80048; 80053; 80061; 81001; 82607; 82746; 83036; 83540; 83550; 83735; 83880; 84443; 85025; 85347; 85610; 85730; 93005; 93017; 93306; 93454; 94760; 96372; 96375; 97110; 97116; 97162; 97165; 97530; 97535; 99152; 99153; 99285; A9500; C1725; C1769; C1776; C1874; C1887; C1894; C9600; J1100; J1644; J1650; J1938; J2250; J2270; J2371; J2405; J2470; J2704; J2785; J3010; J3490; J7030; J7120; J9999; Q0163; Q9967

== ENCOUNTER 2024-09-30 16:23 | Outpatient (CLI) | payer MEDICARE, SELFPAY ==
--- NOTE | 2024-09-30 14:30 | USR_ITS ---
PROCEDURE INFORMATION: Exam: US Duplex Left Lower Extremity Veins, Limited Exam date and time: 09/30/2024 4:34 PM Age: 84 years old Clinical indication: Edema, localized; Lower extremity, left; Prior surgery; Surgery date: <1 month; Surgery type: Hip surgery; Additional info: R60.0 - localized edema, she is post surgical left hip 1 week ago TECHNIQUE: Imaging protocol: Real-time duplex ultrasound of the left extremity with 2-D guthrie scale, color Doppler flow and spectral waveform analysis including responses to compression and other maneuvers (when performed) with image documentation. Limited exam focused on the left lower extremity veins. COMPARISON: [place] [id number] 12/01/2023 11:34 AM FINDINGS: Left deep veins: Unremarkable. The common femoral, femoral, proximal profunda femoral and popliteal veins are patent without thrombus. Normal Doppler waveforms. Normal compressibility and/or augmentation response. Superficial veins: Greater saphenous vein at the saphenofemoral junction is patent without thrombus. Soft tissues: Unremarkable. US/CV venous duplex [facility] [id number] IMPRESSION: No evidence of deep vein thrombosis.
== END 2024-09-30 16:24 | disposition home or self-care (01) ==
LOC: RAD 16:23
PROVIDERS: PCP Nurse Practitioner; Visit Provider Clinical Nurse Specialist Adult Health
DX: R60.0 Localized edema (principal); R39.9 Unspecified symptoms and signs involving the genitourinary system; N39.0 Urinary tract infection, site not specified
CPT/HCPCS: 81000; 87077; 87086; 87184; 93971

== ENCOUNTER → 2024-10-03 08:33 | Outpatient (BNVA) | payer MEDICARE, SELFPAY | PROVIDERS: PCP Nurse Practitioner; Visit Provider Nurse Practitioner Family | DX: I51.9 Heart disease, unspecified (principal); I10 Essential (primary) hypertension; I25.10 Atherosclerotic heart disease of native coronary artery without angina pectoris; E78.2 Mixed hyperlipidemia; I42.9 Cardiomyopathy, unspecified; R94.39 Abnormal result of other cardiovascular function study; N39.0 Urinary tract infection, site not specified; Z79.02 Long term (current) use of antithrombotics/antiplatelets; Z79.82 Long term (current) use of aspirin; Z95.5 Presence of coronary angioplasty implant and graft; Z87.891 Personal history of nicotine dependence | CPT/HCPCS: 99214 ==

== ENCOUNTER → 2024-10-08 08:38 | Outpatient (BNVA) | payer MEDICARE, SELFPAY | PROVIDERS: PCP Nurse Practitioner; Visit Provider Orthopaedic Surgery | DX: Z98.890 Other specified postprocedural states (principal) | CPT/HCPCS: 73502; 99024 ==

== ENCOUNTER → 2024-10-22 13:41 | Outpatient (BNVA) | payer MEDICARE, SELFPAY | PROVIDERS: PCP Nurse Practitioner; Visit Provider Orthopaedic Surgery | DX: Z98.890 Other specified postprocedural states (principal) | CPT/HCPCS: 99024 ==

== ENCOUNTER → 2024-11-05 14:05 | Outpatient (BNVA) | payer MEDICARE, SELFPAY | PROVIDERS: PCP Nurse Practitioner; Visit Provider Orthopaedic Surgery | DX: Z98.890 Other specified postprocedural states (principal) | CPT/HCPCS: 73502; 99024 ==

== ENCOUNTER → 2024-11-07 08:04 | Outpatient (BNVA) | payer MEDICARE, SELFPAY | PROVIDERS: PCP Nurse Practitioner; Visit Provider Nurse Practitioner | DX: I10 Essential (primary) hypertension (principal) | CPT/HCPCS: 80053; 85025 ==

== ENCOUNTER 2024-11-13 07:43 | Outpatient (CLI) | payer MEDICARE, SELFPAY ==
[2024-11-13 07:30] VITALS: BP 149/91; PULSE 93; RESP 18; TEMP 37; O2SAT 100; BMI 18.3
--- NOTE | 2024-11-13 10:14 | P.PN_ITS ---
Subjective Subjective: Today patient is here for planned staged PCI of RCA because of LV dysfunction non-STEMI she underwent left heart cath and September of this year she was noted to have significant LAD lesion treated with drug-eluting stent at that time it was thought that the patient has symptoms she will be staged for RCA. Today patient came back she is on optimal medical regimen and denies any complaint including chest pain shortness of breath. Since she is feeling better she is on optimal medical regimen and it is a nondominant RCA with moderate lesion at this point we will defer PCI and consider continuing medical management. She will follow- up in clinic on regular basis. Vitals/I&O/Wt Last Vital Signs Temp 98.6 F 11/13/24 07:30 Pulse 93 11/13/24 07:30 Resp 18 11/13/24 07:30 BP 149/91 11/13/24 07:30 Pulse Ox 100 11/13/24 07:30 O2 Del Method Room Air 11/13/24 07:30 Weight last 48 hrs Weight 100 lb A&P PDMP PDMP Reviewed: Not Reviewed Attestations Medical Necessity Statement*: Patient can be discharged home Coding Level of Care Code Acute Code for Chg Bianca
--- NOTE | 2024-11-13 10:20 | PC.NURSE ---
dr godinez and pt discussed procedure planned for today. after a thorough assessment and discussion it was decided to forgo the procedure and proceed with medical management.
== END 2024-11-13 07:44 | disposition home or self-care (01) ==
PROVIDERS: PCP Nurse Practitioner; Visit Provider Internal Medicine Cardiovascular Disease
DX: Z53.8 Procedure and treatment not carried out for other reasons (principal)
CPT/HCPCS: J1644; J2250; J3010; J3490; J7030; J9999; Q0163

== ENCOUNTER → 2024-12-12 11:02 | Outpatient (BNVA) | payer MEDICARE, SELFPAY | PROVIDERS: PCP Nurse Practitioner; Visit Provider Clinical Nurse Specialist Adult Health | DX: N39.0 Urinary tract infection, site not specified (principal); R50.9 Fever, unspecified | CPT/HCPCS: 81000; 85025; 86140; 87086 ==

== ENCOUNTER 2024-12-18 08:58 | Observation (INO) | payer MEDICARE, SELFPAY ==
[2024-12-18] VITALS (19 sets, daily range): BP systolic 110–152; BP diastolic 51–90; PULSE 79–111; RESP 16–103; TEMP 36.4–37.7; O2SAT 90–96; BMI 17.4
--- OUTSIDE RECORDS SUMMARY | 2024-12-18 09:16 | XMS_ITS | Clinical Summary ---
Author Organization [employer] Address [address] 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
--- OUTSIDE RECORDS SUMMARY | 2024-12-18 09:16 | XMS_ITS | Encounter Summary ---
Author Organization [facility] Address [address] [place] [address] Care Team Providers Care Embalmer Assistant Name Role Phone Unavailable Primary Care Provider Unavailabl e Encounter Details Date Type Department Care Team (Latest Contact Info) Description 07/02/1997 Outpatient Historical [facility]3] General and Trauma Surgery-[place] [address] [place] [address] Chevy Kumar MD NO ADDRESS ON FILE Chronic cholecystitis (Primary Dx) Social History Tobacco Use Types Packs/Day Years Used Date Smoking Tobacco: Never Assessed Comments Unknown Sex and Gender Information Value Date Recorded Sex Assigned at Not on file 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
[2024-12-18 09:19] LABS: Mean Corpuscular HGB Conc 32.5 g/dL (30-55); Mean Corpuscular Hemoglobin 28.3 pg (27-33); Mean Corpuscular Volume 87.0 fl (85-98); Nucleated Red Blood Cells % 0 %; Platelet Count 384 10^3/cmm (157-399); Red Blood Count 2.23 10^6/uL (3.85-5.65); White Blood Count 4.38 10^3/uL (3.29-11.43)
[2024-12-18 09:45] LABS: INR 1.07 (0.8-1.2); Prothrombin Time 14.60 SECONDS (12.1-14.9)
[2024-12-18 09:46] LABS: Partial Thromboplastin Time 36.4 SECONDS (23.9-36.7)
--- NOTE | 2024-12-18 09:49 | ED_ITS ---
HPI - GI Bleed 2 General: Chief complaint: GI Bleed Stated complaint: GI Bleed Time Seen by Provider: 12/18/24 09:01 History of Present Illness: 84-year-old female extensive cardiac his tory on aspirin and Plavix, diverticulosis in the past, internal and external hemorrhoids, presenting to the emergency department with bright red blood per rectum x 1 day several episodes with increasing weakness x 1 week, diagnosed with possible E. coli UTI few days ago and started on an unknown antibiotic, patient denies any urinary symptoms since onset of weakness a week ago, no fever, no chest pain, mild abdominal discomfort. Related Data Home Medications ?Medication ?Instructions ?Recorded ?Confirmed acetaminophen 325 mg tablet 650 mg PO QID PRN Fever Or Pain 09/19/24 12/18/24 (Tylenol) multivitamin with minerals-folic 1 tab PO DAILY 12/18/24 acid 0.4 mg tablet clomipramine 75 mg capsule 75 mg PO QAM 12/18/2412/18 escitalopram oxalate 10 mg tablet See Rx Instructions .Route .COMPLEX 12/18/24 12/18/24 fenofibrate nanocrystallized 145 72.5 mg PO DAILY 07/0712/18/24 mg tablet metoprolol succinate 25 mg 25 mg PO DAILY 12/18/2407/07 tablet,extended release 24 hr nitroglycerin 0.4 mg sublingual See Rx Instructions .R oute .COMPLEX 12/18/24 12/18/24 tablet sacubitril 24 mg-valsartan 26 mg 1 tab PO QPM 12/18/24 12/18/24 tablet (Entresto) Previous Rx's ?Medication ?Instructions ?Recorded aspirin 81 mg tablet,delayed 81 mg PO DAILY pain 30 da ys #30 09/26/24 release (Lorenzo Low Dose Aspirin) tabs clopidogrel 75 mg tablet 75 mg PO DAILY #90 tabs 09/14 03/09 cefdinir 300 mg capsule 300 mg PO Q12H #14 caps 11/15 Allergies Allergy/AdvReac Type Severity Reaction Status Date / Time atorvastatin (From Lipitor) Allergy Unknown Unknown Verified 12/13/24 17:16 azithromycin Allergy Unknown Unknown Verified 12/13/24 17:16 levofloxacin (From Levaquin) Allergy Unknown Unknown Verified 12/13/24 17:16 Penicillins Allergy Unknown Unknown Verified 12/13/24 17:16 phenobarbital Allergy Unknown Unknown Verified 12/13/24 17:16 penbutolol Allergy Unknown Verified 12/13/24 17:16 macrobid AdvReac Severe Heart Uncoded 12/13/24 17:16 races, severe breathing, N & V PFSH ED 2 PFSH: Medical History Coronary artery disease Psychiatric care Cigarette smoker Chronic idiopathic constipation COPD (chronic obstructive pulmonary disease) OA (osteoarthritis) CKD (chronic kidney disease) Environmental and seasonal allergies Essential (primary) hypertension Surgical History History of hysterectomy Family History Other Nicotine dependence Social History Smoking and tobacco/nicotine status: former use of tobacco/nicotine Second hand smoke exposure: Yes Alcohol intake: never Substance/Drug Use: never Adopted: No Caregiver/support person: No Lives independently: Yes Household members: spouse Housing: House Marital status: service: No Do you think of yourself as: Straight/Heterosexual Current gender identity: Female Physical Exam 2 Narrative: EXAM NARRATIVE: Gen: A&Ox4, no acute distress, nontoxic appearing HEENT: Normocephalic, atraumatic, no scleral icterus, external ears normal, moist mucous membranes Neck: Supple, full range of motion, no observable masses Lungs: No Respiratory distress, Lungs clear to auscultation bilaterally no rales, rhonchi, wheezing CV: Regular rate and rhythm, no murmur, no pitting edema to lower extremities bilaterally Abdomen: Soft, nondistended, minimally tender to right lower and left lower quadrant to palpation without rebound guarding or distention MSK: No joint swelling, FROM all 4 extremities Skin: No rashes, petechiae, lesions. Mildly pale per patient Neuro: Alert and oriented, no slurred speech, sensation and strength grossly intact all 4 extremities Psych: Appropriate for situation. Course 2 Consultations: Consultation #1: Spoke with Dr. Herman of general surgery who agrees to see the patient in consultation and will plan on performing scope tomorrow after prep completed, recommends hospitalist admission Time: 12:05 Consultation #2: Spoke with Dr. Reveles of [facility] who will accept patient to [facility] Time: 12:15 Vital Signs: Vital signs: Vital Signs Temperature 98.8 F 12/18/24 13:58 Pulse Rate 80 12/18/24 13:58 Respiratory Rate 16 12/18/24 13:58 Blood Pressure 135/74 12/18/24 13:58 Pulse Oximetry 92 12/18/24 13:58 Oxygen Delivery Me thod Room Air 12/18/24 13:45 MDM - GI Bleed Medical Decision Making 84-year-old female history of hypertension, hyperlipidemia, COPD, lupus, heart failure/pulmonary hypertension/CAD on cardiac medications including aspirin and Plavix, recently diagnosed with possible cystitis, presenting the emergency room with 1 week history of nonspecific weakness as well as a 1 day history of multiple episodes of significantly bloody stool with passage of blood clots, photos of the bowel movements provided by family member initial bowel movements appeared red and bloody but most recent 1 with increased amount of blood and more of a dark appearance with mostly clot and little amount of feces, she does have some mild tenderness to lower abdomen will obtain CT scan to assess for bleeding source and also to rule out diverticulitis as a possible causative agent, labs to assess degree of anemia, reassess for disposition Lab Data Labs significant for marked anemia 6.3 acute since a week ago with a drop of 3 points from 9.3, no GIANFRANCO, no leukocytosis, normal LFTs 12/18/24 09:05 12/18/24 09:05 Radiology Impressions Abdomen/Pelvis CTA 12/18/24 10:01 IMPRESSION: Images in the pelvis degraded due to beam hardening artifact from LEFT FERNANDO 1. Normal caliber abdominal aorta with dense vascular calcification. Celiac and SMA are patent. 2. No evidence of active contrast extravasation in the sigmoid colon. 3. Mild wall thickening in the sigmoid colon although poorly evaluated due to beam hardening artifact LEFT FERNANDO. Diverticulosis. Recommend correlation for acute diverticulitis 4. Moderate pancolonic constipation. 5. Moderate esophageal hiatal hernia 6. No other acute findings. Laboratory Results WBC 4.38 10^3/uL (3.29-11.43) 12/18/24 09:05 RBC 2.23 10^6/uL (3.85-5.65) L 12/18/24 09:05 Hgb 6.30 g/dL (11.27-16.99) L* 12/18/24 09:05 Hct 19.4 % (36-47) L* 12/18/24 09:05 MCV 87.0 fl (85-98) 12/18/24 09:05 MCH 28.3 pg (27-33) 12/18/24 09:05 MCHC 32.5 g/dL (30-55) 12/18/24 09:05 RDW 13.2 % (12.1-15.1) 12/18/24 09:05 Plt Count 384 10^3/cmm (157-399) 12/18/24 09:05 MPV 8.0 fL (7.4-10.4) 12/18/24 09:05 Neut % (Auto) 73.9 % 12/18/24 09:05 Lymph % (Auto) 15.1 % 12/18/24 09:05 [place] % (Auto) 8.7 % 12/18/24 09:05 Eos % (Auto) 2.1 % 12/18/24 09:05 Baso % (Auto) 0.0 % 12/18/24 09:05 Neut # (Auto) 3.24 10^3/uL (1.8-7.7) 12/18/24 09:05 Lymph # (Auto) 0.7 10^3/uL (0.8-4.8) L 12/18/24 09:05 [place] # (Auto) 0.4 10^3/uL (0.2-0.9) 12/18/24 09:05 Eos # (Auto) 0.1 10^3/uL (0.0-0.8) 12/18/24 09:05 Baso # (Auto) 0.0 10^3/uL (0.0-0.1) 12/18/24 09:05 Nucleated RBC % (auto) 0 % 12/18/24 09:05 Nucleated RBCs # 0.0 /100WBC 12/18/24 09:05 PT 14.60 SECONDS (12.1-14.9) 12/18/24 09:05 INR 1.07 (0.8-1.2) 12/18/24 09:05 APTT 36.4 SECONDS (23.9-36.7) 12/18/24 09:05 Sodium 132 mmol/L (136-145) L 12/18/24 09:05 Potassium 3.9 mmol/L (3.5-5.1) 12/18/24 09:05 Chloride 100 mmol/L (98-107) 12/18/24 09:05 Carbon Dioxide 22 mmol/L (22-29) 12/18/24 09:05 Anion Gap 13.9 (5-19) 12/18/24 09:05 BUN 22 mg/dL (8-23) 12/18/24 09:05 Creatinine 0.7 mg/dL (0.5-0.9) 12/18/24 09:05 GFR Calculation Not Reportable 12/18/24 09:05 Glucose 110 mg/dL (65-115) 12/18/24 09:05 Calculated Osmolality 278 mOsm/kg (285-295) L 12/18/24 09:05 Calcium 8.8 mg/dL (8.5-10.5) 12/18/24 09:05 Total Bilirubin 0.2 mg/dL (0.15-1.2) 12/18/24 09:05 AST 12 U/L (0-32) 12/18/24 09:05 ALT 9 U/L (0-33) 12/18/24 09:05 Alkaline Phosphatase 73 U/L (35-105) 12/18/24 09:05 Total Protein 5.8 g/dL (6.6-8.7) L 12/18/24 09:05 Albumin 3.0 g/dL (3.5-5.2) L 12/18/24 09:05 Globulin 2.8 g/dL (1.3-4.6) 12/18/24 09:05 Lipase 22 U/L (13-60) 12/18/24 09:05 Blood Type O Positive 12/18/24 09:05 Rho(D) Type Rh positive 12/18/24 09:05 Antibody Screen Negative 12/18/24 09:05 Crossmatch See Detail 12/18/24 09:05 All radiology interpretation(s) finalized by discharge ED provider radiology interpretation(s): CTA bleeding scan with no active extravasation or obvious mass Critical Care Time 2 Critical Care Time: Critical Care Time: Yes Total Critical Care Time: 35 Attestation: This case had a high probability of a clinically significant, sudden, or life threatening deterioration of this patient's condition which required my full and direct attention, intervention and personal management. Discharge Plan Discharge Patient Disposition: Admitted As Inpatient Admit Provider: Tony Reveles Clinical Impression: Lower gastrointestinal hemorrhage Condition: Stable Coding Level of Care Code ED Cage Manager for Guera Valenzuela
[2024-12-18 09:50] LABS: Alanine Aminotransferase 9 U/L (0-33); Albumin Level 3.0 g/dL (3.5-5.2); Alkaline Phosphatase 73 U/L (35-105); Anion Gap 13.9 (5-19); Aspartate Amino Transferase 12 U/L (0-32); Blood Urea Nitrogen 22 mg/dL (8-23); Calcium 8.8 mg/dL (8.5-10.5); Carbon Dioxide 22 mmol/L (22-29); Chloride 100 mmol/L (98-107); Creatinine Clr Calc Pharmacy 37.6893; Globulin 2.8 g/dL (1.3-4.6); Glucose 110 mg/dL (65-115); Lipase 22 U/L (13-60); Osmolality Calculated 278 mOsm/kg (285-295); Potassium 3.9 mmol/L (3.5-5.1); Sodium 132 mmol/L (136-145); Total Protein 5.8 g/dL (6.6-8.7)
--- NOTE | 2024-12-18 10:01 | CT_ITS ---
WS: [id number] CTA ABDOMEN PELVIS TECHNIQUE: Noncontrast plus contrast enhanced CTA of the abdominal aorta with coronal and sagittal reformatted images and additional MIP Images. CLINICAL INFORMATION: significant melena/rectal bleeding, hx diverticulosis, COMPARISON: CT 12/01/2023 DLP: 225.[address] scans at [facility] use at least one of these dose optimization techniques: automated exposure control; mA and/or kV adjustment per patient size (includes targeted exams where dose is matched to clinical indication); or iterative reconstruction. FINDINGS: Moderate aortic calcification celiac and SMA are patent with mild calcification of the origin. No abdominal aortic aneurysm. Common iliac calcification. ELMER is patent. Sigmoid diverticulosis. Moderate fecal retention in the colon. Mild wall thickening in the sigmoid colon although poorly evaluated due to CTA protocol and beam hardening artifact from LEFT FERNANDO. No visualized active contrast extravasation in the sigmoid colon. Markedly advanced emphysematous changes lung bases. Moderate esophageal hiatal hernia. No hydronephrosis in either kidney. Small renal cysts. Hepatomegaly. Enlarged LEFT hepatic lobe. Heterogeneous patchy enhancement in the LEFT hepatic lobe likely due to arterial protocol. Moderate spondylitic changes lumbar spine. 8 mm calcification LEFT eccentric spinal canal at the T12 level unchanged. CT/CT angio abdomen pelvis [id number] IMPRESSION: Images in the pelvis degraded due to beam hardening artifact from L EFT FERNANDO 1. Normal caliber abdominal aorta with dense vascular calcification. Celiac an d SMA are patent. 2. No evidence of active contrast extravasation in the sigmoid colon. 3. Mild wall thickening in the sigmoid colon although poorly evaluated due to beam hardening artifact LEFT FERNANDO. Diverticulosis. Recommend correlation for acu te diverticulitis 4. Moderate pancolonic constipation. 5. Moderate esophageal hiatal hernia 6. No other acute findings.
[2024-12-18 10:12] LABS: Hemoglobin 6.30 g/dL (11.27-16.99)
[2024-12-18 10:13] LABS: Hematocrit 19.4 % (36-47)
[2024-12-18] MEDS: iohexol 350 mg/mL 500 mL Btl (per mL) IV (10:27)
--- NOTE | 2024-12-18 12:50 | PM.CONSULT ---
Providers/Reason For Consult Consulting Physician/Specialty*: Dr. Herman general surgery Reason for Consult*: Hematochezia Attending Physician: Tony Reveles MD Primary Care Provider: ESTELA Alicia History of Present Illness History of Present Illness Brielle Turpin is a 84 year old female who presented with hematochezia. History of coronary artery disease on aspirin Plavix. Had a cardiac stent placed in September 2024. History of heart failure. Reports chronic constipation. [id number] at bedside. Daughter was present for the discussion via telephone call. Patient does disimpact herself regularly. Medications/Allergies Home Medications ?Medication ?Instructions ?Recorded ?Confirmed ?Last Taken ?Type acetaminophen 325 mg tablet 650 mg PO QID PRN Fever Or Pain 09/19/24 12/18/24 11/12/24 20:30 History (Tylenol) multivitamin with minerals-folic 1 tab PO DAILY 09/19/24 12/18/24 12/17/24 History acid 0.4 mg tablet aspirin 81 mg tablet,delayed 81 mg PO DAILY pain 30 days #30 09/26/24 12/18/24 12/17/24 Rx release (Lorenzo Low Dose Aspirin) tabs clopidogrel 75 mg tablet 75 mg PO DAILY #90 tabs 10/03/24 12/18/24 12/17/24 Rx cefdinir 300 mg capsule 300 mg PO Q12H #14 caps 12/12/24 12/18/24 12/17/24 Rx clomipramine 75 mg capsule 75 mg PO QAM 12/18/24 12/18/24 12/17/24 History escitalopram oxalate 10 mg tablet See Rx Instructions .Route .COMPLEX 12/18/24 12/18/24 Unknown History fenofibrate nanocrystallized 145 72.5 mg PO DAILY 12/18/24 12/18/24 12/17/24 History mg tablet metoprolol succinate 25 mg 25 mg PO DAILY 12/18/24 12/18/24 12/17/24 History tablet,extended release 24 hr nitroglycerin 0.4 mg sublingual See Rx Instructions .Route .COMPLEX 12/18/24 12/18/24 Unknown History tablet sacubitril 24 mg-valsartan 26 mg 1 tab PO QPM 12/18/24 12/18/24 12/17/24 History tablet (Entresto) Allergies Allergy/AdvReac Type Severity Reaction Status Date / Time atorvastatin (From Lipitor) Allergy Unknown Unknown Verified 12/13/24 17:16 azithromycin Allergy Unknown Unknown Verified 12/13/24 17:16 levofloxacin (From Levaquin) Allergy Unknown Unknown Verified 12/13/24 17:16 Penicillins Allergy Unknown Unknown Verified 12/13/24 17:16 phenobarbital Allergy Unknown Unknown Verified 12/13/24 17:16 penbutolol Allergy Unknown Verified 12/13/24 17:16 macrobid AdvReac Severe Heart Uncoded 12/13/24 17:16 races, severe breathing, N & V Current Medications Generic Name Dose Route Start Last Admin Trade Name Freq PRN Reason Stop Dose Admin Sodium Chloride 50 ml 12/18/24 10:17 12/18/24 12:33 Sodium Chloride 0.9% 100 Ml Bag IV 12/19/24 10:17 50 ml PRN PRN Administration Blood transfusion prime and flush PFSH Acute PFSH: Medical History (Updated 12/18/24 @ 15:06 by Tony Reveles MD) Chronic systolic congestive heart failure Coronary artery disease Psychiatric care Cigarette smoker Chronic idiopathic constipation COPD (chronic obstructive pulmonary disease) OA (osteoarthritis) CKD (chronic kidney disease) Environmental and seasonal allergies Essential (primary) hypertension Surgical History History of hysterectomy Family History Other Nicotine dependence Social History Smoking and tobacco/nicotine status: former use of tobacco/nicotine Second hand smoke exposure: Yes Alcohol intake: never Substance/Drug Use: never Adopted: No Caregiver/support person: No Lives independently: Yes Household members: spouse Housing: House Marital status: service: No Do you think of yourself as: Straight/Heterosexual Current gender identity: Female Vitals/I&O/Wt Last Vital Signs Temp 98.3 F 12/18/24 12:43 Pulse 89 12/18/24 12:43 Resp 16 12/18/24 12:43 BP 115/63 12/18/24 12:43 Pulse Ox 95 12/18/24 12:43 O2 Del Method Room Air 12/18/24 12:31 12/17/24 12/18/24 12/18/24 22:59 06:59 14:59 Intake Total 600 / 600 Balance 600 / 600 Weight last 48 hrs Weight 95 lb Physical Exam Narrative: Chest: Unlabored breathing room air. No lymphadenopathy. Heart: Regular rate and rhythm. Abdomen: Soft, nontender, nondistended. No masses or lymphadenopathy. Data 12/19/24 04:39 12/19/24 04:39 A&P Assessment and plan 1. Lower gastrointestinal hemorrhage: Plan: 84-year-old female with multiple comorbidities including coronary artery disease on aspirin Plavix who presented with hematochezia. Had an extensive discussion with the patient, [id number], daughter. Answered all their questions. Explained the risks and benefits of EGD and colonoscopy. At this point family and patient are not comfortable proceeding with endoscopy. They have decided to revisit this tomorrow. In the meantime hospitalist is admitting for resuscitation. Will follow closely. CTA did not reveal a clear target for IR. However the alternative would be empiric embolization by IR of the sigmoid colon. This was discussed and explained to patient and family. Notified hospitalist. Notified ER physician. PDMP PDMP Reviewed: Not Reviewed Coding Level of Care Code 66449 Diagnoses Lower gastrointestinal hemorrhage K92.2
--- NOTE | 2024-12-18 13:29 | PC.NURSE ---
PATIENT COMPLAINING OF MINOR BACK DISCOMFORT. PATIENT READJUSTED IN BED AND STATES BETTER, BUT STILL PRESENT. THIS NURSE NOTIFIED PHYSICIAN OF COMPLAINT DUE TO BLOOD TRANSFUSION. DR HERMOSILLO STATES TO CONTINUE WITH TRANSFUSION LONG SHE IS NOT SYMPTOMATIC. NURSE VERBALIZES ONLY COMPLAINT OF BACK PAIN. DR HERMOSILLO STATES TO CONTINUE TRANSFUSION. SLOWED TO 150 ML/HR.
--- NOTE | 2024-12-18 13:46 | PC.NURSE ---
PER [facility] IN SURGERY, PATIENT WILL HAVE SURGERY TOMORROW AND CAN EAT UNTIL MIDNIGHT.
--- NOTE | 2024-12-18 14:50 | PM.MISC ---
Miscellaneous Note Note: Full consult note to follow. Had an extensive discussion with the patient, [id number], daughter. Answered all their questions. Explained the risks and benefits of EGD and colonoscopy. At this point family and patient are not comfortable proceeding with endoscopy. They have decided to revisit this tomorrow. In the meantime hospitalist is admitting for resuscitation. Will follow closely. CTA did not reveal a clear target for IR. However the alternative would be empiric embolization by IR of the sigmoid colon. This was discussed and explained to patient and family. Notified hospitalist. Notified ER physician.
--- NOTE | 2024-12-18 14:59 | PM.HP ---
Providers/Chief Complaint Admitting Physician: Tony Reveles MD Primary Care Provider: Carlos Mittal, FOREIGN COLLECTION CLERK-C Chief Complaint: GI Bleed History of Present Illness Brielle Turpin is a 84 year old female with past medical history of CAD most recent PCI in September 2024 to LAD, congestive heart failure due to ischemic cardiomyopathy with last known EF 30% on DAPT, chronic smoker, recent hip fracture, COPD, hypertension presents to the ER today because of ongoing red blood per rectum for last 2 days associated with dizziness and weakness. In the ED he was found to have a hemoglobin of 6.3. 2 units of blood transfused were ordered on examination patient laying comfortably in bed with family at bedside. Blood pressure of 118 systolic on room air. Patient herself denies any abdominal pain, chest pain, nausea or vomiting. As per the ER nurse patient did have mild back pain earlier in the admission. . Review of Systems General: Reports: 10 or more systems reviewed and unremarkable except in HPI and below Const: Denies: fever(s), chills, body aches, change in appetite, change in weight, malaise, night sweats, diaphoresis, change in sleep pattern, daytime sleepiness or snoring Eyes: Denies: change in vision, blurry vision, photophobia, eye discomfort or eye discharge ENMT: Denies: throat pain, enlarged tonsils, hoarseness, mouth pain, oral sores, dry mouth, tinnitus, nasal congestion or post nasal drip Card: Denies: chest pain, palpitations, irregular heart rhythm, edema, swelling of feet/ankles, lightheadedness, syncope, pre-syncope, dyspnea on exertion, orthopnea, leg pain with exertion or acrocyanosis Resp: Denies: dyspnea, productive cough, non-productive cough, wheezing, stridor, pain on inspiration, change in phlegm color, hemoptysis or chest congestion GI: Denies: abdominal pain, nausea, vomiting, hematemesis, coffee ground emesis, dysphagia, heartburn, diarrhea, constipation, bloating, GI cramping, change in bowel habits, pain on defecation, hematochezia or melena : Denies: flank pain, dysuria, urinary frequency, urinary urgency, urinary hesitancy, nocturia or hematuria Musc: Denies: neck pain, back pain, extremity pain, joint pain, joint swelling, joint redness, joint stiffness or limited range of motion Neuro: Denies: headache(s), numbness in extremities, weakness in extremities, sensory changes, lack of coordination, difficulty walking, frequent falls, dizziness, vertigo, confusion, Slurred speech present, difficulty communicating thoughts or seizure-like activity Psych: Denies: anxiety, depression, mood swings, panic attacks, hopelessness or irritability Endo: Denies: polyuria, polydipsia, tired all the time, cold intolerance, excessive sweating, flushing or heat intolerance Cecilio/Lymph: Denies: easy bruising or easy bleeding All/Imm: Denies: tongue swelling, facial swelling or acute wheezing Medications/Allergies Home Medications ?Medication ?Instructions ?Recorded ?Confirmed ?Last Taken ?Type acetaminophen 325 mg tablet 650 mg PO QID PRN Fever Or Pain 09/19/24 12/18/24 11/12/24 20:30 History (Tylenol) multivitamin with minerals-folic 1 tab PO DAILY 09/19/24 12/18/24 12/17/24 History acid 0.4 mg tablet aspirin 81 mg tablet,delayed 81 mg PO DAILY pain 30 days #30 09/26/24 12/18/24 12/17/24 Rx release (Lorenzo Low Dose Aspirin) tabs clopidogrel 75 mg tablet 75 mg PO DAILY #90 tabs 10/03/24 12/18/24 12/17/24 Rx cefdinir 300 mg capsule 300 mg PO Q12H #14 caps 12/12/24 12/18/24 12/17/24 Rx clomipramine 75 mg capsule 75 mg PO QAM 12/18/24 12/18/24 12/17/24 History escitalopram oxalate 10 mg tablet See Rx Instructions .Route .COMPLEX 12/18/24 12/18/24 Unknown History fenofibrate nanocrystallized 145 72.5 mg PO DAILY 12/18/24 12/18/24 12/17/24 History mg tablet metoprolol succinate 25 mg 25 mg PO DAILY 12/18/24 12/18/24 12/17/24 History tablet,extended release 24 hr nitroglycerin 0.4 mg sublingual See Rx Instructions .Route .COMPLEX 12/18/24 12/18/24 Unknown History tablet sacubitril 24 mg-valsartan 26 mg 1 tab PO QPM 11/07/0712/18/24 12/17/24 History tablet (Entresto) Allergies Allergy/AdvReac Type Severity Reaction Status Date / Time atorvastatin (From Lipitor) Allergy Unknown Unknown Verified 12/13/24 17:16 azithromycin Allergy Unknown Unknown Verified 12/13/24 17:16 levofloxacin (From Levaquin) Allergy Unknown Unknown Verified 12/13/24 17:16 Penicillins Allergy Unknown Unknown Verified 12/13/24 17:16 phenobarbital Allergy Unknown Unknown Verified 12/13/24 17:16 penbutolol Allergy Unknown Verified 12/13/24 17:16 macrobid AdvReac Severe Heart Uncoded 12/13/24 17:16 races, severe breathing, N & V PFSH Acute PFSH: Medical History (Updated 12/18/24 @ 15:06 by Tony Reveles MD) Chronic systolic congestive heart failure Coronary artery disease Psychiatric care Cigarette smoker Chronic idiopathic constipation COPD (chronic obstructive pulmonary disease) OA (osteoarthritis) CKD (chronic kidney disease) Environmental and seasonal allergies Essential (primary) hypertension Surgical History History of hysterectomy Family History Other Nicotine dependence Social History Smoking and tobacco/nicotine status: former use of tobacco/nicotine Second hand smoke exposure: Yes Alcohol intake: never Substance/Drug Use: never Adopted: No Caregiver/support person: No Lives independently: Yes Household members: spouse Housing: House Marital status: service: No Do you think of yourself as: Straight/Heterosexual Current gender identity: Female Vitals/I&O/Wt Last Vital Signs Temp 98.8 F 12/18/24 13:58 Pulse 80 12/18/24 13:58 Resp 16 12/18/24 13:58 BP 135/74 12/18/24 13:58 Pulse Ox 92 12/18/24 13:58 O2 Del Method Room Air 12/18/24 13:45 12/17/24 12/18/24 12/18/24 22:59 06:59 14:59 Intake Total 600 / 600 Balance 600 / 600 Weight last 48 hrs Weight 43.091 kg Physical Exam Narrative: General: No acute distress, AO x3, pallor present, dehydrated HEENT: PERRLA, pupils bilaterally equal and reactive Chest: Bilateral bronchial breath sounds over lower lung field with occasional rhonchi CVS: S1-S2 regular, pansystolic murmur at apex, no tachycardia, no gallops, no rubs Abdomen: Soft, nontender, no organomegaly, bowel sounds present but sluggish Neuro: No focal deficits, no facial deformity, AO x3, power 5/5 in all limbs Data 12/18/24 09:05 12/18/24 09:05 Other Labs: Radiology Impressions Abdomen/Pelvis CTA 12/18/24 10:01 IMPRESSION: Images in the pelvis degraded due to beam hardening artifact from LEFT FERNANDO 1. Normal caliber abdominal aorta with dense vascular calcification. Celiac and SMA are patent. 2. No evidence of active contrast extravasation in the sigmoid colon. 3. Mild wall thickening in the sigmoid colon although poorly evaluated due to beam hardening artifact LEFT FERNANDO. Diverticulosis. Recommend correlation for acute diverticulitis 4. Moderate pancolonic constipation. 5. Moderate esophageal hiatal hernia 6. No other acute findings. A&P Assessment and plan 1. Lower gastrointestinal hemorrhage: Hemoglobin down to 6.3. Surgery consulted for possible EGD and colonoscopy. CT abdomen pelvis does not show any active blush or active site of bleeding. Concern for possible diverticulitis and constipation. As per documentation and discussion between the surgical team and patient's family at the family is contemplating against colonoscopy. For now continue with resuscitation with blood transfusion of 2 units. Watch for fluid overload. IV Protonix 40 mg twice daily. NPO. Check iron panel, vitamin B12 and folate levels. Low concern for diverticulitis. Hold off on Zosyn or antibiotics for now. If spikes fever can start. 2. Anemia: Target hemoglobin more than 8. Blood transfusion as above. Iron studies as above. Monitor hemoglobin every 12 hours. 3. Ischemic cardiomyopathy: 4. Chronic systolic congestive heart failure: Last echocardiogram from September 2024 showed an EF of 30% with dilated LV, mild TR with PASP of 56 mmHg. Watch for fluid overload. 5. Coronary artery disease: Post PCI to mid LAD in September 2024. Given acute active bleeding for now we will hold off on DAPT. Patient is at high risk of stent thrombosis while holding off on DAPT with active GI bleeding. Will have to continue to monitor. Continue with home dose of metoprolol. Holding off on home dose of Entresto. Goal blood pressure less than 140/90 mmhg with mean over 65. 6. Chronic idiopathic constipation: Aggressive bowel regimen with milk of magnesia, senna Colace twice daily. Plan: N.p.o. Protonix to be sufficient for DVT prophylaxis SCD for DVT prophylaxis Patient is recently post PCI on DAPT. Currently DAPT on hold because of active GI bleeding. Did discuss with family in detail that due to holding off of DAPT she is at a higher risk of in-stent thrombosis but for now we will have to hold off otherwise she can have worsening bleeding. Family verbalized understanding and are agreeable to plan. Discussed with the family regarding need for possible early colonoscopy. Family verbalized understanding. Would like to discuss more amongst each other before making decision. CODE STATUS: Daughter will be DPOA. Full code. PDMP PDMP Reviewed: Not Reviewed Attestations Medical Necessity Statement*: Admission for more than 2 midnights for management of anemia in setting of lower GI bleed, on DAPT for recent PCI due to CAD, congestive heart failure Diagnoses Lower gastrointestinal hemorrhage K92.2 Anemia D64.9 Ischemic cardiomyopathy I25.5 Cardiomyopathy type: ischemic Chronic systolic congestive heart failure I50.22 Heart failure chronicity: chronic Heart failure type: systolic Coronary artery disease I25.10 Chronic idiopathic constipation K59.04
--- NOTE | 2024-12-18 16:03 | PC.NURSE ---
Patient transferred from ED to CSU at 1603 via a bed.
[2024-12-18 16:16] LABS: Lactic Sepsis W/Reflex 2.0 mmol/L (0.5-2.2)
[2024-12-18 16:31] LABS: Iron 15 ug/dL (37-145); Total Iron Binding Capacity 226 mcg/dl; Unsaturated Iron Binding 211 ug/dL (112-347)
[2024-12-18 16:47] LABS: Vitamin B12 622 pg/mL (232-1245)
[2024-12-18] MEDS: pantoprazole 40 mg SDV IVP (17:06)
--- NOTE | 2024-12-18 18:42 | PC.NURSE ---
Provider is contacted about Brielle Turpin, she takes clomipramine 75mg daily (in the morning) for OCD. Family and patient are concerned that it is not on her MAR.
[2024-12-18] MEDS: ondansetron 2 mg/ML SDV 2 mL 4 MG IVP (19:27)
[2024-12-19] VITALS (7 sets, daily range): BP systolic 117–147; BP diastolic 67–94; PULSE 86–108; RESP 16–29; TEMP 36.4–38; O2SAT 84–97
[2024-12-19] MEDS: pantoprazole 40 mg SDV IVP ×2 (05:02→16:41)
[2024-12-19] MEDS: metoprolol succinate ER (24 HR) 25 mg Tablet PO (05:02)
[2024-12-19 05:23] LABS: Hematocrit 33.1 % (36-47); Hemoglobin 11.30 g/dL (11.27-16.99); Mean Corpuscular HGB Conc 34.1 g/dL (30-55); Mean Corpuscular Hemoglobin 28.9 pg (27-33); Mean Corpuscular Volume 84.7 fl (85-98); Nucleated Red Blood Cells % 0 %; Platelet Count 402 10^3/cmm (157-399); Red Blood Count 3.91 10^6/uL (3.85-5.65); White Blood Count 5.68 10^3/uL (3.29-11.43)
[2024-12-19 05:54] LABS: Alanine Aminotransferase 12 U/L (0-33); Albumin Level 3.2 g/dL (3.5-5.2); Alkaline Phosphatase 85 U/L (35-105); Anion Gap 14.0 (5-19); Aspartate Amino Transferase 15 U/L (0-32); Blood Urea Nitrogen 18 mg/dL (8-23); Calcium 8.9 mg/dL (8.5-10.5); Carbon Dioxide 22 mmol/L (22-29); Chloride 99 mmol/L (98-107); Creatinine Clr Calc Pharmacy 39.4453; Globulin 3.1 g/dL (1.3-4.6); Glucose 94 mg/dL (65-115); Magnesium 2.0 mg/dL (1.7-2.3); Osmolality Calculated 274 mOsm/kg (285-295); Potassium 4.0 mmol/L (3.5-5.1); Sodium 131 mmol/L (136-145); Total Protein 6.3 g/dL (6.6-8.7)
--- NOTE | 2024-12-19 08:02 | PC.NURSE ---
Provider is updated that Brielle Turpin, she takes clomipramine 75mg daily (in the morning) for OCD. Family and patient are concerned that it is not on her MAR. Provider ordered that she can take her home medication, her daughter is bringing in the home medication.
[2024-12-19] MEDS: CLOMIPRAMINE 75 MG 75 EACH PO (09:55)
--- NOTE | 2024-12-19 10:09 | P.PN_ITS ---
Subjective 2 Subjective: Patient has changed her mind and now wants to proceed with colonoscopy and EGD Maroon bowel movements. No blood today as far as I can tell after discussing with nurse. Vitals/I&O/Wt Last Vital Signs Temp 99.4 F 12/19/24 07:20 Pulse 98 12/19/24 07:20 Resp 21 H 12/19/24 07:20 BP 127/94 12/19/24 07:20 Pulse Ox 84 L 12/19/24 07:20 O2 Del Method Room Air 12/19/24 07:20 12/18/24 12/19/24 12/19/24 22:59 06:59 14:59 Intake Total 820 / 1420 360 / 1780 Output Total 700 / 700 Balance 120 / 720 360 / 1080 Weight last 48 hrs Weight 107 lb 2.314 oz Weight 107 lb 12.897 oz Weight 48 lb 14.4 oz Weight 95 lb Physical Exam 2 Narrative: Chest: Unlabored breathing room air. No lymphadenopathy. Heart: Regular rate and rhythm. Abdomen: Soft, nontender, nondistended. No masses or lymphadenopathy. Data 12/19/24 04:39 12/19/24 04:39 A&P Assessment and plan 1. Lower gastrointestinal hemorrhage: Plan: 84-year-old female with multiple comorbidities including coronary artery disease with a stent placed in September 2024, heart failure, who presented with hematochezia. Initially patient as well as daughter and [id number] were not comfortable with the risks associated with endoscopy. They all decided to hold off. Today the patient has changed her mind. I had an extensive discussion with the patient. Explained nonprocedural/minimally invasive options including IR embolization. Answered all of her questions. She understands that she is at high risk of perioperative MS. She also understands that the risk include aspiration, iatrogenic perforation, worsening of her GI bleed which may lead to a colectomy as a last resort option. She expressed understanding and has decided to proceed. Ordered prep. Will plan for endoscopy upper and lower on 12/19/2024. I have explained the risks and benefits of a diagnostic EGD with biopsy and the patient agrees to proceed. I have explained the risks and benefits of a diagnostic colonoscopy and the patient agrees to proceed. Patient understands that hemoccult is not an alternative in this case and decides to proceed with colonoscopy. Had an extensive discussion with the patient. Answered all questions. Patient understands that the risks include a 1% risk of iatrogenic perforation and risk of aspiration. PDMP PDMP Reviewed: Not Reviewed Attestations 2 Medical Necessity Statement*: N/A Coding Level of Care Code 36007 Diagnoses Lower gastrointestinal hemorrhage K92.2
[2024-12-19 10:57] LABS: Hematocrit 33.4 % (36-47); Hemoglobin 11.20 g/dL (11.27-16.99)
[2024-12-19] MEDS: magnesium citrate Btl 296 mL PO ×2 (11:07→18:23)
--- NOTE | 2024-12-19 11:14 | P.PN_ITS ---
Subjective 2 Subjective: No acute events overnight. Seen with family at bedside. Patient denies any nausea, vomiting. Complaining of occasional chest pain. Denies any difficulty in breathing. Continues to have bloody bowel movements. Agreeable for colonoscopy today. Tmax since admission 100 Fahrenheit. Vitals/I&O/Wt Last Vital Signs Temp 99.6 F 12/19/24 11:02 Pulse 86 12/19/24 11:02 Resp 28 H 12/19/24 11:02 BP 132/67 12/19/24 11:02 Pulse Ox 92 12/19/24 11:02 O2 Del Method Nasal Cannula 12/19/24 11:02 12/18/24 12/19/24 12/19/24 22:59 06:59 14:59 Intake Total 820 / 1420 360 / 1780 Output Total 700 / 700 Balance 120 / 720 360 / 1080 Weight last 48 hrs Weight 48.6 kg Weight 48.9 kg Weight 22.181 kg Weight 43.091 kg Physical Exam 2 Narrative: General: No acute distress, AO x3, pallor present, dehydrated HEENT: PERRLA, pupils bilaterally equal and reactive Chest: Bilateral bronchial breath sounds over lower lung field with occasional rhonchi CVS: S1-S2 regular, pansystolic murmur at apex, no tachycardia, no gallops, no rubs Abdomen: Soft, nontender, no organomegaly, bowel sounds present but sluggish Neuro: No focal deficits, no facial deformity, AO x3, power 5/5 in all limbs Data 12/19/24 10:40 12/19/24 04:39 A&P Assessment and plan 1. Lower gastrointestinal hemorrhage: Hemoglobin down to 6.3. Surgery consulted for possible EGD and colonoscopy. CT abdomen pelvis does not show any active blush or active site of bleeding. Concern for possible diverticulitis and constipation. As per documentation and discussion between the surgical team and patient's family at the family is contemplating against colonoscopy. For now continue with resuscitation with blood transfusion of 2 units. Watch for fluid overload. IV Protonix 40 mg twice daily. NPO. Check iron panel, vitamin B12 and folate levels. Low concern for diverticulitis. Hold off on Zosyn or antibiotics for now. If spikes fever can start. 2. Anemia: Target hemoglobin more than 8. Blood transfusion as above. Iron studies as above. Monitor hemoglobin every 12 hours. 3. Ischemic cardiomyopathy: 4. Chronic systolic congestive heart failure: Last echocardiogram from September 2024 showed an EF of 30% with dilated LV, mild TR with PASP of 56 mmHg. Watch for fluid overload. 5. Coronary artery disease: Post PCI to mid LAD in September 2024. Given acute active bleeding for now we will hold off on DAPT. Patient is at high risk of stent thrombosis while holding off on DAPT with active GI bleeding. Will have to continue to monitor. Continue with home dose of metoprolol. Holding off on home dose of Entresto. Goal blood pressure less than 140/90 mmhg with mean over 65. 6. Chronic idiopathic constipation: Aggressive bowel regimen with milk of magnesia, senna Colace twice daily. Plan: N.p.o. Protonix to be sufficient for DVT prophylaxis SCD for DVT prophylaxis Patient is recently post PCI on DAPT. Currently DAPT on hold because of active GI bleeding. Did discuss with family in detail that due to holding off of DAPT she is at a higher risk of in-stent thrombosis but for now we will have to hold off otherwise she can have worsening bleeding. Family verbalized understanding and are agreeable to plan. Discussed with the family regarding need for possible early colonoscopy. Family verbalized understanding. Would like to discuss more amongst each other before making decision. CODE STATUS: Daughter will be DPOA. Full code. Plan for the day: Monitor hemoglobin Q12h. Post 2 unit of PRBC. Target Hb over 8. C/w Protonix and carafare. Agreeable for colonoscopy now. Surgery on board. Possibly tomorrow AM. CLD for now. NPO after MN. Hold DAPT. Monitor for chest pain. Goal BP with mean over 65. C/w home dose pf metoprolol. Cannot rule out mild colitis. Check stool studies. Afebrile overnight. Start on IV meropenem for now. Patient is allergic to Levaquin and penicillin. Requiring mild oxygen. Does have history of CHF. IV Lasix 20 mg one-time. PDMP PDMP Reviewed: Not Reviewed Attestations 2 Medical Necessity Statement*: Requires further hospitalization for management of anemia in setting of lower GI bleed in a patient on DAPT for recent PCI and awaiting colonoscopy Diagnoses Lower gastrointestinal hemorrhage K92.2 Anemia D64.9 Ischemic cardiomyopathy I25.5 Cardiomyopathy type: ischemic Chronic systolic congestive heart failure I50.22 Heart failure chronicity: chronic Heart failure type: systolic Coronary artery disease I25.10 Chronic idiopathic constipation K59.04
[2024-12-19] MEDS: meropenem 1,000 mg SDV 1000 MG IVP (12:52)
[2024-12-19] MEDS: FUROsemide 10 mg/mL SDV 2mL 20 MG IVP (18:23)
[2024-12-19 19:18] LABS: C.Diff PCR (Lab) NEGATIVE (Negative)
[2024-12-20] VITALS (15 sets, daily range): BP systolic 74–129; BP diastolic 39–77; PULSE 87–110; RESP 16–28; TEMP 36.5–37.7; O2SAT 78–99
[2024-12-20] MEDS: meropenem 1,000 mg SDV 1000 MG IVP ×2 (00:14→13:17)
[2024-12-20] MEDS: ondansetron 2 mg/ML SDV 2 mL 4 MG IVP (00:41)
--- NOTE | 2024-12-20 04:02 | ECG_ITS ---
[facility]: 2024-[facility]-20 Pat Name: Brielle Turpin Department: Room: 103 Gender: Female Physical Chemistry Professor: : 1940 Requested By: Celi Berger Order Number: [id number] Ricky MD: Lin Orr M.D. Measurements Intervals [place] Rate: 90 P: 85 NV: 155 QRS: -17 QRSD: 92 T: 61 QT: 381 QTc: 468 Interpretive Statements SINUS RHYTHM WITH OCCASIONAL VENTRICULAR PREMATURE COMPLEXES WITH OCCASIONAL SUPRAVENTRICULAR PREMATURE COMPLEXES NONSPECIFIC ST & T-WAVE ABNORMALITY Compared to ECG 09/19/2024 11:20:04 Ventricular premature complex(es) now present T-wave abnormality still present Electronically Signed On 12-21-2024 13:00:11 FLOOR COVERING PRINTER by Lin Orr M.D. [email or web address]
--- NOTE | 2024-12-20 04:29 | PC.NURSE ---
Around 0350 patient called nurses station stating she was finished using BSC. When this nurse went in to help patient of BSC patient stated I feel very nauseous and like I'm going to pass out . Right arm bp read 74/42 and left arm BP read 80/39. Additional help called to transfer patient to bed. Dr. Berger notified and received orders for 500 ml bolus repeat BP and then another 500 ml bolus plus an EKG. Lab already obtained AM labs and awaiting results. Patient currently in bed stating she feels less nauseous and better.
[2024-12-20 04:40] LABS: Hematocrit 34.7 % (36-47); Hemoglobin 11.60 g/dL (11.27-16.99); Mean Corpuscular HGB Conc 33.4 g/dL (30-55); Mean Corpuscular Hemoglobin 28.4 pg (27-33); Mean Corpuscular Volume 84.8 fl (85-98); Nucleated Red Blood Cells % 0 %; Platelet Count 433 10^3/cmm (157-399); Red Blood Count 4.09 10^6/uL (3.85-5.65); White Blood Count 6.24 10^3/uL (3.29-11.43)
--- NOTE | 2024-12-20 04:40 | PC.NURSE ---
Updated Dr. Berger regarding BP of 132/61. Received orders to hold the second 500 ml bolus.
[2024-12-20 04:56] LABS: Alanine Aminotransferase 15 U/L (0-33); Albumin Level 3.3 g/dL (3.5-5.2); Alkaline Phosphatase 93 U/L (35-105); Anion Gap 18.0 (5-19); Aspartate Amino Transferase 16 U/L (0-32); Blood Urea Nitrogen 18 mg/dL (8-23); Calcium 9.0 mg/dL (8.5-10.5); Carbon Dioxide 19 mmol/L (22-29); Chloride 98 mmol/L (98-107); Creatinine Clr Calc Pharmacy 39.4453; Globulin 3.3 g/dL (1.3-4.6); Glucose 109 mg/dL (65-115); Magnesium 2.3 mg/dL (1.7-2.3); Osmolality Calculated 276 mOsm/kg (285-295); Potassium 3.0 mmol/L (3.5-5.1); Sodium 132 mmol/L (136-145); Total Protein 6.6 g/dL (6.6-8.7)
[2024-12-20] MEDS: pantoprazole 40 mg SDV IVP (06:22)
[2024-12-20] MEDS: CLOMIPRAMINE 75 MG 75 EACH PO (06:22)
--- NOTE | 2024-12-20 07:41 | ANES.PREANE2 ---
Pre-Anesthetic Assessment Height/Weight: Height 5 ft 2 in Weight 96 lb 12.527 oz Temp Pulse Resp BP Pulse Ox O2 Del Method O2 Flow Rate 97.8 F 102 H 19 H 129/69 95 Nasal Cannula 2 12/20/24 07:33 12/20/24 07:33 12/20/24 07:33 12/20/24 07:33 12/20/24 07:33 12/20/24 07:33 12/20/24 04:21 Preop Diagnosis: Concern for GI bleed Operation Date: 12/20/24 08:00 Proposed Procedures p EGD(Not Applicable) - Shivam Herman MD s Colonoscopy(Not Applicable) - Shivam Herman MD Was Beta Giancarlo taken within 24 hours: Yes Was Clonidine taken within 24 hours: N/A Last intake: Intake Last Liquid Date 12/20/24 Last Liquid Time 06:29 Last Solid Date 12/17/24 Last Solid Time 12:00 Social No alcohol and No tobacco Exam alert, oriented x 3, clear to auscultation bilaterally and regular rate & rhythm Airway Submandibular: within normal limits Cervical ROM: within normal limits Mallampati: Class III Dentition: full Anesthetic Plan ASA status: 4 Anesthesia: MAC Other: Patient was recently admitted and underwent GA on 09/20/2024 without issues NPO since History of COPD, active tobacco user Hypertension on propranolol Patient has lupus, not on chronic steroids EKG showing sinus rhythm with T wave flattening Echo performed yesterday showing diffuse hypokinesis with a EF of 30%. Pulmonary hypertension with PA pressure of 56 labs reviewed and acceptable for surgery, type and screen performed Labs reviewed from today, NA 132, K+ 3.0, hemoglobin 11.6. Patient received 40 mill equivalents p.o. potassium this a.m. Plan for MAC anesthesia Medications/Allergies Home Medications ?Medication ?Instructions ?Recorded ?Confirmed ?Last Taken ?Type acetaminophen 325 mg tablet 650 mg PO QID PRN Fever Or Pain 09/19/24 12/18/24 11/12/24 20:30 History (Tylenol) multivitamin with minerals-folic 1 tab PO DAILY 09/19/24 12/18/24 12/17/24 History acid 0.4 mg tablet aspirin 81 mg tablet,delayed 81 mg PO DAILY pain 30 days #30 09/26/24 12/18/24 12/17/24 Rx release (Lorenzo Low Dose Aspirin) tabs clopidogrel 75 mg tablet 75 mg PO DAILY #90 tabs 10/03/24 12/18/24 12/17/24 Rx cefdinir 300 mg capsule 300 mg PO Q12H #14 caps 12/12/24 12/18/24 12/17/24 Rx clomipramine 75 mg capsule 75 mg PO QAM 12/18/24 12/18/24 12/17/24 History escitalopram oxalate 10 mg tablet See Rx Instructions .Route .COMPLEX 12/18/24 12/18/24 Unknown History fenofibrate nanocrystallized 145 72.5 mg PO DAILY 12/18/24 12/18/24 12/17/24 History mg tablet metoprolol succinate 25 mg 25 mg PO DAILY 12/18/24 12/18/24 12/17/24 History tablet,extended release 24 hr nitroglycerin 0.4 mg sublingual See Rx Instructions .Route .COMPLEX 12/18/24 12/18/24 Unknown History tablet sacubitril 24 mg-valsartan 26 mg 1 tab PO QPM 12/18/24 12/18/24 12/17/24 History tablet (Entresto) Allergies Allergy/AdvReac Type Severity Reaction Status Date / Time atorvastatin (From Lipitor) Allergy Unknown Unknown Verified 12/13/24 17:16 azithromycin Allergy Unknown Unknown Verified 12/13/24 17:16 levofloxacin (From Levaquin) Allergy Unknown Unknown Verified 12/13/24 17:16 Penicillins Allergy Unknown Unknown Verified 12/13/24 17:16 phenobarbital Allergy Unknown Unknown Verified 12/13/24 17:16 penbutolol Allergy Unknown Verified 12/13/24 17:16 macrobid AdvReac Severe Heart Uncoded 12/13/24 17:16 races, severe breathing, N & V Current Medications Generic Name Dose Route Start Last Admin Trade Name Freq PRN Reason Stop Dose Admin Escitalopram Oxalate 10 mg 12/19/24 05:00 12/20/24 06:22 Escitalopram 10 Mg Tablet PO 10 mg DAILY LAUREN Administration Fenofibrate 72.5 mg 12/19/24 05:00 12/20/24 06:23 Fenofibrate 145 Mg Tablet PO 72.5 mg DAILY LAUREN Administration Meropenem 1,000 mg 12/19/24 12:00 12/20/24 00:14 Meropenem 1,000 Mg Sdv IVP 1,000 mg Q12H LAUREN Administration Protocol Metoprolol Succinate 25 mg 12/19/24 05:00 12/20/24 05:47 Metoprolol Succinate Er (24 Hr) 25 Mg Tablet PO Not Given On Hold: 12/20/24 07:29 DAILY LAUREN Non-Formulary Medication 75 mg 12/19/24 10:00 12/20/24 06:22 Clomipramine PO 75 mg QAM LAUREN Administration Ondansetron HCl 4 mg 12/18/24 16:04 12/20/24 00:41 Ondansetron 2 Mg/Ml Sdv 2 Ml IVP 4 mg Q6H PRN Administration vomiting, or N/V if npo Pantoprazole Sodium 40 mg 12/18/24 16:04 12/20/24 06:22 Pantoprazole 40 Mg Sdv IVP 40 mg Q12H LAUREN Administration PFSH Anesthesia Medical History (Updated 12/18/24 @ 15:06 by Tony Reveles MD) Chronic systolic congestive heart failure Coronary artery disease Psychiatric care Cigarette smoker Chronic idiopathic constipation COPD (chronic obstructive pulmonary disease) OA (osteoarthritis) CKD (chronic kidney disease) Environmental and seasonal allergies Essential (primary) hypertension Surgical History History of hysterectomy Family History Other Nicotine dependence Social History Smoking and tobacco/nicotine status: former use of tobacco/nicotine Second hand smoke exposure: Yes Alcohol intake: never Substance/Drug Use: never Adopted: No Caregiver/support person: No Lives independently: Yes Household members: spouse Housing: House Marital status: service: No Do you think of yourself as: Straight/Heterosexual Current gender identity: Female Data Anesthesia 12/20/24 03:40 12/20/24 03:40 Short CBC 12/18/24 12/19/24 12/19/24 Range/Units 09:05 04:39 10:40 WBC 4.38 5.68 (3.29-11.43) 10^3/uL Hgb 6.30 L* 11.30 D 11.20 L (11.27-16.99) g/dL Hct 19.4 L* 33.1 L D 33.4 L (36-47) % MCV 87.0 84.7 L (85-98) fl Plt Count 384 402 H (157-399) 10^3/cmm Neut % (Auto) 73.9 73.0 % Neut # (Auto) 3.24 4.15 (1.8-7.7) 10^3/uL 12/20/24 Range/Units 03:40 WBC 6.24 (3.29-11.43) 10^3/uL Hgb 11.60 (11.27-16.99) g/dL Hct 34.7 L (36-47) % MCV 84.8 L (85-98) fl Plt Count 433 H (157-399) 10^3/cmm Neut % (Auto) 73.2 % Neut # (Auto) 4.57 (1.8-7.7) 10^3/uL BMP 12/18/24 12/19/24 12/20/24 09:05 04:39 03:40 Sodium 132 L 131 L 132 L Potassium 3.9 4.0 3.0 L Chloride 100 99 98 Carbon Dioxide 22 22 19 L BUN 22 18 18 Creatinine 0.7 0.8 0.7 Glucose 110 94 109 Calcium 8.8 8.9 9.0 Liver Function 12/18/24 12/19/24 12/20/24 Range/Units 09:05 04:39 03:40 Total Bilirubin 0.2 0.5 0.5 (0.15-1.2) mg/dL AST 12 15 16 (0-32) U/L ALT 9 12 15 (0-33) U/L Alkaline Phosphatase 73 85 93 (35-105) U/L Albumin 3.0 L 3.2 L 3.3 L (3.5-5.2) g/dL Blood Bank 12/18/24 09:05 Blood Type O Positive Rho(D) Type Rh positive Antibody Screen Negative Coags 12/18/24 09:05 PT 14.60 INR 1.07 APTT 36.4 Microbiology 12/19/24 17:41 Stool Lactoferrin - Final Stool Occult Blood (FIT) - Final Cardiac Studies: Echocardiogram 09/19/24 Sestamibi Stress Test (Cardiology) 09/22/24 Holter Monitor 11/13/23
--- NOTE | 2024-12-20 07:58 | P.PN_ITS ---
Subjective 2 Subjective: NAEON Vitals/I&O/Wt Last Vital Signs Temp 97.8 F 12/20/24 07:33 Pulse 102 H 12/20/24 07:33 Resp 19 H 12/20/24 07:33 BP 129/69 12/20/24 07:33 Pulse Ox 95 12/20/24 07:33 O2 Del Method Nasal Cannula 12/20/24 07:33 O2 Flow Rate 2 12/20/24 04:21 12/19/24 12/20/24 12/20/24 22:59 06:59 14:59 Intake Total 500 / 740 Output Total Balance - 500 / 738 Weight last 48 hrs Weight 96 lb 12.527 oz Weight 107 lb 2.314 oz Weight 107 lb 12.897 oz Weight 48 lb 14.4 oz Weight 95 lb Physical Exam 2 Narrative: rrr unlabored breathing abdomen soft, nt, nd Data 12/20/24 03:40 12/20/24 03:40 Micro: Microbiology 12/19/24 17:41 Stool Lactoferrin - Final Stool Occult Blood (FIT) - Final A&P Assessment and plan 1. Lower gastrointestinal hemorrhage: Plan: 84 yo female with hematochezia. Discussed risks and benefits and patient agrees to proceed with diagnostic EGD possible biopsy, possible hemostasis, colonoscopy, possible biopsy, possible polypectomy, possible hemostasis. She understands that she is higher risk than average for complications including PA, worsening bleeding, iatrogenic perforation. Discussed minimally invasive/non invasive options and patient still decides to proceed with endoscopy. PDMP PDMP Reviewed: Not Reviewed Attestations 2 Medical Necessity Statement*: NA Coding Level of Care Code 86025 Diagnoses Lower gastrointestinal hemorrhage K92.2
--- NOTE | 2024-12-20 08:31 | ANE.PACU2 ---
Inpatient post-anesthesia follow up: Airway intact: Yes Vital signs: Temperature 97.7 F Pulse Rate 90 Respiratory Rate 16 Blood Pressure 107/52 Pulse Oximetry 94 Oxygen Delivery Me thod Nasal Cannula Oxygen Flow Rate 2 Fraction of Inspir ed Oxygen Hydration adequate: Yes Nausea and vomiting: No Pain level: 1 Mental status: Baseline
--- NOTE | 2024-12-20 09:10 | PC.NURSE ---
BEDSIDE REPORT TO ALBERTO RN. HR 96 RR 18 O297 BP 116/62
--- NOTE | 2024-12-20 09:41 | P.DS_ITS ---
Discharge Providers Date of Admission: 12/18/24 12:23 Date of Discharge: December 20, 2024 Attending Provider at Admission: Tony Reveles MD Attending Provider at Discharge: Tony Reveles MD Primary Care Provider: ESTELA Alicia Diagnoses at Discharge Discharge Diagnosis 1. Lower gastrointestinal hemorrhage: Reason for Visit Reason for Visit: GI Bleed Hospital Course Hospital Course Brielle Turpin is a 84 year old female with past medical history of CAD most recent PCI in September 2024 to LAD, congestive heart failure due to ischemic cardiomyopathy with last known EF 30% on DAPT, chronic smoker, recent hip fracture, COPD, hypertension presents to the ER today because of ongoing red blood per rectum for last 2 days associated with dizziness and weakness. In the ED he was found to have a hemoglobin of 6.3. 2 units of blood transfused were ordered on examination patient laying comfortably in bed with family at bedside. Blood pressure of 118 systolic on room air. Patient herself denies any abdominal pain, chest pain, nausea or vomiting. As per the ER nurse patient did have mild back pain earlier in the admission. Patient was admitted to the hospital. She received 2 unit of blood transfusion after which her hemoglobin remained stable. She underwent EGD and sigmoidoscopy on 12/20 which showed no active bleeding and were consistent with external hemorrhoids. She has been discharged in hemodynamically stable condition with advised to hold off on aspirin and Plavix for now. She is to restart Plavix in 10 days. Aspirin to be restarted only after confirming with cardiology team. She is to follow-up with cardiology within next 2 weeks. She will take Protonix twice daily for next 2 weeks followed by 40 mg oral daily. Her dose of metoprolol has been changed to 12.5 mg daily. She is to check her blood pressure daily at home and maintain a blood pressure diary. She is to follow-up with her primary care provider within next 10 days for further adjustment of antihypertensive. Entresto has been withheld for now. She is to recheck hemoglobin in 4 to 5 days from now and from 1 week from initiation of Plavix. Physical Exam Narrative: General: No acute distress, AO x3, pallor present, dehydrated HEENT: PERRLA, pupils bilaterally equal and reactive Chest: Bilateral bronchial breath sounds over lower lung field with occasional rhonchi CVS: S1-S2 regular, pansystolic murmur at apex, no tachycardia, no gallops, no rubs Abdomen: Soft, nontender, no organomegaly, bowel sounds present but sluggish Neuro: No focal deficits, no facial deformity, AO x3, power 5/5 in all limbs Discharge Data Studies Completed and Pending Completed Studies During Hospitalization Category Date Time Status CTA abdomen pelvis [CT angio abdomen pelvis 79619] Stat Cat Scan 12/18/24 10:01 Completed Pending at discharge Category Date Time Status Complete Blood Count w/Auto AM LABS Lab 12/21/24 04:00 Ordered Comprehensive Metabolic Panel AM LABS Lab 12/21/24 04:00 Ordered Hemoglobin and Hematocrit Q12H Lab 12/20/24 10:28 Ordered Hemoglobin and Hematocrit Q12H Lab 12/20/24 22:28 Ordered Magnesium AM LABS Lab 12/21/24 04:00 Ordered OVA and Parasites, Conc and PE Routine Lab 12/19/24 17:41 Received Phosphorus AM LABS Lab 12/21/24 04:00 Ordered Salmonella / Shigella / Campy Routine Lab 12/19/24 17:41 Received Radiology Impressions Abdomen/Pelvis CTA 12/18/24 10:01 IMPRESSION: Images in the pelvis degraded due to beam hardening artifact from LEFT FERNANDO 1. Normal caliber abdominal aorta with dense vascular calcification. Celiac and SMA are patent. 2. No evidence of active contrast extravasation in the sigmoid colon. 3. Mild wall thickening in the sigmoid colon although poorly evaluated due to beam hardening artifact LEFT FERNANDO. Diverticulosis. Recommend correlation for acute diverticulitis 4. Moderate pancolonic constipation. 5. Moderate esophageal hiatal hernia 6. No other acute findings. Laboratory Results WBC 6.24 10^3/uL (3.29-11.43) 12/20/24 03:40 RBC 4.09 10^6/uL (3.85-5.65) 12/20/24 03:40 Hgb 11.60 g/dL (11.27-16.99) 12/20/24 03:40 Hct 34.7 % (36-47) L 12/20/24 03:40 MCV 84.8 fl (85-98) L 12/20/24 03:40 MCH 28.4 pg (27-33) 12/20/24 03:40 MCHC 33.4 g/dL (30-55) 12/20/24 03:40 RDW 13.7 % (12.1-15.1) 12/20/24 03:40 Plt Count 433 10^3/cmm (157-399) H 12/20/24 03:40 MPV 8.1 fL (7.4-10.4) 12/20/24 03:40 Neut % (Auto) 73.2 % 12/20/24 03:40 Lymph % (Auto) 10.9 % 12/20/24 03:40 [place] % (Auto) 10.7 % 12/20/24 03:40 Eos % (Auto) 4.5 % 12/20/24 03:40 Baso % (Auto) 0.2 % 12/20/24 03:40 Neut # (Auto) 4.57 10^3/uL (1.8-7.7) 12/20/24 03:40 Lymph # (Auto) 0.7 10^3/uL (0.8-4.8) L 12/20/24 03:40 [place] # (Auto) 0.7 10^3/uL (0.2-0.9) 12/20/24 03:40 Eos # (Auto) 0.3 10^3/uL (0.0-0.8) 12/20/24 03:40 Baso # (Auto) 0.0 10^3/uL (0.0-0.1) 12/20/24 03:40 Nucleated RBC % (auto) 0 % 12/20/24 03:40 Nucleated RBCs # 0.0 /100WBC 12/20/24 03:40 PT 14.60 SECONDS (12.1-14.9) 12/18/24 09:05 INR 1.07 (0.8-1.2) 12/18/24 09:05 APTT 36.4 SECONDS (23.9-36.7) 12/18/24 09:05 Sodium 132 mmol/L (136-145) L 12/20/24 03:40 Potassium 3.0 mmol/L (3.5-5.1) L 12/20/24 03:40 Chloride 98 mmol/L (98-107) 12/20/24 03:40 Carbon Dioxide 19 mmol/L (22-29) L 12/20/24 03:40 Anion Gap 18.0 (5-19) 12/20/24 03:40 BUN 18 mg/dL (8-23) 12/20/24 03:40 Creatinine 0.7 mg/dL (0.5-0.9) 12/20/24 03:40 GFR Calculation Not Reportable 12/20/24 03:40 Glucose 109 mg/dL (65-115) 12/20/24 03:40 Calculated Osmolality 276 mOsm/kg (285-295) L 12/20/24 03:40 Lactic Acid 2.0 mmol/L (0.5-2.2) 12/18/24 15:42 Calcium 9.0 mg/dL (8.5-10.5) 12/20/24 03:40 Phosphorus 3.8 mg/dL (2.5-4.5) D 12/20/24 03:40 Magnesium 2.3 mg/dL (1.7-2.3) 12/20/24 03:40 Iron 15 ug/dL (37-145) L 12/18/24 09:05 TIBC 226 mcg/dl 12/18/24 09:05 % Saturation 6.6 % (20-50) L 12/18/24 09:05 Unsat Iron Binding 211 ug/dL (112-347) 12/18/24 09:05 Total Bilirubin 0.5 mg/dL (0.15-1.2) 12/20/24 03:40 AST 16 U/L (0-32) 12/20/24 03:40 ALT 15 U/L (0-33) 12/20/24 03:40 Alkaline Phosphatase 93 U/L (35-105) 12/20/24 03:40 Total Protein 6.6 g/dL (6.6-8.7) 12/20/24 03:40 Albumin 3.3 g/dL (3.5-5.2) L 12/20/24 03:40 Globulin 3.3 g/dL (1.3-4.6) 12/20/24 03:40 Lipase 22 U/L (13-60) 12/18/24 09:05 Vitamin B12 622 pg/mL (232-1245) 12/18/24 09:05 Folate > 20.0 ng/mL (4.8-37.3) 12/19/24 04:39 C. difficile (PCR) Negative (Negative) 12/19/24 17:41 Blood Type O Positive 12/18/24 09:05 Rho(D) Type Rh positive 12/18/24 09:05 Antibody Screen Negative 12/18/24 09:05 Crossmatch See Detail 12/18/24 09:05 Vitals Last Vital Signs Temp 98.4 F 12/20/24 08:30 Pulse 94 12/20/24 08:30 Resp 16 12/20/24 08:30 BP 108/48 12/20/24 08:30 Pulse Ox 98 12/20/24 08:30 O2 Del Method Nasal Cannula 12/20/24 08:30 O2 Flow Rate 2 12/20/24 08:30 Discharge Plan Discharge Patient Disposition: Home Condition: Stable Prescriptions: New pantoprazole [Protonix] 40 mg tablet,delayed release (DR/EC) 40 mg PO QAM Qty: 60 0RF Rx Instructions: Twice daily for next 2 weeks followed by once daily Continued acetaminophen [Tylenol] 325 mg Tablet 650 mg PO QID PRN (Reason: Fever Or Pain) multivit with min-folic acid 0.4 mg Tablet 1 tab PO DAILY clomipramine 75 mg capsule 75 mg PO QAM nitroglycerin 0.4 mg tablet, sublingual See Rx Instructions .ROUTE .COMPLEX Rx Instructions: DISSOLVE 1 TABLET UNDER THE TONGUE EVERY 5 MINUTES NEEDED FOR CHEST PAIN. DO NOT EXCEED A TOTAL OF 3 DOSES IN 15 MINUTES. escitalopram oxalate 10 mg tablet See Rx Instructions .ROUTE .COMPLEX Rx Instructions: TAKE 1/2 TABLET BY MOUTH DAILY FOR 7 DAYS; THEN TAKE ONE TABLET DAILY. fenofibrate nanocrystallized 145 mg tablet 72.5 mg PO DAILY Changed metoprolol succinate 25 mg tablet extended release 24 hr 12.5 mg PO DAILY 30 Days Qty: 30 0RF Held clopidogrel 75 mg tablet 75 mg PO DAILY Qty: 90 3RF sacubitril-valsartan [Entresto] 24-26 mg tablet 1 tab PO QPM Hold Instructions: Restart once SBP more than 130 mmhg persistently Discontinued cefdinir 300 mg capsule 300 mg PO Q12H Qty: 14 0RF aspirin [Lorenzo Low Dose Aspirin] 81 mg Tablet,Delayed Release (Dr/Ec) 81 mg PO DAILY 30 Days Qty: 30 0RF Referrals: Carlos Mittal, SM[facility]ER-C [Primary Care Provider, Family Practice] - 12/26/24 3:00 pm Bess Koo FNP [Nurse Practitioner, Cardiology] - 01/16/25 8:30 am Discharge Diet: Advance as tolerated and Soft Mechanical Discharge Activity: Resume usual activity and Increase activity as tolerated Patient Instructions: GI Post Discharge Instructions w/ Anesthesia, Opioid Safety, Patient Portal & Dequan Instructions Activity Restrictions/Additional Instructions: If tolerates oral diet well after the procedure restrict fluid intake to less than 1500 cc, salt intake to less than 2 g daily. Advised to check her weight daily at home. Is advised that weight today would be the dry weight and if body weight increases by around 5 pounds, patient is to take an extra dose of Lasix daily till body weight comes down to weight today. If not able to come down to dry body weight in 1 week, then is to call card iology office for further recommendations. Patient was counseled in detail to take medications regularly as prescribed. Please check your blood pressure daily at home. Goal blood pressure is between 100-140 systolic. Take metoprolol 12.5 mg daily for now. Do not take Entresto. Restart Entresto only once systolic blood pressure persistently over 130 mmHg. Recheck hemoglobin in 4 to 5 days. Restart Plavix in 10 days. Recheck hemoglobin 1 week after restarting Plavix. Do not take aspirin for now. Please follow-up with cardiology team within next 2 weeks. Restart aspirin only if requested to do so by cardiology team. Discharge Attestations Time Spent in Discharge Care*: greater than 30 min Specific Discharge Activities: educating patient, educating and/or supporting family/caregiver, discussing with pcp/other providers, discussing with immigration case manager/social workers/dc planners, documenting/other paperwork and evaluating patient/reviewing data Status at Discharge: Cognitive status at discharge: cognitively intact , Behavioral status at discharge: cooperative , Functional status at discharge: uses cane/walker , Overall status at discharge: patient is progressing back to baseline Quality Metrics Clinical Quality Measures [ No reported AMI, CVA or VTE this stay] Coding Level of Care Code 83533 Total time (in minutes) for Discharge: 65 Diagnoses Lower gastrointestinal hemorrhage K92.2
[2024-12-20 09:50] LABS: Hematocrit 31.4 % (36-47); Hemoglobin 10.40 g/dL (11.27-16.99)
--- NOTE | 2024-12-20 11:03 | PC.SOCIAL ---
IMM Updated Updated pt on IMM. No questions voiced. Provided pt a copy. Initialed, dated, & timed a copy & placed in chart.
--- OUTSIDE RECORDS SUMMARY | 2024-12-26 07:48 | XMS_ITS | Encounter Summary ---
Author Organization [facility] Address [address] [place] [address] Care Team Providers Care Planner Name Role Phone Unavailable Primary Care Provider Unavailabl e Encounter Details Date Type Department Care Team (Latest Contact Info) Description 07/02/1997 Outpatient Historical [facility] General and Trauma Surgery[facility] [address] [place] [address] Chevy Kumar MD NO ADDRESS ON FILE Chronic cholecystitis (Primary Dx) Social History Tobacco Use Types Packs/Day Years Used Date Smoking Tobacco: Never Assessed Comments Unknown Sex and Gender Information Value Date Recorded Sex Assigned at Not on file 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
--- OUTSIDE RECORDS SUMMARY | 2024-12-26 07:48 | XMS_ITS | Clinical Summary ---
Author Organization [facility] Address [address] 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
== END 2024-12-20 14:00 | disposition home or self-care (01) ==
LOC: ER 12:16 → CSU 14:50 → ER IP 12-26 07:46
PROVIDERS: Student in an Organized Health Care Education/Training Program; Admitting Provider Student in an Organized Health Care Education/Training Program; Emergency Provider Student in an Organized Health Care Education/Training Program; PCP Nurse Practitioner; Visit Provider Student in an Organized Health Care Education/Training Program
PROC: 0DJ08ZZ Inspection of Upper Intestinal Tract, Via Natural or Artificial Opening Endoscopic (ICD-10-PCS; principal; 2024-12-20 08:00)
PROC: 0DJD8ZZ Inspection of Lower Intestinal Tract, Via Natural or Artificial Opening Endoscopic (ICD-10-PCS; CPT 45330; 2024-12-20 08:00)
DX: K57.30 Diverticulosis of large intestine without perforation or abscess without bleeding (principal); K64.4 Residual hemorrhoidal skin tags; Z79.02 Long term (current) use of antithrombotics/antiplatelets; Z79.82 Long term (current) use of aspirin; J44.9 Chronic obstructive pulmonary disease, unspecified; I25.10 Atherosclerotic heart disease of native coronary artery without angina pectoris; I13.0 Hypertensive heart and chronic kidney disease with heart failure and stage 1 through stage 4 chronic kidney disease, or unspecified chronic kidney disease; N18.9 Chronic kidney disease, unspecified; I50.22 Chronic systolic (congestive) heart failure; Z87.891 Personal history of nicotine dependence; D64.9 Anemia, unspecified; K59.04 Chronic idiopathic constipation
CPT/HCPCS: 36415; 36430; 43235; 45330; 74174; 80053; 82274; 82607; 82746; 83540; 83550; 83605; 83630; 83690; 83735; 84100; 85014; 85018; 85025; 85610; 85730; 86850; 86900; 86920; 87045; 87177; 87209; 87427; 87449; 87493; 93005; 94664; 96361; 96374; 99285; G0378; J1938; J2003; J2185; J2405; J2470; J2704; J7030; J9999; P9016